=== PATIENT | female | born 2005 | race Caucasian/White ===

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

== ENCOUNTER 2025-01-05 20:05 | Emergency (ER) | payer OTHER, SELFPAY ==
[2025-01-05 20:29] VITALS: PULSE 84; RESP 18; TEMP 36.8; O2SAT 100; BMI 23.9
--- NOTE | 2025-01-05 20:35 | XR_ITS ---
PROCEDURE INFORMATION: Exam: XR Left Foot Exam date and time: 01/05/2025 9:36 PM Age: 19 years old Clinical indication: Pain; Foot; Left; Additional info: Left foot injury TECHNIQUE: Imaging protocol: Radiologic exam of the left foot. Views: 3 or more views. COMPARISON: CR XR KNEE LT 3V 03/21/2024 15:48 FINDINGS: Bones/joints: No acute fracture or dislocation. Soft tissues: Normal. IMPRESSION: No acute fracture or dislocation.
--- NOTE | 2025-01-05 20:35 | XR_ITS ---
PROCEDURE INFORMATION: Exam: XR Left Ankle Exam date and time: 01/05/2025 9:38 PM Age: 19 years old Clinical indication: Pain; Ankle; Left; Additional info: Left foot injury TECHNIQUE: Imaging protocol: Radiologic exam of the left ankle. Views: 3 or more views. COMPARISON: CR XR FOOT LT MIN 3V 05/01/2025 21:36 FINDINGS: Bones/joints: No acute fracture or dislocation. Soft tissues: Normal. IMPRESSION: No acute fracture or dislocation.
[2025-01-05 21:40] VITALS: BP 126/58; PULSE 71; RESP 16; O2SAT 100
--- NOTE | 2025-01-05 21:45 | PC.NURSE ---
pt to x-ray at this time
--- NOTE | 2025-01-05 21:48 | ED_ITS ---
<Statement entered by Yumiko White DO - 01/06/25 00:53> I was consulted by the KRAIG, and we discussed the complexity of the problems being addressed. I approved the treatment and management plan for this patient's care in the emergency department, thus performing a substantive portion of the medical decision making. Yumiko White DO Discharge Plan Disposition Patient Disposition: Home, Self-Care Condition: Good Chief Complaint: PAIN Prescriptions Prescriptions: No Action levothyroxine 175 mcg tablet 175 mcg PO DAILY Patient Comments: TAKE 1 TABLET BY MOUTH ONCE DAILY pantoprazole 40 mg tablet,delayed release (DR/EC) 40 mg PO DAILY Qty: 30 0RF fluoxetine 10 mg Tablet 10 mg PO DAILY ondansetron 4 mg tablet,disintegrating 4 mg PO Q8H PRN (Reason: nausea and vomiting) Qty: 10 0RF ondansetron HCl 4 mg tablet 4 mg PO Q8H PRN (Reason: nausea and vomiting) 4 Days Qty: 10 0RF Referrals Follow up/Referrals: Kuldeep Harris MD [Primary Care Provider] - See instructions Brittney Blackburn DPM [Staff Physician] - See instructions Activity Restrictions/Add. Instructions Additional Instructions/Restrictions: Please wear your hard soled shoe to give support to your foot and you may weight-bear as tolerated. I recommend ice elevation and Tylenol alternating with Motrin for pain and swelling. If you have continued symptoms I have referred you to foot and ankle specialist. Please call tomorrow to make your appointment. Clinical Impressions Clinical Impression: Injury of foot, left Stand Alone Forms Stand Alone Forms: Work/School Release Print Language Print Language: Afghan Discharge ED Provider: Yumiko White General Adult HPI General Chief complaint: PAIN Stated complaint: AO 4-16 fell over a chair,left foot pain Time Seen by Provider: 01/05/25 21:48 Mode of Arrival: Ambulatory Source of Information: Patient Description of Symptoms (Recalled from ER Triage Doc. by RN): Pt presents for evaluation of left foot pain. Pt states she was running to break up a dog fight and rolled her ankle. History of Present Illness HPI narrative: Patient presents for evaluation of left foot pain. Patient states that she was running through the yard trying to catch a dog and she accidentally kicked an outside couch with her left hallux. It hurt but she was able to bear weight they did now appear to have happened approximately 1 to 2:00 in the morning. However as the day is gone along patient reports it is difficult to stand on but she denies any numbness tingling loss of motor or sensory. She did not fall or suffer any other injury. Related Data Home Medications ?Medication ?Instructions ?Recorded ?Confirmed levothyroxine 175 mcg tablet 175 mcg PO DAILY Thyroid 09/09/23 05/05/24 fluoxetine 10 mg tablet 10 mg PO DAILY 03/28/24 05/05/24 Previous Rx's ?Medication ?Instructions ?Recorded pantoprazole 40 mg tablet,delayed 40 mg PO DAILY #30 tabs 02/22/24 release ondansetron 4 mg disintegrating 4 mg PO Q8H PRN nausea and 03/28/24 tablet vomiting #10 tabs ondansetron HCl 4 mg tablet 4 mg PO Q8H PRN nausea and 09/10/24 vomiting 4 days #10 tabs Allergies Allergy/AdvReac Type Severity Reaction Status Date / Time mushroom Allergy Rash Verified 05/05/24 14:14 [facility] Disclaimer: The information contained in this section may have been updated after the patient was seen, as this information can be updated by other users. Medical History Marijuana use Serous otitis media This seems to be more of an issue on the left side than the right Dysfunction of left eustachian tube Tinnitus PTSD (post-traumatic stress disorder) GERD (gastroesophageal reflux disease) Hypothyroid Suicidal intent Intentional acetaminophen overdose Suicidal ideation Pain in female pelvis Surgical History Status post arthroscopy of left shoulder Status post shoulder surgery H/O adenoidectomy H/O thyroidectomy History of tonsillectomy and adenoidectomy History of placement of ear tubes Family History Other No significant family history Social History Smoking Status: Never smoker alcohol intake: never substance use type: marijuana current occupational status: employed and student Travel in the last 8 weeks: None number of children: 0 caffeine: No Have you lived/traveled outside US in past 30 days?: No Contact w/someone who lives/traveled outside US past 30 days?: No Exposure to someone with infectious disease in past 14 days?: No Do you have a fever (greater than 100.4 F or 38 C)?: No Have you tested positive for COVID-19: No Exposed to someone with COVID-19 in past 14 days?: No Do you have a sore throat?: No Do you have a cough?: No Do you have any weakness?: No Do you have any diarrhea?: No Are you experiencing any unusual bleeding?: No Do you have any muscle aches/pain?: No Do you have any abdominal pain?: No Are you experiencing loss of taste or smell?: No Other Medical History Have you received the Flu Vaccine for this season: No Have you received the Pneumonia Vaccine: No ROS Obtained: Yes Systems reviewed as appropriate & no additional complaints except as documented Physical Exam General General appearance: alert and in no apparent distress Respiratory Respiratory exam: Present normal lung sounds bilaterally Cardiovascular Cardiovascular exam: Present regular rate Neurological Exam Neurological exam: Present alert and oriented X3 Medical Decision Making Medical Records Screening: Per USPSTF and CDC recommendations, given the prevalence of disease in our region, it is our hospital?s policy to screen for HIV and viral Hepatitis for all patients aged 18 and over and those with ongoing risk factors. Rick Inquiry Pt receiving controlled substance: No Vital Signs: 01/05/25 20:29 01/05/25 21:40 Temperature 98.3 F Temperature Source Oral Pulse Rate 71 Pulse Rate [Right] 84 Respiratory Rate 18 16 Blood Pressure 126/58 L Blood Pressure Source Automatic Cuff Blood Pressure Source [Right Arm] Automatic Cuff Blood Pressure Position Sitting Blood Pressure Position [Right Arm] Sitting 02 Sat by Pulse Oximetry 100 100 Oxygen Delivery Method Room Air Room Air Orders (Tests/Meds): ORDERS Category Date Time Status Ankle XR - Left minimum 3 Views [XR ankle LT min 3V] Exams 01/05/25 20:35 Taken Stat XR foot LT min 3V Stat Exams 01/05/25 20:35 Taken Medical Decision Narrative: In summary patient is a 19-year-old female who presents to the emergency department for evaluation of left foot injury. Patient's vital signs are stable with a blood pressure 126/58 pulse 84 with a sinus rhythm on bedside monitor breathing 18 times a minute satting at 100% on room air, afebrile on arrival at 98.3. Physical exam is remarkable for tenderness at the left hallux but there is no obvious bony deformity ecchymosis contusions abrasions. Patient has painful but full range of motion. She has no tenderness anywhere else of the foot or ankle.. Differential diagnosis includes contusion versus fracture. Initial workup will be conducted with plain film x-rays. Initial interventions include Tylenol and ibuprofen. Initial workup reviewed by me and my informal interpretation of imaging shows no acute fracture.. Upon repeat evaluation patient reported moderate improvement in her pain after Tylenol Motrin.. Given this patient will be discharged with a hard soled shoe referred to podiatry for further evaluation and management for continued symptoms. Patient advised to continue RICE as compression elevation along with Tylenol alternate with Motrin. Critical Care Critical Care Time Critical Care Time: No
[2025-01-05 22:50] VITALS: BP 108/65; PULSE 71; RESP 18; TEMP 36.8; O2SAT 99
== END 2025-01-05 22:52 | disposition home or self-care (01) ==
PROVIDERS: Emergency Provider Emergency Medicine; PCP Internal Medicine Adolescent Medicine
DX: S99.922A Unspecified injury of left foot, initial encounter (principal); W23.0XXA Caught, crushed, jammed, or pinched between moving objects, initial encounter
CPT/HCPCS: 73610; 73630; 99284

== ENCOUNTER 2025-03-10 13:50 | Emergency (ER) | payer OTHER, SELFPAY ==
--- OUTSIDE RECORDS SUMMARY | 2024-12-24 17:30 | XMS_ITS ---
Author Organization [facility] PE D ARIK Address [address] [facility] [address] [place], [place] [address] Care Team Providers Care Data Entry Machine Operator Name Role Phone Kuldeep Harris Primary Care Provider [phone] Dorothy Kaplan Unavailable [phone] Migration, Provider Unavailable Unavailable REASON FOR VISIT Multum To [facility] Conversion Encounter Medications Medication SIG (Take, Route, Frequency, Duration) Notes Start Date End Date Status Famotidine 40 MG 1 tab(s) orally once a day (at bedtime) for 14 days 10/26/2023 Active Levothyroxine Sodium 150 MCG 1 tab(s) or ally once a day for 30 days 12/06/2024 Active Encounters Encounter Location Date Provider Diagnosis [facility] PED ARIK [address] [facility] [address] [place], [place] [address] 12/24/2024 Provider Migration Plan Of Treatment Medication Medication Name Sig Start Date Stop Date Notes Levothyroxine Sodium 150 MCG 1 tab(s) or ally once a day for 30 days 12/06/2024 Progress Notes * Magaly NATIONOB:2005 (20 yo F)Acc No.[id number]:12/24/2024 Patient: Liz DIAZ Provider: Chey medina Migration :2005 A ge:19 Y S ex:Female Date:12/24/2024 Address:[address], [id number] Pcp:Kuldeep Harris Subjective: * Chief Complaints: * 1 . Multum To [facility] Conversion Encounter. * Medical History: * Medications: T aking Famotidine 40 MG Tablet 1 tab(s) orally once a day (at bedtime) Objective: * Vitals: Assessment: Plan: * Treatment: * * Electronic signature of Prov ider Migration on 03/10/2025 at 02:04 PM EDT Sign off status: Pending * Provider: Chey medina Migration Date: 0 12/24/2024 Generated for Kimi mcknight/Niraj/Julianoitting on: 03/10/2025 02:04 PM EDT
--- OUTSIDE RECORDS SUMMARY | 2025-01-24 06:00 | XMS_ITS ---
Author Organization [facility] D ARIK Address [address] [place] [address] Care Team Providers Care Human Geography Instructor Name Role Phone Kuldeep Harris Primary Care Provider [phone] RosauraDorothy shoemaker Unavailable [phone] Allergies No Known Allergies Results Component Value Reference Range Notes BASIC METABOLIC PANEL (32805 ) Reviewed date:01/25/2025 04:41:42 PM Interpretation: Performing Lab:[id number] [employer][id number] Kevin Willoughby Notes/Report: NON-FASTING; NON-FASTING GLUCOSE 58 65-99 mg/dL Fasting reference interval UREA NITROGEN (BUN) 10 7-25 mg/dL CREATININE 0.96 0.50-0.96 mg/dL EGFR 87 > OR = 60 mL/min/1.73m2 BUN/CREATININE RATIO SEE NOTE: 6-22 (calc) Not Reported: BUN and Creatinine are within reference range. SODIUM 142 135-146 mmol/L POTASSIUM 4.0 3.5-5.3 mmol/L CHLORIDE 105 98-110 mmol/L CARBON DIOXIDE 29 20-32 mmol/L CALCIUM 9.3 8.6-10.2 mg/dL TSH W/REFLEX TO FT4 (93217) Reviewed date:01/26/2025 07:53:01 AM Interpretation: Performing Lab:[facility] [id number] [employer][id number] Kevin Willoughby Notes/Report: NON-FASTING; NON-FASTING NON-FASTING; NON-FASTING TSH W/REFLEX TO FT4 >150.00 Reference Range > or = 20 Years 0.40-4.50 Ranges First trimester 0.26-2.66 Second trimester 0.55-2.73 Third trimester 0.43-2.91 T4, FREE 1.1 0.8-1.4 ng/dL REASON FOR VISIT 7 wk follow up, pulled muscle-lt side of lower back Medications Medication SIG (Take, Route, Frequency, Duration) Notes Start Date End Date Status Famotidine 40 MG 1 tab(s) orally once a day (at bedtime) for 14 days 10/26/2023 Active Methocarbamol 500 MG 1-2 tabs Orally alex ry 12 hours as needed for back pain for 5 days 01/24/2025 Active Levothyroxine Sodium 150 MCG 1 tab(s) or ally once a day for 30 days 12/06/2024 Active Social History Tobacco Use: Social History Observation Description Date Details (start date - stop date) Current Smoker NA - NA Smoking: Question Answer Notes Are you a: current every day smoker Section Notes: Vapes Vital Signs Temperature 97.9 degrees Fahrenheit 01/25/20 25 Blood pressure systolic 112 mm Hg 01/25/20 25 Blood pressure diastolic 68 mm Hg 025 Heart Rate 78 /min 01/24/2025 Height 63.25 in 01/24/2025 Weight 133.2 lbs 01/24/2025 BMI 23.41 kg/m2 01/24/2025 Encounters Encounter Location Date Provider Diagnosis [facility] ARIK [address] [facility] [address] [place] [address] 01/24/2025 Dorothy Rosaura Elevated serum creatinine R79.89 ; Hypothyroidism, unspecified type E03.9 and Acute left-sided low back pain without sciatica M54.50 Assessments Encounter Date Diagnosis (ICD Code) Assessment Notes Treatment Notes Treatment Clinical Notes Section Notes 01/24/2025 Elevated serum creatinine (ICD-10 - R79.89) repeat today, againn encouraged better water intake, avoid NSAIDS. Renal US was normal. 01/24/2025 Hypothyroidism, unspecified type (ICD-10 - E03.9) repeat labs today, again encouraged compliance 01/24/2025 Acute left-sided low back pain without sciatica (ICD-10 - M54.50) suspect SI strain and some muscle spasm. reminded not to take NSAID but may use APAP as needed, ice. Plan Of Treatment Medication Medication Name Sig Start Date Stop Date Notes Methocarbamol 500 MG 1-2 tabs Orally alex ry 12 hours as needed for back pain for 5 days 01/24/2025 Next Appt Details Follow Up: prn, Reason: Progress Notes * Magaly NATIONOB:2005 (20 yo F)Acc No.[id number]:01/24/2025 Progress Notes Patient: Liz DIAZ Provider: VIOLETTA Monzon :2005 A ge:20 Y S ex:Female Date:01/24/2025 Address:[facility] [address], [facility], [id number] Pcp:Kuldeep Harris Subjective: * Chief Complaints: * 1 . 7 wk follow up. 2. Pulled muscle-lt side of lower back. * HPI: g en: presents for 6-wk follow up for hypothyroidism. States she is taking her medicine everyday at present but did miss an entire week recently so she doubled up for a few days to get back on track. denies any side effects. Labs 6 weeks ago indicated much better control and improved renal function. Today she also reports some left lower back pain, localized to the SI region. Tightness and pain with rotation or bending. No radicular pain, numbness or tingling. Started a couple days ago and has not attempted anything for treatment. No change in bowel or bladder function. * ROS: R ESPIRATORY: no S hortness of breath. C ARDIOLOGY: no D izziness. n o C hest pain. n o P alpitations. C ONSTITUTIONAL: no L oss of appetite. n o F atigue. ? E NT: no C hange in voice. * Medical History: S easonal allergies, PE tubes, Hypothyroidism, MDD, PTSD, Anxiety d/o, Self cutting, Hashimotos' goiter, GERD, Normal EGD and colonoscopy 06/13. * Surgical History: T onsillectomy 2012, PE tubes 2014, Thyroidectomy 07/2019, left shoulder . * Hospitalization/Major Diagno stic Procedure: T hyroidectomy 07/2019, pancreatitis-[facility] 10/2023. * Family History: F ather: alive. M other: . P aternal Grand Father: . P aternal Grand Mother: alive, multiple sclerosis, diagnosed with Diabetes. M aternal Grand Father: alive. Maternal Grand Mother: alive. P aternal uncle: . P aternal aunt: alive. M aternal uncle: alive. M aternal aunt: alive. S iblings: alive. 1 brother(s) , 1 sister(s) - healthy. . Mom's side- History of Breast Cancer. * Social History: S moking A re you a: c urrent every day smoker. R ecreational drug use: no. Exercise: yes. Home smoke detector use: yes. Caffeine: yes, 1 soda daily. Living Will: No. Alcohol: no. Sexually active: yes, 1 partner, uses protection. Travel outside US: no. Occupation: Student. Vapes. * Medications: T aking Famotidine 40 MG Tablet 1 tab(s) orally once a day (at bedtime) , Taking Levothyroxine Sodium 150 MCG Tablet 1 tab(s) orally once a day , Medication List reviewed and reconciled with the patient * Allergies: N .K.D.A. Objective: * Vitals: N urse: jl, Pain: 5-back, Temp: 97.9, RR: 16, HR: 78, BP: 112/68, Ht: 63.25, Wt: 133.2, BMI:23.41. * Examination: G eneral Examination: General P leasant and Cooperative, NAD on RA,. Heart: R egular Rate and Rhythm, no murmur, rubs or gallops. Lungs: c lear to auscultation,. Abdomen: s oft, NT/ND, BS present. neck n o thyromegaly, supple,. Psych N ormal Mood/Affect. t blaine left SI and paraspinals in the LS region on the left, normal reflexes, gait, ROM. Assessment: * Assessment: 1. H ypothyroidism, unspecified type - E03.9 (Primary) 2 . E levated serum creatinine - R79.89 3 . A cute left-sided low back pain without sciatica - M54.50 Plan: * Treatment: Value Reference Range G LUCOSE 58 L 65-99 - mg/dL * U ABIGAIL NITROGEN (BUN) 10 7-25 - mg/dL * C REATININE 0.96 0.50-0.96 - mg/dL * B UN/CREATININE RATIO SEE NOTE: 03-12 - (calc) * S ODIUM 142 135-146 - mmol/L * P OTASSIUM 4.0 3.5-5.3 - mmol/L * C HLORIDE 105 98-110 - mmol/L * C ARBON DIOXIDE 29 20-32 - mmol/L * C ALCIUM 9.3 8.6-10.2 - mg/dL * E GFR 87 > OR = 60 - mL/min/1 .73m2 * Patricia Mota 01/25/2025 04: 41:28 PM EDT > pt informedThis lab was reviewed by Patricia Mota on 01/25/2025 at 16:41 PM EDT ?LAB: TSH W/REFLEX TO FT4 (28959)* Value Reference Range T SH W/REFLEX TO FT4 >150.00 H - mIU/L * T 4, FREE 1.1 0.8-1.4 - ng/dL * Patricia Mota 01/25/2025 04: 41:28 PM EDT > pt informedThis lab was reviewed by Dorothy Kaplan on 01/26/2025 at 07:53 AM EDT Clinical Notes: repeat labs today, again encouraged compliance??2.?Elevated serum creatinine?LAB: BASIC METABOLIC PANEL (78900)* Value Reference Range G LUCOSE 58 L 65-99 - mg/dL * U ABIGAIL NITROGEN (BUN) 10 7-25 - mg/dL * C REATININE 0.96 0.50-0.96 - mg/dL * B UN/CREATININE RATIO SEE NOTE: 03-12 - (calc) * S ODIUM 142 135-146 - mmol/L * P OTASSIUM 4.0 3.5-5.3 - mmol/L * C HLORIDE 105 98-110 - mmol/L * C ARBON DIOXIDE 29 20-32 - mmol/L * C ALCIUM 9.3 8.6-10.2 - mg/dL * E GFR 87 > OR = 60 - mL/min/1 .73m2 * NakulPaoloeddie Moreno 01/25/2025 04: 41:28 PM EDT > pt informedThis lab was reviewed by Patricia Mota on 01/25/2025 at 16:41 PM EDT ?LAB: TSH W/REFLEX TO FT4 (83971)* Value Reference Range T SH W/REFLEX TO FT4 >150.00 H - mIU/L * T 4, FREE 1.1 0.8-1.4 - ng/dL * Paolo Motaeddie Moreno 01/25/2025 04: 41:28 PM EDT > pt informedThis lab was reviewed by Dorothy Kaplan on 01/26/2025 at 07:53 AM EDT Clinical Notes: repeat today, againn encouraged better water intake, avoid NSAIDS. Renal US was normal. ??3.?Acute left-sided low back pain without sciatica? Start Methocarbamol Tablet, 500 MG, 1-2 tabs, Orally, every 12 hours as needed for back pain, 5 days, 20, Refills 0.?? Clinical Notes: suspect SI strain and some muscle spasm. reminded not to take NSAID but may use APAP as needed, ice.?? * Follow Up: p rn * * Sign off status: Completed true * Provider: VIOLETTA Monzon Date: 0 01/24/2025 Generated for Kimi mcknight/Niraj/eTransmitting on: 0 03/10/2025 02:05 PM EDT History and Physical Notes * Examination Category Sub-Category Detail Notes Category Not es General Examination Heart: Regular Rate and Rhythm, no murmur, rubs or gallops tender left SI and paraspinals in the LS region on the left, normal reflexes, gait, ROM Lungs: clear to auscultatio n, Abdomen: soft, NT/ND, BS pres ent neck no thyromegaly, supp le, General Pleasant and Coopera tive, NAD on RA, Psych Normal Mood/Affect
--- OUTSIDE RECORDS SUMMARY | 2025-03-06 11:00 | XMS_ITS ---
Author Organization [facility] D ARIK Address [address] [place] [address] Care Team Providers Care Vector Control Assistant Name Role Phone Kuldeep Harris Primary Care Provider Dorothy Kaplan Unavailable [phone] Allergies No Known Allergies Results Component Value Reference Range Notes TSH W/REFLEX TO FT4 (25887) Reviewed date:03/07/2025 11:22:12 AM Interpretation: Performing Lab:[facility], [facility] [id number] [facility] Center[facility]xtoCijmJI[address] Kevin Willoughby Notes/Report: NON-FASTING TSH W/REFLEX TO FT4 1.97 Reference Range > or = 20 Years 0.40-4.50 Ranges First trimester 0.26-2.66 Second trimester 0.55-2.73 Third trimester 0.43-2.91 REASON FOR VISIT 6 wk f/u Medications Medication SIG (Take, Route, Frequency, Duration) Notes Start Date End Date Status Levothyroxine Sodium 150 MCG 1 tab(s) or ally once a day for 30 days Active Famotidine 40 MG 1 tab(s) orally once a day (at bedtime) for 14 days 10/26/2023 Active Social History Tobacco Use: Social History Observation Description Date Details (start date - stop date) Current Smoker NA - NA Smoking: Question Answer Notes Are you a: current every day smoker Section Notes: Vapes Vital Signs Temperature 99 degrees Fahrenheit 03/06/2025 Blood pressure systolic 104 mm Hg 03/06/20 25 Blood pressure diastolic 72 mm Hg 025 Heart Rate 92 /min 03/06/2025 Height 63.25 in 03/06/2025 Weight 133 lbs 03/06/2025 BMI 23.37 kg/m2 03/06/2025 Encounters Encounter Location Date Provider Diagnosis [facility] IM PED [facility] [address] [place] [address] 03/06/2025 Dorothy Kaplan Hypothyroidism, unspecified type E03.9 Assessments Encounter Date Diagnosis (ICD Code) Assessment Notes Treatment Notes Treatment Clinical Notes Section Notes 03/06/2025 Hypothyroidism, unspecified type (ICD-10 - E03.9) repeat labs today, again encouraged compliance Plan Of Treatment Next Appt Details Follow Up: 3 Months,Mamta quinonez son: Progress Notes * CHAPIS ThaddeusClaryOB:2005 (20 yo F)Acc No.[id number]:03/06/2025 Progress Notes Patient: Liz DIAZ Provider: VIOLETTA Monzon :2005 A ge:20 Y S ex:Female Date:03/06/2025 Address:[facility] [address], [facility], [id number] Pcp:Kuldeep Harris Subjective: * Chief Complaints: * 1 . 6 wk f/u. * HPI: H ypothyroidism: 20-year-old female with history of hypothyroidism status post thyroidectomy presents to follow-up regarding management. She has historically been noncompliant with taking replacement but reports that she has been taking it faithfully since our visit 6 weeks ago. Presents today to repeat blood work. She denies any new concerns. * ROS: C ONSTITUTIONAL: Reviewed, No Symptoms Reported: Y es. * Medical History: S easonal allergies, PE tubes, Hypothyroidism, MDD, PTSD, Anxiety d/o, Self cutting, Hashimotos' goiter, GERD, Normal EGD and colonoscopy 06/13. * Surgical History: T onsillectomy 2012, PE tubes 2014, Thyroidectomy 07/2019, left shoulder . * Hospitalization/Major Diagno stic Procedure: T hyroidectomy 07/2019, pancreatitis-H 10/2023. * Family History: F ather: alive. [...] 1 tab(s) orally once a day , Discontinued Methocarbamol 500 MG Tablet 1-2 tabs Orally every 12 hours as needed for back pain , Medication List reviewed and reconciled with the patient * Allergies: N .K.D.A. Objective: * Vitals: N urse: jl, Pain: 0, Temp: 99, RR: 18, HR: 92, BP: 104/72, Ht: 63.25, Wt: 133, BMI:23.37. * Examination: G eneral Examination: General P leasant and Cooperative, NAD on RA,. Heart: R egular Rate and Rhythm, no murmur, rubs or gallops. Lungs: c lear to auscultation,. Abdomen: s oft, NT/ND, BS present. neck s upple,, no lymphadenopathy,. Psych N ormal Mood/Affect. Assessment: * Assessment: 1. H ypothyroidism, unspecified type - E03.9 (Primary) Plan: * Treatment: Value Reference Range T SH W/REFLEX TO FT4 1.97 - mIU/L Clinical Notes: repeat labs today, again encouraged compliance?? * Follow Up: 3 Months,prn * * Sign off status: Completed true * Provider: VIOLETTA Monzon Date: 03/06/2025 Generated for Kimi mcknight/Niraj/Sarkis on: 03/10/2025 02:05 PM EDT History and Physical Notes * Examination Category Sub-Category Detail Notes Category Not es General Examination Heart: Regular Rate and Rhythm, no murmur, rubs or gallops Lungs: clear to auscultatio n, Abdomen: soft, NT/ND, BS pres ent neck supple,, no lymphade nopathy, General Pleasant and Coopera tive, NAD on RA, Psych Normal Mood/Affect
[2025-03-10 14:00] VITALS: BP 126/58; PULSE 74; RESP 20; TEMP 37.1; O2SAT 99; BMI 23.6
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
--- OUTSIDE RECORDS SUMMARY | 2025-03-10 14:04 | XMS_ITS | Encounter Summary ---
Author Organization [facility] Address [address] [id number] Care Team Providers Care Cloth Stock Sorter Name Role Phone Con Maloneyen Champ MORALES Primary Care Provider [phone] Reason for Referral * Consultation (Routine) - Authorized Specialty Diagnoses / Procedures Referred By Denise hernandez Referred To Contact Nephrology Diagnoses Abnormal kidney function Dorothy Kaplan, HEEL PACKER [address] [place] [address] Phone: tel: fax: [facility], [place] [address] [facility], [address] [place] [address] Phone: tel: fax: Referral ID Status Reason Start Date Expiration Date Visits Requested Visits Authorized [id number] Authorized Specialty Services Required 10/28/2024 04/29/2026 1 1 * Consultation (Routine) - Authorized Specialty Diagnoses / Procedures Referred By Denise hernandez Referred To Contact Endocrinology Diagnoses Acquired hypothyroidism Dorothy Kaplan, HEEL PACKER [address] [address] Phone: tel: fax: [facility] Endocrinology [address] [place] [address] Phone: tel: fax: Referral ID Status Reason Start Date Expiration Date Visits Requested Visits Authorized [id number] Authorized Specialty Services Required 10/28/2024 04/29/2026 1 1 Encounter Details Date Type Department Care Team (Latest Contact Info) Description 10/28/2024 [facility] Practice [address] [place] [address] Dorothy Kaplan APRN [address] [address] Acquired hypothyroidism (Primary Dx); Abnormal kidney function Social History Tobacco Use Types Packs/Day Years Used Date Smoking Tobacco: Passive Smo ke Exposure - Never Smoker Alcohol Use Standard Drinks/Week Comments No 0 (1 standard drink = 0.6 oz pur e alcohol) Comments Unknown Sex and Gender Information Value Date Recorded Sex Assigned at Not on file Legal Sex Female 7:04 PM EDT Gender Identity Not on file Sexual Orientation Not on file documented as of this encounter Plan of Treatment Scheduled Referrals Name Type Priority Associated Diagnoses Orde r Schedule Ambulatory referral to Endocrinology Outpatient Referral Routine Acquired hypothyroidism Ordered: 10/28/2024 Ambulatory referral to Nephrology Outpatient Referral Routine Abnormal kidney function Expected: 10/28/2024 (Approximate), Expires: 04/27/2026 documented as of this encounter Visit Diagnoses Diagnosis Acquired hypothyroidism- Primary Unspecified hypothyroidism Abnormal kidney function Nonspecific abnormal results of kidney function study documented in this encounter Additional Health Concerns Assessment Noted Time A fall risk assessment has been complete d for the patient 08/13/2021 8:24 AM EST documented as of this encounter Care Teams Cloth Stock Sorter Relationship Specialty Start Date End Date Katherin Maloney DO [address] [address] PCP - General 02/01/21 documented as of this encounter
--- OUTSIDE RECORDS SUMMARY | 2025-03-10 14:04 | XMS_ITS | Encounter Summary ---
Author Organization [facility] Address [address] [place] [address] Care Team Providers Care College Specialist Name Role Phone Katherin Maloney DO Primary Care Provider [phone]- [phone] Encounter Details Date Type Department Care Team (Late st Contact Info) Description 04/16/2023 [facility] [address] [place] [address] Nica Rae DO [address] [place] [address] Chronic abdominal pain (Primary Dx) Social History Tobacco Use Types Packs/Day Years [...] as of this encounter Visit Diagnoses Diagnosis Chronic abdominal pain- Primary Abdominal pain, unspecified site documented in this encounter Additional Health Concerns Assessment Noted Time A fall risk assessment has been complete d for the patient 08/13/2021 8:24 AM EST documented as of this encounter Care Teams College Specialist Relationship Specialty Start Date End Date Katherin Maloney DO [address] [place] [address] PCP - General 02/01/21 documented as of this encounter
--- OUTSIDE RECORDS SUMMARY | 2025-03-10 14:04 | XMS_ITS | Clinical Summary ---
Author Organization Healthcare Address [address] [place] [address] Care Team Providers Care Sole Layer Name Role Phone Haider Katherin Champ MORALES Primary Care Provider [phone] Allergies No known active allergies Medications FLUoxetine (PROzac) 40 MG capsule 08/01/2021 Active Euthyrox 150 MCG tablet 07/17/2021 Active nitrofurantoin, macrocrystal-mon ohydrate, (Macrobid) 100 MG capsule 08/06/2021 Active pantoprazole (Protonix) 40 MG EC tablet Take 1 tablet (40 mg total) by mouth 1 (one) time each day before breakfast. 30 tablet 3 08/13/2021 Active Active Problems Problem Noted Date Diagnosed Date Chronic abdominal pain 08/13/2021 Bilious vomiting with nausea 08/13/2021 Nicotine dependence due to vaping tobacco produc t 08/13/2021 Family History Medical History Relation Name Comments Schizophrenia Father Conversions - Other Mother Family m ember Multiple sclerosis Other 1 Thyroid disease Other 2 Relation Name Status Comments Father Mother Other 1 Other 2 Social History Tobacco Use Types Packs/Day Years [...] on file Sexual Orientation Not on file Last Filed Vital Signs Vital Sign Reading Time Taken Comments Blood Pressure 122/66 09/05/2021 10:20 AM EST Pulse 86 09/05/2021 10:20 AM EST Temperature 36.9 C (98.4 F) 09/05/2021 10:00 AM EST Respiratory Rate 16 09/05/2021 10:20 AM EST Oxygen Saturation 100% 09/05/2021 10:20 AM EST Inhaled Oxygen Concentration - - Weight 64.5 kg (142 lb 3.2 oz) 09/05/2021 8:23 A M EST Height 160.5 cm (5' 3.19 ) 09/05/2021 8:23 AM ES T Body Mass Index 25.04 09/05/2021 8:23 AM EST Plan of Treatment Health Maintenance Due Date Last Done Comments [facility]-Depression Screening 2005 [facility]-Infant/Child/Adol SDOH Screenings 2005 [facility]- SDOH Screenings 2023 [facility]-Adult SDOH Screenings 2023 PYP-NVANF-98 Vaccine ( season) 2024 [facility]-Influenza Vaccine (Season Ended) 2025 09/10/2022, 07/10/2021, 06/29/2020, Additional history exists [facility]-DTaP,Tdap,and Td Vaccines (7 - Td or Tdap) 02/19/2026 02/20/2016, 02/01/2010, 06/29/2006, Additional history exists [facility]-Zoster Vaccines (1 of 2) 2055 02/20/2016, 11/10/2014, 01/12/2006 [facility]-Pneumococcal Vaccine: Pediatrics (0 to 5 Years) and At-Risk Patients (6 to 49 Years) Aged Out 2005, 2005, 2005 No longer eligible based on patient's age to complete this topic [facility]-Hepatitis B Vaccines Completed 006, 2005, 2005 [facility]-HIB Vaccines Completed 07/06/2006, , 2005, Additional history exists [facility]-IPV Vaccines Completed 02/01/2010, , 01/12/2006, Additional history exists [facility]-Varicella Vaccines Completed 6, 11/10/2014, 01/12/2006 HPV Vaccines Completed 10/19/2017, 03/21, 02/20/2016 [facility]-Hepatitis A Vaccines Completed 10/19/2017, 03/21 [facility]-Rotavirus Vaccines Aged Out No lo nger eligible based on patient's age to complete this topic Insurance [facility] MEDICAID [facility] MEDICAID Arturo Lozano, [place] [address] [facility] MEDICAID Advance Directives Documents on File Type Date Recorded Patient Sausage Stringer Expl anation Power of Cerner Analyst 08/12/2021 POA for An otf Care Teams Sole Layer Relationship Specialty Start Date End Date Katherin Maloney DO [address] [facility] [address] [id number] PCP - General 02/01/21
--- OUTSIDE RECORDS SUMMARY | 2025-03-10 14:05 | XMS_ITS | Clinical Summary ---
Author Organization [facility] Address [address] [place] [address] Phone Care Team Providers Care Chief Dietitian Name Role Phone Kuldeep Harris MD Primary Care Provider [phone] Allergies No known active allergies Medications LEVOthyroxine (SYNTHROID) 175 mcg Oral Tablet Take 175 mcg by mouth daily. Active FLUoxetine (PROZAC) 10 mg Oral Capsule Take 10 mg by mouth daily. Active linaCLOtide (LINZESS) 145 mcg Oral Capsule Take 145 mcg by mouth daily. Active Social History Tobacco Use Types Packs/Day Years Used Date Smoking Tobacco: Never Alcohol Use Standard Drinks/Week Comments No 0 (1 standard drink = 0.6 oz pur e alcohol) Sexually Active Control Partners Comments Never Comments Unknown Sex and Gender Information Value Date Recorded Sex Assigned at Not on file Legal Sex Female 7:34 PM EDT Gender Identity Not on file Sexual Orientation Not on file Obstetrics History Last Filed Vital Signs Vital Sign Reading Time Taken Comments Blood Pressure 134/77 02/21/2024 7:21 PM EDT Pulse 81 02/21/2024 7:21 PM EDT Temperature 36.8 C (98.3 F) 02/21/2024 5:51 PM EDT Respiratory Rate 17 02/21/2024 7:21 PM EDT Oxygen Saturation 100% 02/21/2024 7:21 PM EDT Inhaled Oxygen Concentration - - Weight 64.4 kg (142 lb) 02/21/2024 5:53 PM EDT Height 157.5 cm (5' 2 ) 02/21/2024 5:53 PM EDT Body Mass Index 25.97 02/21/2024 5:53 PM EDT Plan of Treatment Health Maintenance Due Date Last Done Comments Annual Wellness Exam 01/10/2008 Meningococcal B Vaccine (1 of 2 - Standard) 2021 COVID-19 Vaccine (1 - season) 2024 Influenza Vaccine (Season Ended) 2025 09/10/2022, 07/10/2021, 06/29/2020, Additional history exists DTaP/TDaP/Td (7 - Td or Tdap) 02/19/2026 02/20/2016, 02/01/2010, 02/01/2010, Additional history exists Pneumococcal Vaccine 0-49 Aged Out 2005, 2005, 2005 No longer eligible based on patient's age to complete this topic Hepatitis B Vaccine Completed 01/12/2006, 2005, 2005 HPV Completed 10/19/2017, 03/21, 02/20/2016 Insurance [facility] [place] Care Teams Chief Dietitian Relationship Specialty Start Date End Date Kuldeep Harris MD [address] [place] [address] [place] [id number] PCP - General Internal Medicine-Adolescent Medicine 12/15/23
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
[2025-03-10] MEDS: MUPIROCIN 2% OINTMENT 22GM TUBE 15 GM TP (14:06)
[2025-03-10] MEDS: ACETAMINOPHEN 500MG TAB 1000 MG PO (14:06)
[2025-03-10] MEDS: IBUPROFEN 400 MG TABLET PO (14:06)
[2025-03-10 14:08] VITALS: BP 127/62; PULSE 70; RESP 20; TEMP 37.1; O2SAT 100
== END 2025-03-10 14:12 | disposition home or self-care (01) ==
LOC: ER 14:03
PROVIDERS: Emergency Provider Student in an Organized Health Care Education/Training Program; PCP Internal Medicine Adolescent Medicine
DX: T24.031A Burn of unspecified degree of right lower leg, initial encounter (principal); F17.290 Nicotine dependence, other tobacco product, uncomplicated; K21.9 Gastro-esophageal reflux disease without esophagitis; F41.9 Anxiety disorder, unspecified
CPT/HCPCS: 99284

== ENCOUNTER 2025-04-28 11:28 | Outpatient (CLI) | payer OTHER, SELFPAY ==
--- OUTSIDE RECORDS SUMMARY | 2006-11-09 01:00 | XMS_ITS | Encounter Summary ---
Author Organization [facility] Address [address] [place] [address] Care Team Providers Care Gas Plant Worker Name Role Phone Unavailable Primary Care Provider Unavailabl e Encounter Details Date Type Department Care Team (Late st Contact Info) Description 11/09/2006 Hospital Encounter [facility] Division of Cardiology [address] [place] [phone] Social History Tobacco Use Types Packs/Day [...]
--- OUTSIDE RECORDS SUMMARY | 2025-03-06 11:00 | XMS_ITS ---
Author Organization [facility] D ARIK Address [address] [place] [address] Care Team Providers Care Recapper Name Role Phone Kuldeep Harris Primary Care Provider Dorothy Kaplan Unavailable [phone] Allergies No Known Allergies Results Component Value Reference Range Notes TSH W/REFLEX TO FT4 ([id number]) Reviewed date:03/07/2025 11:22:12 AM Interpretation: Performing Lab:CLAIRE, [facility] [id number] [facility] CenterCalixtoNhkwFJ[address] Kevin Willoughby Notes/Report: NON-FASTING TSH W/REFLEX TO FT4 1.97 Reference Range > or = 20 Years 0.40-4.50 Ranges First trimester 0.26-2.66 Second trimester 0.55-2.73 Third trimester 0.43-2.91 REASON FOR VISIT 6 wk f/u Medications Medication SIG (Take, Route, Frequency, Duration) Notes Start Date End Date Status Levothyroxine Sodium 150 MCG 1 tab(s) or ally once a day; Duration: 30 days Active Famotidine 40 MG 1 tab(s) orally once a day (at bedtime); Duration: 14 days 10/26/2023 Active Social History Tobacco [...] 03/06/2025 Encounters Encounter Location Date Provider Diagnosis [facility] PED [facility] [address] [place] [address] 03/06/2025 Dorothy Kaplan Hypothyroidism, unspecified type E03.9 Assessments Encounter Date Diagnosis (ICD Code) Assessment Notes Treatment Notes Treatment Clinical Notes Section Notes 03/06/2025 Hypothyroidism, unspecified type (ICD-10 - E03.9) repeat labs today, again encouraged compliance Plan Of Treatment Next Appt Details Follow Up: 3 Months,Mamta quinonez son: Progress Notes * Thaddeus NATIONClaryOB:2005 (20 yo F)Acc No.[id number]:03/06/2025 Progress Notes Patient: Liz DIAZ Provider: VIOLETTA Monzon :2005 A ge:20 Y S ex:Female Date:03/06/2025 Address:[facility] [address], [facility], [id number] Pcp:Kuldeep Harris Subjective: * Chief Complaints: * [...] Hospitalization/Major Diagno stic Procedure: T hyroidectomy 07/2019, pancreatitis- 10/2023. * Family History: F ather: alive. [...] true * Provider: VIOLETTA Monzon Date: 0 03/06/2025 Generated for Kimi mcknight/Niraj/Sarkis on: 0 04/28/2025 11:31 AM EDT History and Physical Notes * Examination Category Sub-Category Detail Notes Category Not es General Examination Heart: Regular Rate and Rhythm, no murmur, rubs or gallops Lungs: clear to auscultatio n, Abdomen: soft, NT/ND, BS pres ent neck supple,, no lymphade nopathy, General Pleasant and Coopera tive, NAD on RA, Psych Normal Mood/Affect
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
--- OUTSIDE RECORDS SUMMARY | 2025-04-28 11:32 | XMS_ITS | Encounter Summary ---
Author Organization [facility] Address [address] [id number] Care Team Providers Care Visual Training Aide Name Role Phone Con Maloneyen Champ MORALES Primary Care Provider [phone]- [phone] Reason for Referral * Consultation (Routine) - Authorized Specialty Diagnoses / Procedures Referred By Denise hernandez Referred To Contact Nephrology Diagnoses Abnormal kidney function Dorothy Kaplan, PONY ROUGHER [address] [place] [address] Phone: tel: fax: [facility] Nephrology, Bone & Mineral Metabolism [address] [facility], [address] [place] [address] Phone: tel: fax: Referral ID Status Reason Start Date Expiration Date Visits Requested Visits Authorized [id number] Authorized Specialty Services Required 10/28/2024 04/29/2026 1 1 * Consultation (Routine) - Authorized Specialty Diagnoses / Procedures Referred By Denise hernandez Referred To Contact Endocrinology Diagnoses Acquired hypothyroidism Dorothy Kaplan, PONY ROUGHER [address] [address] Phone: tel: fax: [facility] Endocrinology [address] [place] [address] Phone: tel: fax: Referral ID Status Reason Start Date Expiration Date Visits Requested Visits Authorized [id number] Authorized Specialty Services Required 10/28/2024 04/29/2026 1 1 Encounter Details Date Type Department Care Team (Latest Contact Info) Description 10/28/2024 [facility] [address] [place] [address] Dorothy Kaplan APRN [address] [address] Acquired hypothyroidism (Primary Dx); Abnormal kidney function [...] documented as of this encounter Care Teams Visual Training Aide Relationship Specialty Start Date End Date Katherin Maloney DO [address] [address] PCP - General 02/01/21 documented as of this encounter
--- OUTSIDE RECORDS SUMMARY | 2025-04-28 11:32 | XMS_ITS | Clinical Summary ---
Author Organization [facility] Address [address] [place] [address] Care Team Providers Care Health Diagnostics Teacher Name Role Phone Unavailable Primary Care Provider Unavailabl e Source Comments [facility] is fully rolled out with thefollowing exceptions:General Clinical Research [facility] Social History Tobacco Use Types Packs/Day Years Used Date Smoking Tobacco: Never Assessed Comments Unknown Sex and Gender Information Value Date Recorded Sex Assigned at Not on file Legal Sex Female 5:20 AM EST Gender Identity Not on file Sexual Orientation Not on file Plan of Treatment Health Maintenance Due Date Last Done Comments MMR IMMUNIZATION (1 of 1 - S tandard series) 2006 DTAP/Tdap/Td IMMUNIZATION (1 - Tdap) 01/10/2012 VARICELLA IMMUNIZATION (1 of 2 - 13+ 2-dose series) 2018 HPV IMMUNIZATION (1 - 3-dose series) 01/10/2020 MENINGOCOCCAL B VACCINE (1 o f 2 - Standard) 2021 HEPATITIS B IMMUNIZATION (1 of 3 - 19+ 3-dose series) 01/10/2024 COVID-19 Vaccine (1 - 2023-2 5 season) 2024 AMB SEASONAL FLU VACCINE (#1) 05/22/2025 HIB IMMUNIZATION Aged Out No longer e ligible based on patient's age to complete this topic IPV IMMUNIZATION Aged Out No longer e ligible based on patient's age to complete this topic MCV4 IMMUNIZATION Aged Out No longer eligible based on patient's age to complete this topic PNEUMOCOCCAL IMMUNIZATION Aged Out No longer eligible based on patient's age to complete this topic Respiratory Syncytial Virus (RSV) <20mo Aged Out No longer eligible b ased on patient's age to complete this topic
--- OUTSIDE RECORDS SUMMARY | 2025-04-28 11:32 | XMS_ITS | Clinical Summary ---
Author Organization [facility] Address [address] [place] [address] Care Team Providers Care Applications Support Specialist Name Role Phone Haider Katherin Champ MORALES Primary Care Provider +1- [phone] Allergies No known active allergies Medications FLUoxetine [...] SDOH Screenings 2023 [facility]-Adult SDOH Screenings 2023 [id number] Vaccine ( season) 2024 [facility]-Influenza Vaccine (#1) 05/22/202509/10, 07/10/2021, 06/29/2020, Additional history exists [facility]-DTaP,Tdap,and Td [...] patient's age to complete this topic Insurance [facility] MEDICAID [facility] MEDICAID [place], [place] [address] [facility] MEDICAID Advance Directives Documents on File Type Date Recorded Patient Chain Testing Machine Operator Expl anation Power of Packerhead Machine Operator 08/12/2021 POA for An otf Care Teams Applications Support Specialist Relationship Specialty Start Date End Date Katherin Maloney DO [address] [facility] [address] [id number] PCP - General 02/01/21
--- OUTSIDE RECORDS SUMMARY | 2025-04-28 11:32 | XMS_ITS | Encounter Summary ---
Author Organization [facility] Address [address] [place] [address] Care Team Providers Care Mechanic Insulator Name Role Phone Katherin Maloney DO Primary Care Provider +1- [phone] Encounter Details Date Type Department Care Team (Late st Contact Info) Description 04/16/2023 [facility] [address] [place] [address] Nica Rae DO [address] [place] [address] Chronic abdominal pain (Primary Dx) Social [...] documented as of this encounter Care Teams Mechanic Insulator Relationship Specialty Start Date End Date Katherin Maloney DO [address] [place] [address] PCP - General 02/01/21 documented as of this encounter
--- OUTSIDE RECORDS SUMMARY | 2025-04-28 11:32 | XMS_ITS | Clinical Summary ---
Author Organization [facility] Address [address] [place] [address] Phone Care Team Providers Care Correctional Substance Abuse Counselor Name Role Phone Kuldeep Harris MD Primary Care Provider [phone] Allergies No known active allergies Medications LEVOthyroxine [...] - Standard) 2021 COVID-19 Vaccine (1 - 2023- season) 2024 Influenza Vaccine (#1) 2025 , 07/10/2021, 06/29/2020, Additional history exists DTaP/TDaP/Td (7 - Td or Tdap) 02/19/2026 02/20/2016, 02/01/2010, 02/01/2010, Additional history exists Pneumococcal Vaccine 0-49 Aged Out 2005, 2005, 2005 No longer eligible based on patient's age to complete this topic Hepatitis B Vaccine Completed 01/12/2006, 2005, 2005 HPV Completed 10/19/2017, 03/21, 02/20/[address] [facility] [address] Care Teams Correctional Substance Abuse Counselor Relationship Specialty Start Date End Date Kuldeep Harris MD [address] [place] [id number] PCP - General Internal Medicine-Adolescent Medicine 12/15/23
--- OUTSIDE RECORDS SUMMARY | 2025-04-28 11:32 | XMS_ITS | Patient Health Record ---
Author Organization [facility] Address [address] [place], [place] [address] Care Team Providers Care Mechanical Design Engineer Products Name Role Phone Kuldeep Harris Primary Care Provider [phone] Dorothy Kaplan Unavailable [phone] Dorothy Covington Unavailable [phone] Migration, Provider Unavailable Unavailable Allergies No Known Allergies Results Component Value Reference Range Notes HCG, TOTAL, QN (8396) Reviewed date:03/21/2025 02:16:56 PM Interpretation: Performing Lab:CLAIRE [facility] Uecl1369 [email or web address] [facility] CenterOijqJX[address] Kevin Willoughby Notes/Report: NON-FASTING HCG, TOTAL, QN <5 Reference Range Non or premenopausal <5 Postmenopausal <10 Values from different assay methods may vary. The use of this assay to monitor or to diagnose patients with cancer or any condition unrelated to has not been cleared or approved by the FDA or the ballroom dance instructor of the assay. TSH W/REFLEX TO FT4 (55400) Reviewed date:03/07/2025 11:22:12 AM Interpretation: Performing Lab:CLAIRE Elecsnete1355 Digiticklisbeth [facility] CenterUnnwVH[address] Kevin Willoughby Notes/Report: NON-FASTING TSH W/REFLEX TO FT4 1.97 Reference Range > or = 20 Years 0.40-4.50 Ranges First trimester 0.26-2.66 Second trimester 0.55-2.73 Third trimester 0.43-2.91 TSH W/REFLEX TO FT4 (41554) Reviewed date:05/05/2024 10:58:26 AM Interpretation: Performing Lab:Laurie RANGEL [employer] Dvbo6831 [address] BlXRONet, [place] CarlinTfhnPA[address] Kevin Willoughby Notes/Report: NON-FASTING NON-FASTING TSH W/REFLEX TO FT4 >150.00 Reference Range 1-19 Years 0.50-4.30 Ranges First trimester 0.26-2.66 Second trimester 0.55-2.73 Third trimester 0.43-2.91 T4, FREE 0.6 0.8-1.4 ng/dL Ultrasound : Breast, Left Reviewed date:05/13/2024 12:32:39 PM Interpretation: Performing Lab: Notes/Report: TSH W/REFLEX TO FT4 (94549) Reviewed date:12/06/2024 03:09:40 PM Interpretation: Performing Lab:Laurie RANGEL [employer] Wkmj7197 [address] Mariam, [place] CarlinQmfxAV[address] Kevin Willoughby Notes/Report: NON-FASTING; NON-FASTING TSH W/REFLEX TO FT4 0.76 Reference Range 1-19 Years 0.50-4.30 Ranges First trimester 0.26-2.66 Second trimester 0.55-2.73 Third trimester 0.43-2.91 TSH W/REFLEX TO FT4 (87638) Reviewed date:01/26/2025 07:53:01 AM Interpretation: Performing Lab:Laurie RANGEL [employer] Jfyg8207 [address] Mariam, [place] CarlinEozoPI[address] Kevin Willoughby Notes/Report: NON-FASTING; NON-FASTING NON-FASTING; NON-FASTING TSH W/REFLEX TO FT4 >150.00 Reference Range > or = 20 Years 0.40-4.50 Ranges First trimester 0.26-2.66 Second trimester 0.55-2.73 Third trimester 0.43-2.91 T4, FREE 1.1 0.8-1.4 ng/dL CBC (INCLUDES DIFF/PLT) (639 9) Reviewed date:10/24/2024 12:39:18 PM Interpretation: Performing Lab:Laurie RANGEL [employer] [address], Domino MagazineGzvzVJ[address] Kevin Willoughby Notes/Report: NON-FASTING; NON-FASTING; NON-FASTING WHITE [...] MPV 10.9 7.5-12.5 fL ABSOLUTE NEUTROPHILS 4070 5408-5838 cells/uL ABSOLUTE LYMPHOCYTES 2634 850-3900 cells/uL ABSOLUTE MONOCYTES 481 200-950 cells/uL ABSOLUTE EOSINOPHILS 148 15-500 cells/uL ABSOLUTE BASOPHILS 67 0-200 cells/uL NEUTROPHILS 55 LYMPHOCYTES 35.6 MONOCYTES 6.5 EOSINOPHILS 2.0 BASOPHILS 0.9 BASIC METABOLIC PANEL (98681 ) Reviewed date:01/25/2025 04:41:42 PM Interpretation: Performing Lab:CLAIRE, [facility] Oxbk4597 [facility] Kevin Willoughby Notes/Report: NON-FASTING; NON-FASTING GLUCOSE 58 [...] 29 20-32 mmol/L CALCIUM 9.3 8.6-10.2 mg/dL BASIC METABOLIC PANEL (33289 ) Reviewed date:12/06/2024 03:09:40 PM Interpretation: Performing Lab:CB, simfy Wmyo7696 [email or web address] [facility] CenterDecgXL[address] Kevin Willoughby Notes/Report: NON-FASTING; NON-FASTING GLUCOSE 98 65-99 mg/dL Fasting reference interval UREA NITROGEN (BUN) 10 7-20 mg/dL CREATININE 0.98 0.50-0.96 mg/dL EGFR 85 > OR = 60 mL/min/1.73m2 BUN/CREATININE RATIO 10 6-22 (calc) SODIUM 140 135-146 mmol/L POTASSIUM 4.4 3.8-5.1 mmol/L CHLORIDE 106 98-110 mmol/L CARBON DIOXIDE 26 20-32 mmol/L CALCIUM 9.4 8.9-10.4 mg/dL COMPREHENSIVE METABOLIC PANE L (31924) Reviewed date:10/24/2024 12:39:18 PM Interpretation: Performing Lab:CLAIRE [facility]gesG[facility] Servicese1355 [email or web address] [facility] CenterRnaxLB[address] Kevin Willoughby Notes/Report: NON-FASTING; NON-FASTING; NON-FASTING GLUCOSE [...] 33 12-32 U/L ALT 13 5-32 U/L Ultrasound : Renal, bilatera l Reviewed date:11/07/2024 02:45:13 PM Interpretation: Performing Lab: Notes/Report: TSH W/REFLEX TO FT4 (50976) Reviewed date:10/24/2024 12:39:18 PM Interpretation: Performing Lab:CLAIRE, [facility] Zrww9750 [address] [facility], [facility] CenterVihlAF[address] Kevin Willoughby Notes/Report: NON-FASTING; NON-FASTING; NON-FASTING NON-FASTING; NON-FASTING; NON-FASTING TSH W/REFLEX TO FT4 >150.00 Reference Range 1-19 Years 0.50-4.30 Ranges First trimester 0.26-2.66 Second trimester 0.55-2.73 Third trimester 0.43-2.91 T4, FREE 1.5 0.8-1.4 ng/dL PROLACTIN (746) Reviewed date:10/25/2024 02:26:12 PM Interpretation: Performing Lab:CLAIRE [employer] Bmfr3912 [address] [facility] CenterEcdyZJ[address] Kevin Willoughby Notes/Report: NON-FASTING; NON-FASTING; NON-FASTING PROLACTIN 7.1 Reference Range Females Non- 3.0-30.0 10.0-209.0 Postmenopausal 2.0-20.0 TEST AUTHORIZATION Reviewed date:10/24/2024 08:52:59 PM Interpretation: Performing Lab:CLAIRE [facility] Tmso7083 [address] [facility] CenterWbiuUL[address] Kevin Willoughby Notes/Report: NON-FASTING; NON-FASTING; NON-FASTING TEST NAME: PROLACTIN TEST CODE: [id number] CLIENT CONTACT: JOSE MIGUEL VERA REPORT ALWAYS MESSAGE SIGNATURE The laboratory testing on this patient was verbally requested or confirmed by the ordering physician or his or her authorized media sales representative after contact with an employee of [employer]. Federal regulations require that we maintain on file written authorization for all laboratory testing. Accordingly we are asking that the ordering physician or his or her authorized media sales representative sign a copy of this report and promptly return it to the client services coordinator. Signature: COMMENT Please fax this signed form to [phone]. Please do not attempt to return this document by other methods. Documents will not be viewed by a media sales representative. Please do not use this fax number for other service requests. Medications Medication SIG (Take, Route, Frequency, Duration) Notes Start Date End Date Status Levothyroxine Sodium 150 MCG 1 tab(s) or ally once a day; Duration: 30 days Active Cephalexin 500 MG 1 capsule Orally 3 t imes a day; Duration: 7 days 03/20/2025 Active Immunizations Vaccine Route Administration Date Status Comme nts Fluvirin--Influenza vaccine 3+ year IM Intramuscular 06/21/2013 Administered Varivax (Varicella) VFC SC Subcutaneous 11/10/2014 Adminis tered Social History Tobacco Use: Social History Observation Description Date Details (start date - stop date) Current Smoker NA - NA Smoking: Question Answer Notes Are you a: current every day smoker Section Notes: Lives with PGM who has custo dy. [...] PGM who has custo dy. Vapes Vapes Lives with PGM who has custo dy. Vapes Vapes Lives with PGM who has custo dy. Lives with PGM who has custo dy. Lives with PGM who has custo dy. Lives with PGM who has custo dy. Lives with PGM who has custo dy. Lives with PGM who has custo dy. Lives with PGM who has custo dy. Lives with PGM who has custo dy. Vapes Lives with PGM who has custo dy. Vapes Problems Problem Type SNOMED Code ICD Code Onset Dates Problem Status W/U Status Risk Notes Problem Generalized abdominal pain (601107480) Generalized abdominal pain (R10.84) Active confirmed Problem Nausea (023252029) Nausea (R11.0) Active confir med Problem Gastroesophageal reflux disease (240630967) GERD (gastroesophageal reflux disease) (K21.9) Active confirmed Problem Anxiety (80540781) Anxiety (F41.9) Active confi rmed Problem Seasonal allergic rhinitis (233387690) Seasonal allergic rhinitis (J30.2) Active confirmed Problem Sleep disturbance (20431528) Sleep disturbance (G47.9) Active confirmed Problem Chronic pain (71895678) Other chronic pain (G89.29) Active confirmed Problem Goiter (9055716) Goiter (E04.9) Active confirme d Problem Acquired hypothyroidism (372326679) Acquired hypothyroidism (E03.9) Active confirmed Problem Mood disorder (30417573) Mood disorder (F39) Active confirmed Problem Irregular menstrual bleeding (26276996) Irregular menstrual bleeding (N92.6) Active confirmed Problem Periumbilical abdominal pain (970297466) Periumbilical abdominal pain (R10.33) Active confirmed Problem Hypothyroidism (57726790) Hypothyroidism, unspecified type (E03.9) Active confirmed Problem Overweight (870726078) Pediatric overweight (E66.3) Active confirmed Problem 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) Abnormal involuntary movement (R25.9) Active confirmed Problem Dysphagia (44161726) Dysphagia, unspecified type (R13.10) Active confirmed Problem Deformity of chest wall (237740892) Chest wall asymmetry (Q67.8) Active confirmed Problem Vomiting (854852394) Recurrent vomiting (R11.10) Active confirmed Problem Constipation (82479594) Unspecified constipation (K59.00) Active confirmed Problem Autoimmune hypothyroidism (296407007) 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 Problem History of gastrointestinal disease (023324300) History of gastroesophageal reflux (GERD) (Z87.19) Active confirmed Problem Missed period (77593523) Missed period (N92.6) Active confirmed Problem Diffuse goiter (093896625) Goiter diffuse (E04.9) Active confirmed Problem History of attempted suicide (849115654) History of attempted suicide (Z91.5) Active confirmed Vital Signs Heart Rate 84 /min 03/20/2025 Temperature 97.5 degrees Fahrenheit 03/20/2025 Blood pressure diastolic 78 mm Hg 03/20/2025 Height 63.25 in 03/20/2025 Blood pressure systolic 108 mm Hg 03/20/2025 Weight 137.2 lbs 03/20/2025 BMI 24.11 kg/m2 03/20/2025 Encounters Encounter Location Date Provider Diagnosis [facility] [address] [place] [address] 12/24/2024 Provider Migration [facility] [address] [facility] [address] [place] [address] 05/03/2024 Dorothy Moraence Acquired hypothyroidism E03.9 and Mass of upper outer quadrant of left breast N63.21 [facility] [address] [facility] [address] [place] [address] 10/20/2024 Dorothy Rosaura Hypothyroidism, unspecified type E03.9 ; Elevated serum creatinine R79.89 and Non-compliant patient Z91.199 [facility] [address] [facility] [address] [place] [address] 12/01/2024 [facility] Hypothyroidism, unspecified type E03.9 and Elevated serum creatinine R79.89 [facility] [address] [place] [address] 01/24/2025 Dorothy Rosaura Elevated serum creatinine R79.89 ; Hypothyroidism, unspecified type E03.9 and Acute left-sided low back pain without sciatica M54.50 [facility] [address] [facility] [address] [place] [address] 03/06/2025 Dorothy Rosaura Hypothyroidism, unspecified type E03.9 [facility] [address] [facility] [address] [place] [address] 03/20/2025 Dorothy Kaplan Skin burn T30.0 ; Cellulitis of right leg L03.115 and Nausea and vomiting, unspecified vomiting type R11.2 [facility] [address] [place], [place] [address] 05/05/2024 Dorothy Kaplan [facility] [address] [place], [place] [address] 10/28/2024 Dorothy Kaplan Abnormal kidney function N28.9 [facility] [address] [place], [place] [address] 12/06/2024 Dorothy Kaplan [facility] [address] [facility] [address] [place], [place] [address] 03/15/2025 Dorothy Kaplan Assessments Encounter Date Diagnosis (ICD [...] E03.9) repeat labs today, again encouraged compliance 03/20/2025 Cellulitis of right leg (ICD-10 - L03.115) 03/20/2025 Skin burn (ICD-10 - T30.0) Recommend cleanse with antibacterial soap, gently, pat dry and apply a thin layer of Vaseline or Aquaphor. Follow-up again in 1 week, sooner with any concerns 03/20/2025 Nausea and vomiting, unspecified vomiting type (ICD-10 - R11.2) 01/24/2025 Acute left-sided low back pain without sciatica (ICD-10 - M54.50) suspect SI strain and some muscle spasm. reminded not to take NSAID but may use APAP as needed, ice. 10/20/2024 Non-compliant patient (ICD-10 - Z91.199) Plan Of Treatment Pending Test Test Name Order Date Barium Swallow 08/31/2018 EEG 05/05/2019 Ultrasound : Thyroid 07/12/2018 Physical Therapy 01/20/2019 Physical Therapy 04/01/2021 Occupational Therapy : Eval & Treatment 04/01/2021 [...] Coverage Start Date Coverage End Date [employer] [facility] [address] [address] [place] [address] [id number] Liz Mota Self - patient is the insured Medical (General) History Medical History History ICD Code Seasonal allergies PE tubes hypothyroidism MDD PTSD Anxiety d/o self cutting Hashimotos' goiter GERD Normal EGD and colonoscopy 06/13 Surgical History Surgery Date(Month/Year) Tonsillectomy 2012 PE tubes 2014 Thyroidectomy 07/2019 left shoulder Hospitalization History Reason Date(Month/Year) pancreatitis-[facility] 10/2023 Thyroidectomy 07/2019
== END 2025-04-28 23:59 | disposition home or self-care (01) ==
LOC: LAB 11:29
PROVIDERS: PCP Internal Medicine Adolescent Medicine; Visit Provider Obstetrics & Gynecology
DX: N92.6 Irregular menstruation, unspecified (principal); Z32.01 Encounter for pregnancy test, result positive
CPT/HCPCS: 36415; 84144; 84702

== ENCOUNTER 2025-05-05 19:51 | Emergency (ER) | payer OTHER, SELFPAY ==
--- OUTSIDE RECORDS SUMMARY | 2006-11-09 01:00 | XMS_ITS | Encounter Summary ---
Author Organization [facility] Address [address] [place] [address] Care Team Providers Care Summer Camp Counselor Name Role Phone Unavailable Primary Care Provider Unavailabl e Encounter Details Date Type Department Care Team (Late st Contact Info) Description 11/09/2006 Hospital Encounter [facility] Division of Cardiology [address] [place] [phone] Social History Tobacco Use Types Packs/Day [...]
--- OUTSIDE RECORDS SUMMARY | 2025-03-06 11:00 | XMS_ITS ---
Author Organization [facility] D ARIK Address [address] [place] [address] Care Team Providers Care Construction Job Titles Name Role Phone Kuldeep Harris Primary Care Provider [phone] Dorothy Kaplan Unavailable [phone] Allergies No Known Allergies Results Component Value Reference Range Notes TSH W/REFLEX TO FT4 ([id number]) Reviewed date:03/07/2025 11:22:12 AM Interpretation: Performing Lab:CLAIRE, [facility] [id number] [facility] CenterCalixtoZjuxRA[address] Kevin Willoughby Notes/Report: NON-FASTING TSH W/REFLEX TO [...] 03/06/2025 Encounters Encounter Location Date Provider Diagnosis Located within [facility] PED ARI[facility] [address] [place] [address] 03/06/2025 Dorothy Kaplan Hypothyroidism, unspecified type E03.9 Assessments Encounter Date Diagnosis (ICD Code) Assessment Notes Treatment Notes Treatment Clinical Notes Section Notes 03/06/2025 Hypothyroidism, unspecified type (ICD-10 - E03.9) repeat labs today, again encouraged compliance Plan Of Treatment Next Appt Details Follow Up: 3 Months,Mamta quinonez son: Progress Notes * Thaddeus NATIONClaryOB:2005 (20 yo F)Acc No.[id number]:03/06/2025 Progress Notes Patient: Liz DIAZ Provider: VIOLETTA Monzon :2005 A ge:20 Y S ex:Female Date:03/06/2025 Address:[facility] [address], [facility], [id number] Pcp:Kuldeep Harris Subjective: * Chief Complaints: * [...] 03/06/2025 Generated for Kimi mcknight/Niraj/Sarkis on: 0 05/05/2025 07:59 PM EDT History and Physical Notes * Examination Category Sub-Category Detail Notes Category Not es General Examination Heart: Regular Rate and Rhythm, no murmur, rubs or gallops Lungs: clear to auscultatio n, Abdomen: soft, NT/ND, BS pres ent neck supple,, no lymphade nopathy, General Pleasant and Coopera tive, NAD on RA, Psych Normal Mood/Affect
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
[2025-05-05 19:59] VITALS: BP 110/89; PULSE 98; RESP 16; TEMP 37.2; O2SAT 100; BMI 24.1
--- OUTSIDE RECORDS SUMMARY | 2025-05-05 19:59 | XMS_ITS | Clinical Summary ---
Author Organization [facility] Address [address] [place] [address] Care Team Providers Care Counselor Education Professor Name Role Phone Haider Katherin Champ MORALES Primary Care Provider [phone] Allergies No known active allergies Medications FLUoxetine [...] Date Last Done Comments [facility]-Depression Screening 2005 [facility]-/Child/Adol SDOH Screenings 2005 [facility]- SDOH Screenings 2023 [facility]-Adult SDOH Screenings 2023 [id number] Vaccine ( season) 2024 [facility]-Influenza Vaccine (#1) [...] patient's age to complete this topic [facility] MEDICAID Arturo [place], [place] [address] [facility] Advance Directives Documents on File Type Date Recorded Patient Supervisor Purification Expl anation Power of Type Disk Quality Control Supervisor 08/12/2021 POA for An otf Care Teams Counselor Education Professor Relationship Specialty Start Date End Date Katherin Maloney DO [address] [facility] [address] [id number] PCP - General 02/01/21
--- OUTSIDE RECORDS SUMMARY | 2025-05-05 19:59 | XMS_ITS | Encounter Summary ---
Author Organization [facility] Address [address] [place] [address] Care Team Providers Care Design Analyst Name Role Phone Katherin Maloney DO Primary Care Provider [phone]- [phone] Encounter Details Date Type Department Care Team (Late st Contact Info) Description 04/16/2023 [facility] [address] [place] [address] Nica Rae DO [address] [place] [address] Chronic abdominal pain (Primary Dx) Social [...] documented as of this encounter Care Teams Design Analyst Relationship Specialty Start Date End Date Katherin Maloney DO [address] [place] [address] PCP - General 02/01/21 documented as of this encounter
--- OUTSIDE RECORDS SUMMARY | 2025-05-05 19:59 | XMS_ITS | Clinical Summary ---
Author Organization [facility] Address [address] [place] [address] Care Team Providers Care Flexo Folder Gluer Operator Name Role Phone Unavailable Primary Care Provider Unavailabl e Source Comments [facility] is fully rolled out with thefollowing exceptions:General [...]
--- NOTE | 2025-05-05 20:00 | ED_ITS ---
<Statement entered by Kelsi Lu MD - 05/05/25 22:22> I was consulted by the KRAIG, and we discussed the complexity of the problems being addressed. I approved the treatment and management plan for this patient's care in the emergency department, thus performing a substantive portion of the medical decision making. Kelsi Lu MD, YOLANDA, FACE Discharge Plan Disposition Patient Disposition: Home, Self-Care Prescriptions Prescriptions: No Action levothyroxine 175 mcg capsule 175 mcg PO DAILY fluoxetine 10 mg Tablet 10 mg PO DAILY Referrals Follow up/Referrals: Charmaine Hector DO [Staff Physician, DENTAL HYGIENE TEACHER] - See instructions Kuldeep Harris MD [Primary Care Provider, Internal Medicine] - See instructions Activity Restrictions/Add. Instructions Additional Instructions/Restrictions: As discussed you have a confirmed intrauterine about 5 weeks within your uterus. There was a cyst noted around the right ovary that is most likely just a cyst but it is possible that it is also an ectopic which would be a heterotopic in the setting of a intrauterine as well. This is an incredibly unlikely and rare diagnosis however because of this we want you to follow-up closely with Dr. Hector. Please call her on Thursday and make an appointment on Thursday. As discussed she also put a note in your chart and is going to discuss with her front staff to overbook and make sure that you can get in on Thursday. Return to the emergency department with any significant worsening of your abdominal pain or other concerns. Clinical Impressions Clinical Impression: Confirmed intrauterine on ultrasound, Ovarian cyst Instructions Patient Instructions: DI for Acute Abdominal Pain Print Language Print Language: Persian Discharge ED Provider: Kelsi Lu General Adult HPI <Sylvia Ocampo APRN - Last Filed: 05/05/25 22:01> General Chief complaint: Abdominal Pain Stated complaint: 4-8 weeks,stomach pain,left side pain Time Seen by Provider: 05/05/25 19:59 History of Present Illness HPI narrative: patient is a 20-year-old female with no significant past medical history who presents to the ED stating that she is approximately 4 to 8 weeks , has not seen OB yet, is having left lower quadrant and suprapubic abdominal pain over the past 2 days. Related Data Home Medications ?Medication ?Instructions ?Recorded ?Confirmed fluoxetine 10 mg tablet 10 mg PO DAILY 03/28/2401/19 levothyroxine 175 mcg capsule 175 mcg PO DAILY 5 02/01/25 Allergies Allergy/AdvReac Type Severity Reaction Status Date / Time mushroom Allergy Rash Verified 02/01/25 13:09 [facility] <Sylvia Ocampo APRN - Last Filed: 05/05/25 22:01> [facility] Disclaimer: The information contained in this section may have been updated after the patient was seen, as this information can be updated by other users. Medical History Marijuana use Serous otitis media This seems to be more of an issue on the left side than the right Dysfunction of left eustachian tube Tinnitus PTSD (post-traumatic stress disorder) GERD (gastroesophageal reflux disease) Hypothyroid Suicidal intent Intentional acetaminophen overdose Suicidal ideation Pain in female pelvis Surgical History Status post arthroscopy of left shoulder Status post shoulder surgery H/O adenoidectomy H/O thyroidectomy History of tonsillectomy and adenoidectomy History of placement of ear tubes Family History Other No significant family history Social History Smoking Status: Former smoker tobacco type: e-cigarettes alcohol intake: never substance use type: marijuana current occupational status: employed and student Travel in the last 8 weeks?: None number of children: 0 caffeine: No Have you lived/traveled outside US in past 30 days?: No Contact w/someone who lives/traveled outside US past 30 days?: No Exposure to someone with infectious disease in past 14 days?: No Do you have a fever (greater than 100.4 F or 38 C)?: No Have you tested positive for COVID-19?: No Exposed to someone with COVID-19 in past 14 days?: No Do you have a sore throat?: No Do you have a cough?: No Do you have any weakness?: No Do you have any diarrhea?: No Are you experiencing any unusual bleeding?: No Do you have any muscle aches/pain?: No Do you have any abdominal pain?: No Are you experiencing loss of taste or smell?: No Other Medical History Have you received the Flu Vaccine for this season: No Have you received the Pneumonia Vaccine: No <Sylvia Ocampo APRN - Last Filed: 05/05/25 22:01> ROS Obtained: Yes Systems reviewed as appropriate & no additional complaints except as documented Physical Exam <Sylvia Ocampo APRN - Last Filed: 05/05/25 22:01> General General appearance: alert Head Head exam: atraumatic Respiratory Respiratory exam: Present normal lung sounds bilaterally Cardiovascular Cardiovascular exam: Present regular rate Abdominal Exam Abdominal exam: Present soft and tenderness (Suprapubic and left lower quadrant) Neurological Exam Neurological exam: Present alert and oriented X3 Skin Skin exam: Present warm Medical Decision Making <Sylvia Ocampo APRN - Last Filed: 05/05/25 22:01> Medical Records Screening: Per USPSTF and CDC recommendations, given the prevalence of disease in our region, it is our hospital?s policy to screen for HIV and viral Hepatitis for all patients aged 18 and over and those with ongoing risk factors. Rick Inquiry Pt receiving controlled substance: No Vital Signs: 05/05/25 19:59 05/05/25 22:07 Temperature 98.9 F 98.9 F Temperature Source Oral Oral Pulse Rate 83 Pulse Rate [Right Radial] 98 H Respiratory Rate 16 16 Blood Pressure 112/72 Blood Pressure [Right Arm] 110/89 Blood Pressure Mean [Right Arm] 96 Blood Pressure Position [Right Arm] Supine 02 Sat by Pulse Oximetry 100 Oxygen Delivery Method Room Air Room Air Lab Data Lab Results 05/05/25 20:03: Urine Color Yellow, Urine Appearance Clear, Urine pH 6.0, Ur Specific [place] 1.010, Urine Protein Negative, Urine Glucose (UA) Negative, Urine Ketones Negative, Urine Blood Negative, Urine Nitrate Negative, Urine Bilirubin Negative, Urine Urobilinogen 0.2, Ur Leukocyte Esterase Negative, Urine RBC None, Urine WBC Occasional, Ur Squamous Epith Cells 3-5, Urine Bacteria 1+ 05/05/25 20:08: WBC 11.1, RBC 4.63, Hgb 13.7, Hct 40.8, MCV 88.1, MCH 29.6, MCHC 33.6, RDW 13.6, Plt Count 259, MPV 10.1, Neut % (Auto) 58.0, Lymph % (Auto) 33.2, [place] % (Auto) 6.8, Eos % (Auto) 1.0, Baso % (Auto) 0.6, Neut # (Auto) 6.4, Lymph # (Auto) 3.7, [place] # (Auto) 0.8, Eos # (Auto) 0.1, Baso # (Auto) 0.1, Sodium 138, Potassium 3.7, Chloride 103, Carbon Dioxide 25, Anion Gap 13.7, BUN 6 L, Creatinine 0.90, Estimated Creat Clear 104, Estimated GFR 80, Est GFR ( Amer) 97, Glucose 92, Calcium 9.6, Total Bilirubin 0.6, AST 31, ALT 12, Alkaline Phosphatase 51, Total Protein 8.0, Albumin 5.1 H, Globulin 2.9, Albumin/Globulin Ratio 1.8, HCG, Quant 9932 H 05/05/25 20:08 05/05/25 20:08 Orders (Tests/Meds): ORDERS Category Date Time Status POCUS Point of Care (ER Only) Stat Exams 05/05/25 20:03 Completed Beta HCG, Quant [HCG,Quantitative] Stat Lab 05/05/25 20:08 Completed CBC w/Auto Diff [Complete Blood Count Auto Diff] Stat Lab 05/05/25 20:08 Completed CMP [Comprehensive Metabolic Panel] Stat Lab 05/05/25 20:08 Completed Urinalysis and Microscopic Stat Lab 05/05/25 20:03 Completed US OB transvaginal Stat Ultrasound 05/05/25 20:35 Taken Medical Decision Narrative: In summary, patient is a 20-year-old female with no significant past medical history who presents to the ED stating that she is approximately 4 to 8 weeks , has not seen OB yet, is having left lower quadrant and suprapubic abdominal pain over the past 2 days. She denies any vaginal bleeding and dysuria. This is her first . She denies any additional complaints. Denies fever, chills, body aches, chest pain, shortness of breath. Upon initial evaluation patient is alert, oriented and cooperative. She is hemodynamically stable. Physical exam is remarkable for suprapubic and left lower quadrant abdominal tenderness. Differential diagnosis include , miscarriage, ectopic , UTI, STI, among others. CBC unremarkable for any leukocytosis, stable H&H. Urinalysis unremarkable for any infectious process. hCG quant 9932. On 04/28/2025 hCG was 647. POCUS performed at bedside by attending. Ordered a formal ultrasound as we were unable to see a yolk sac on the bedside ultrasound. Attending had a discussion with OB on-call, she states she will see the patient in the office Thursday. Confirmed IUP but concerning ovarian cyst. Attending had a discussion with patient, she verbalized understanding of instructions. She will follow-up with OB. She verbalized understanding of return precautions. <Kelsi Lu MD - Last Filed: 05/05/25 22:24> Vital Signs: 05/05/25 19:59 05/05/25 22:07 Temperature 98.9 F 98.9 F Temperature Source Oral Oral Pulse Rate 83 Pulse Rate [Right Radial] 98 H Respiratory Rate 16 16 Blood Pressure 112/72 Blood Pressure [Right Arm] 110/89 Blood Pressure Mean [Right Arm] 96 Blood Pressure Position [Right Arm] Supine 02 Sat by Pulse Oximetry 100 Oxygen Delivery Method Room Air Room Air Lab Data Lab results reviewed: Yes I reviewed the patient's lab results. Lab Results 05/05/25 20:03: Urine Color Yellow, Urine Appearance Clear, Urine pH 6.0, Ur Specific Lane [place] 1.010, Urine Protein Negative, Urine Glucose (UA) Negative, Urine Ketones Negative, Urine Blood Negative, Urine Nitrate Negative, Urine Bilirubin Negative, Urine Urobilinogen 0.2, Ur Leukocyte Esterase Negative, Urine RBC None, Urine WBC Occasional, Ur Squamous Epith Cells 3-5, Urine Bacteria 1+ 05/05/25 20:08: WBC 11.1, RBC 4.63, Hgb 13.7, Hct 40.8, MCV 88.1, MCH 29.6, MCHC 33.6, RDW 13.6, Plt Count 259, MPV 10.1, Neut % (Auto) 58.0, Lymph % (Auto) 33.2, [place] % (Auto) 6.8, Eos % (Auto) 1.0, Baso % (Auto) 0.6, Neut # (Auto) 6.4, Lymph # (Auto) 3.7, [place] # (Auto) 0.8, Eos # (Auto) 0.1, Baso # (Auto) 0.1, Sodium 138, Potassium 3.7, Chloride 103, Carbon Dioxide 25, Anion Gap 13.7, BUN 6 L, Creatinine 0.90, Estimated Creat Clear 104, Estimated GFR 80, Est GFR ( Amer) 97, Glucose 92, Calcium 9.6, Total Bilirubin 0.6, AST 31, ALT 12, Alkaline Phosphatase 51, Total Protein 8.0, Albumin 5.1 H, Globulin 2.9, Albumin/Globulin Ratio 1.8, HCG, Quant 9932 H Orders (Tests/Meds): ORDERS Category Date Time Status POCUS Point of Care (ER Only) Stat Exams 05/05/25 20:03 Completed Beta HCG, Quant [HCG,Quantitative] Stat Lab 05/05/25 20:08 Completed CBC w/Auto Diff [Complete Blood Count Auto Diff] Stat Lab 05/05/25 20:08 Completed CMP [Comprehensive Metabolic Panel] Stat Lab 05/05/25 20:08 Completed Urinalysis and Microscopic Stat Lab 05/05/25 20:03 Completed US OB transvaginal Stat Ultrasound 05/05/25 20:35 Taken Medical Decision Narrative: In summary, patient is a 20-year-old female with no significant past medical history who presents to the ED stating that she is approximately 4 to 8 weeks , has not seen OB yet, is having left lower quadrant and suprapubic abdominal pain over the past 2 days. She denies any vaginal bleeding and dysuria. This is her first . She denies any additional complaints. Denies fever, chills, body aches, chest pain, shortness of breath. Upon initial evaluation patient is alert, oriented and cooperative. She is hemodynamically stable. Physical exam is remarkable for suprapubic and left lower quadrant abdominal tenderness. Differential diagnosis include , miscarriage, ectopic , UTI, STI, among others. CBC unremarkable for any leukocytosis, stable H&H. Urinalysis unremarkable for any infectious process. hCG quant 9932. On 04/28/2025 hCG was 647. POCUS performed at bedside by attending. Ordered a formal ultrasound as we were unable to see a yolk sac on the bedside ultrasound. Attending had a discussion with OB on-call, she states she will see the patient in the office Thursday. Confirmed IUP but concerning ovarian cyst. Attending had a discussion with patient, she verbalized understanding of instructions. She will follow-up with OB. She verbalized understanding of return precautions. This is Dr. Lu I performed a bedside ultrasound which showed a gestational sac no obvious pole or yolk sac. Therefore transvaginal ultrasound was ordered there was a gestational sac noted with an obvious pole consistent with confirmed intrauterine . Quantitative beta-hCG was 9932. However there was a large cystic structure with a ring of fire on the right adnexal area that would have been concerning for a ectopic most likely a corpus luteal cyst however cannot rule out heterotopic . This patient is not on any ovarian stimulation medications or treatments so this is an incredibly unlikely diagnosis. I spoke with Dr. Hector and we agree this is most likely a corpus luteal cyst and she will follow-up closely in clinic on Thursday. Patient will call Dr. Hector also spoke with her staff via the patient's chart to make sure that she can be overbooked. Patient will return with significant worsening of her symptoms. Abdominal exams were benign on serial assessments for me regarding other pathology today. Procedures <Kelsi Lu MD - Last Filed: 05/05/25 22:24> Miscellaneous Procedure Procedure Performed: Limited OB ultrasound Indication: Positive home test abdominal pain Identified structures: Uterus right and left adnexa pouch of Freddy Findings: Uterus: No definitive IUP there is a gestational sac 5 to 6 weeks without obvious pole or yolk sac Right adnexa: No free fluid Left adnexa: No free fluid Cul de sac: No free fluid Impression: Gestational sac noted within the uterus but no obvious pole or yolk sac cannot rule in intrauterine or rule out ectopic will need transvaginal ultrasound for further evaluation Images were saved to permanent archive The study was technically adequate CPT Transabdominal: 96154-82 This study was performed by me, and I personally interpreted all images/videos. Based on my clinical judgement, these images were adequate and did not necessitate further imaging. Critical Care <Sylvia Ocampo APRN - Last Filed: 05/05/25 22:01> Critical Care Time Critical Care Time: No
--- OUTSIDE RECORDS SUMMARY | 2025-05-05 20:00 | XMS_ITS | Clinical Summary ---
Author Organization [facility] Address [address] [place] [address] Phone Care Team Providers Care Auto [employer] Travel Counselor Name Role Phone Kuldeep Harris MD Primary Care Provider [phone] Allergies No known active allergies Medications LEVOthyroxine [...] 2005 HPV Completed 10/19/2017, 03/21, 02/20/2016 Insurance [facility] [address] Care Teams Auto Club Travel Counselor Relationship Specialty Start Date End Date Kuldeep Harris MD [address] [place] [id number] PCP - General Internal Medicine-Adolescent Medicine 12/15/23
--- OUTSIDE RECORDS SUMMARY | 2025-05-05 20:00 | XMS_ITS | Patient Health Record ---
Author Organization [facility] Address [address] [place] [address] Care Team Providers Care Table Top Tile Setter Name Role Phone Kuldeep Harris Primary Care Provider [phone] Dorothy Kaplan Unavailable [phone] Dorothy Covington Unavailable [phone] Migration, Provider Unavailable Unavailable Allergies No Known Allergies Results Component Value Reference Range Notes TEST AUTHORIZATION Reviewed date:10/24/2024 08:52:59 PM Interpretation: Performing Lab:[facility]AI[facility], Laurie [place] [address] [place] [facility] CenterJamdBN[address] Kevin Willoughby Notes/Report: NON-FASTING; NON-FASTING; NON-FASTING TEST NAME: PROLACTIN TEST CODE: [id number] CLIENT CONTACT: JOSE MIGUEL VERA REPORT ALWAYS MESSAGE SIGNATURE The laboratory testing on this patient was verbally requested or confirmed by the ordering physician or his or her authorized field representative after contact with an employee of [employer] [facility] Federal regulations require that we maintain on file written authorization for all laboratory testing. Accordingly we are asking that the ordering physician or his or her authorized field representative sign a copy of this report and promptly return it to the client evaluator. Signature: COMMENT Please fax this signed form to [phone]. Please do not attempt to return this document by other methods. Documents will not be viewed by a field representative. Please do not use this fax number for other service requests. PROLACTIN (746) Reviewed date:10/25/2024 02:26:12 PM Interpretation: Performing Lab:[facility] [id number], OrgenesisRjpgEZ[address] Kevin Willoughby Notes/Report: NON-FASTING; NON-FASTING; NON-FASTING PROLACTIN 7.1 Reference Range Females Non- 3.0-30.0 10.0-209.0 Postmenopausal 2.0-20.0 Ultrasound : Renal, bilatera l Reviewed date:11/07/2024 02:45:13 PM Interpretation: Performing Lab: Notes/Report: COMPREHENSIVE METABOLIC PANE L (84612) Reviewed date:10/24/2024 12:39:18 PM Interpretation: Performing Lab:[facility] [facility] [address], Community CashVqtnOH[address] Kevin Willoughby Notes/Report: NON-FASTING; NON-FASTING; NON-FASTING GLUCOSE [...] ALT 13 5-32 U/L BASIC METABOLIC PANEL (14817 ) Reviewed date:12/06/2024 03:09:40 PM Interpretation: Performing Lab:CLAIRE [facility] [facility] [id number], [facility] CenterXgplWA[address] Kevin Willoughby Notes/Report: NON-FASTING; NON-FASTING GLUCOSE 98 65-99 mg/dL Fasting reference interval UREA NITROGEN (BUN) 10 7-20 mg/dL CREATININE 0.98 0.50-0.96 mg/dL EGFR 85 > OR = 60 mL/min/1.73m2 BUN/CREATININE RATIO 10 6-22 (calc) SODIUM 140 135-146 mmol/L POTASSIUM 4.4 3.8-5.1 mmol/L CHLORIDE 106 98-110 mmol/L CARBON DIOXIDE 26 20-32 mmol/L CALCIUM 9.4 8.9-10.4 mg/dL CBC (INCLUDES DIFF/PLT) (639 9) Reviewed date:10/24/2024 12:39:18 PM Interpretation: Performing Lab:[facility]RE [facility] [facility] [address] QxdfLQ[address] Kevin Willoughby Notes/Report: NON-FASTING; NON-FASTING; NON-FASTING WHITE [...] MPV 10.9 7.5-12.5 fL ABSOLUTE NEUTROPHILS 4070 9974-6805 cells/uL ABSOLUTE LYMPHOCYTES 2634 850-3900 cells/uL ABSOLUTE MONOCYTES 481 200-950 cells/uL ABSOLUTE EOSINOPHILS 148 15-500 cells/uL ABSOLUTE BASOPHILS 67 0-200 cells/uL NEUTROPHILS 55 LYMPHOCYTES 35.6 MONOCYTES 6.5 EOSINOPHILS 2.0 BASOPHILS 0.9 TSH W/REFLEX TO FT4 (41671) Reviewed date:10/24/2024 12:39:18 PM Interpretation: Performing Lab:[id number], [place] GczxEB[address] Kevin Willoughby Notes/Report: NON-FASTING; NON-FASTING; NON-FASTING NON-FASTING; NON-FASTING; NON-FASTING TSH W/REFLEX TO FT4 >150.00 Reference Range 1-19 Years 0.50-4.30 Ranges First trimester 0.26-2.66 Second trimester 0.55-2.73 Third trimester 0.43-2.91 T4, FREE 1.5 0.8-1.4 ng/dL TSH W/REFLEX TO FT4 (44828) Reviewed date:12/06/2024 03:09:40 PM Interpretation: Performing Lab:CLAIRE [facility] [id number], [place] LzeiUH[address] Kevin Willoughby Notes/Report: NON-FASTING; NON-FASTING TSH W/REFLEX TO FT4 0.76 Reference Range 1-19 Years 0.50-4.30 Ranges First trimester 0.26-2.66 Second trimester 0.55-2.73 Third trimester 0.43-2.91 TSH W/REFLEX TO FT4 (98563) Reviewed date:03/07/2025 11:22:12 AM Interpretation: Performing Lab:[facility] [address], [facility] CenterSqlrAX[address] Kevin Willoughby Notes/Report: NON-FASTING TSH W/REFLEX TO FT4 1.97 Reference Range > or = 20 Years 0.40-4.50 Ranges First trimester 0.26-2.66 Second trimester 0.55-2.73 Third trimester 0.43-2.91 HCG, TOTAL, QN (8396) Reviewed date:03/21/2025 02:16:56 PM Interpretation: Performing Lab:CLAIRE [facility] [facility] [address], [place] ZbbnXU[address] Kevin Willoughby Notes/Report: NON-FASTING HCG, TOTAL, QN <5 Reference Range Non or premenopausal <5 Postmenopausal <10 Values from different assay methods may vary. The use of this assay to monitor or to diagnose patients with cancer or any condition unrelated to has not been cleared or approved by the FDA or the harvest worker fruit of the assay. BASIC METABOLIC PANEL (22638 ) Reviewed date:01/25/2025 04:41:42 PM Interpretation: Performing Lab:CLAIRE, [facility] [address], OrgenesisTuxuEQ[address] Kevin Willoughby Notes/Report: NON-FASTING; NON-FASTING GLUCOSE 58 [...] 9.3 8.6-10.2 mg/dL TSH W/REFLEX TO FT4 (22179) Reviewed date:01/26/2025 07:53:01 AM Interpretation: Performing Lab:CLAIRE [facility] [address], OrgenesisYdiaKV[address] Kevin Willoughby Notes/Report: NON-FASTING; NON-FASTING NON-FASTING; NON-FASTING TSH W/REFLEX TO FT4 >150.00 Reference Range > or = 20 Years 0.40-4.50 Ranges First trimester 0.26-2.66 Second trimester 0.55-2.73 Third trimester 0.43-2.91 T4, FREE 1.1 0.8-1.4 ng/dL Medications Medication SIG (Take, Route, Frequency, Duration) Notes Start Date End Date Status Levothyroxine Sodium 150 MCG 1 tab(s) or ally once a day; Duration: 30 days Active Cephalexin 500 MG 1 capsule Orally 3 t imes a day; Duration: 7 days 03/20/2025 Active Immunizations Vaccine Route Administration Date Status Comme nts Varivax (Varicella) [facility] Subcutaneous 11/10/2014 Adminis tered Fluvirin--Influenza vaccine 3+ year IM Intramuscular 06/21/2013 Administered Social History Tobacco Use: Social History Observation Description Date Details (start date - stop date) Current Smoker NA - NA Smoking: Question Answer Notes Are you a: current every day smoker Section Notes: Vapes Vapes Lives with PGM who has [...] Status Risk Notes Problem Generalized abdominal pain (495482688) Generalized abdominal pain (R10.84) Active confirmed Problem Nausea (323866554) Nausea (R11.0) Active confir med Problem Gastroesophageal reflux disease (012477410) GERD (gastroesophageal reflux disease) (K21.9) Active confirmed Problem Anxiety (33450656) Anxiety (F41.9) Active confi rmed Problem Seasonal allergic rhinitis (667967483) Seasonal allergic rhinitis (J30.2) Active confirmed Problem Sleep disturbance (35409903) Sleep disturbance (G47.9) Active confirmed Problem Chronic pain (75109205) Other chronic pain (G89.29) Active confirmed Problem Goiter (2771118) Goiter (E04.9) Active confirme d Problem Acquired hypothyroidism (837407978) Acquired hypothyroidism (E03.9) Active confirmed Problem Mood disorder (09430461) Mood disorder (F39) Active confirmed Problem Irregular menstrual bleeding (98773952) Irregular menstrual bleeding (N92.6) Active confirmed Problem Periumbilical abdominal pain (346488615) Periumbilical abdominal pain (R10.33) Active confirmed Problem Hypothyroidism (55215915) Hypothyroidism, unspecified type (E03.9) Active confirmed Problem Overweight (878713750) Pediatric overweight (E66.3) Active confirmed Problem 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) Abnormal involuntary movement (R25.9) Active confirmed Problem Dysphagia (10762921) Dysphagia, unspecified type (R13.10) Active confirmed Problem Deformity of chest wall (061444823) Chest wall asymmetry (Q67.8) Active confirmed Problem Vomiting (598040439) Recurrent vomiting (R11.10) Active confirmed Problem Constipation (14648909) Unspecified constipation (K59.00) Active confirmed Problem Autoimmune hypothyroidism (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) 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 Problem History of gastrointestinal disease (328601566) History of gastroesophageal reflux (GERD) (Z87.19) Active confirmed Problem Missed period (77708551) Missed period (N92.6) Active confirmed Problem Diffuse goiter (273637541) Goiter diffuse (E04.9) Active confirmed Problem History of attempted suicide (787030840) History of attempted suicide (Z91.5) Active confirmed Vital Signs Heart Rate 84 /min 03/20/2025 Temperature 97.5 degrees Fahrenheit 03/20/2025 Blood pressure diastolic 78 mm Hg 03/20/2025 Height 63.25 in 03/20/2025 Blood pressure systolic 108 mm Hg 03/20/2025 Weight 137.2 lbs 03/20/2025 BMI 24.11 kg/m2 03/20/2025 Encounters Encounter Location Date Provider Diagnosis [facility] [address] [place] [address] 12/24/2024 Provider Migration [facility] [address] [place] [address] 10/20/2024 Dorothy Kaplan Hypothyroidism, unspecified type E03.9 ; Elevated serum creatinine R79.89 and Non-compliant patient Z91.199 [facility] [address] [facility] [address] [place] [address] 12/01/2024 Dorothy Kaplan Hypothyroidism, unspecified type E03.9 and Elevated serum creatinine R79.89 [facility] [address] [facility] [address] [place] [address] 01/24/2025 Dorothy Kaplan Elevated serum creatinine R79.89 ; Hypothyroidism, unspecified type E03.9 and Acute left-sided low back pain without sciatica M54.50 [facility] [address] [facility] [address] [place] [address] 03/06/2025 Dorothy Kaplan Hypothyroidism, unspecified type E03.9 [facility] [address] [facility] [address] [place] [address] 03/20/2025 Dorothy Kaplan Skin burn T30.0 ; Cellulitis of right leg L03.115 and Nausea and vomiting, unspecified vomiting type R11.2 [facility] [address] [facility] [address] [place] [address] 05/05/2024 Dorothynicolás MoraRosaura [facility] [address] [facility] [address] [place] [address] 10/28/2024 Dorothy Kaplan Abnormal kidney function N28.9 [facility] [address] [place] [address] 12/06/2024 Dorothy Rosaura [facility] [address] [facility] [address] [place] [address] 03/15/2025 Dorothy Moraence Assessments Encounter Date Diagnosis (ICD Code) Assessment Notes Treatment Notes Treatment Clinical Notes Section Notes 10/20/2024 Elevated serum creatinine (ICD-10 - R79.89) [...] if these labs aren't starting to normalize 03/20/2025 Skin burn (ICD-10 - T30.0) Recommend cleanse with antibacterial soap, gently, pat dry and apply a thin layer of Vaseline or Aquaphor. Follow-up again in 1 week, sooner with any concerns 03/06/2025 Hypothyroidism, unspecified type (ICD-10 - E03.9) repeat labs today, again encouraged compliance 01/24/2025 Elevated serum creatinine (ICD-10 - R79.89) [...] 04/01/2021 Occupational Therapy : Eval & Treatment 02/14/2020 Occupational Therapy : Eval & Treatment 09/16/2019 H-STREP SCREEN (RAPID) 10/14/2011 C-URINE CULTURE 08/25/2012 M-HCG Qualitative,Urine 08/05/2021 M-Serum , B-HCG (Qual) 04/25/20 19 M-COVID PCR SINGLE RAPID 10/22/2020 HCG, TOTAL, QN (8396) 04/14/2023 Insurance Providers Payer Name Payer Address Payer Phone Subscriber Number Group Number Insured Name Patient Relationship to Insured Coverage Start Date Coverage End Date [employer] [facility] [address] [address] [place] [address] [id number] Liz Mota Self - patient is the insured Medical (General) History Medical History History ICD Code Seasonal allergies PE tubes hypothyroidism MDD PTSD Anxiety d/o self cutting Hashimotos' goiter GERD Normal EGD and colonoscopy 06/13 Surgical History Surgery Date(Month/Year) Tonsillectomy 2013 PE tubes 2015 Thyroidectomy 07/2019 left shoulder Hospitalization History Reason Date(Month/Year) pancreatitis-[facility] 10/2023 Thyroidectomy 07/2019
--- OUTSIDE RECORDS SUMMARY | 2025-05-05 20:00 | XMS_ITS | Encounter Summary ---
Author Organization [facility] Address [address] [id number] Care Team Providers Care Rubber Insulator Name Role Phone Con Maloneyen Champ MORALES Primary Care Provider [phone] Reason for Referral * Consultation (Routine) - Authorized Specialty Diagnoses / Procedures Referred By Denise hernandez Referred To Contact Nephrology Diagnoses Abnormal kidney function Dorothy Kaplan, LINE CLEANER [address] [place] [address] Phone: tel: fax: [facility] Nephrology, Bone & Mineral Metabolism [address] [facility], [address] [place] [address] Phone: tel: fax: Referral ID Status Reason Start Date Expiration Date Visits Requested Visits Authorized [id number] Authorized Specialty Services Required 10/28/2024 04/29/2026 1 1 * Consultation (Routine) - Authorized Specialty Diagnoses / Procedures Referred By Denise hernandez Referred To Contact Endocrinology Diagnoses Acquired hypothyroidism Dorothy Kaplan, LINE CLEANER [address] [address] Phone: tel: fax: [facility] Endocrinology [address] [place] [phone] Phone: tel: fax: Referral ID Status Reason Start Date Expiration Date Visits Requested Visits Authorized [id number] Authorized Specialty Services Required 10/28/2024 04/29/2026 1 1 Encounter Details Date Type Department Care Team (Latest Contact Info) Description 10/28/2024 [facility] Practice [address] [place] [address] Dorothy Kaplan APRN [address] [address] Acquired hypothyroidism (Primary Dx); Abnormal kidney function [...] documented as of this encounter Care Teams Rubber Insulator Relationship Specialty Start Date End Date Katherin Maloney DO [address] [address] PCP - General 02/01/21 documented as of this encounter
[2025-05-05 20:08] LABS: Microscopic, Urine URINE MICROSCOPIC (MICROSCOPIC)
[2025-05-05 20:10] LABS: Bilirubin,Urine Negative (Negative); Color,Urine YELLOW (Yellow); Glucose,Urine (UA) Negative (Negative); Ketones,Urine Negative (Negative); Leukocyte Esterase,Urine Negative (Negative); PH,Urine 6.0 (5.0-8.5); Protein,Urine Negative (Negative); Specific Gravity, Urine 1.010 (1.005-1.030); Urobilinogen,Urine 0.2 EU/dl (0.2)
[2025-05-05 20:15] LABS: Hematocrit 40.8 % (37.0-47.0); Hemoglobin 13.7 g/dL (12.2-16.2); Immature Granulocytes % 0.4 %; Mean Corpuscular HGB Conc 33.6 g/dL (31.8-35.4); Mean Corpuscular Hemoglobin 29.6 pg (27.0-31.2); Mean Corpuscular Volume 88.1 fl (81-99); Nucleated Red Blood Cells % 0 %; Platelet Count 259 K/mm3 (142-424); Red Blood Count 4.63 M/mm3 (4.20-5.40); Red Cell Distribution Width-SD 43.8 fL; White Blood Count 11.1 K/mm3 (4.5-13.0)
[2025-05-05 20:16] LABS: Bacteria,Urine 1+ /lpf; WBC,Urine Occasional #/hpf (0-3)
[2025-05-05 20:31] LABS: Albumin Level 5.1 g/dl (3.5-5.0); Chloride 103 mmol/L (98-107); Potassium 3.7 mmoL/L (3.5-5.1); Sodium 138 mmol/L (136-145)
[2025-05-05 20:33] LABS: Blood Urea Nitrogen 6 mg/dl (7-17); Creatinine Clearance Estimated 104 mL/min (50-200); Creatinine,Serum 0.90 mg/dl (0.52-1.04); Estimated Glomerular Filt Rate 80 ml/min (>60); GFR (African American) 97 ML/MIN (>60)
[2025-05-05 20:34] LABS: Alanine Aminotransferase 12 U/L (12-78); Albumin/Globulin Ratio 1.8 (1.1-1.8); Alkaline Phosphatase 51 U/L (38-126); Anion Gap 13.7 mEq/L (5-15); Aspartate Amino Transferase 31 U/L (14-36); Bilirubin,Total 0.6 mg/dl (0.2-1.3); Calcium 9.6 mg/dl (8.4-10.2); Carbon Dioxide 25 mmol/L (22.0-30.0); Globulin 2.9 g/dL (1.3-3.2); Glucose 92 mg/dl (74-100); Total Protein,Serum 8.0 g/dl (6.3-8.2)
--- NOTE | 2025-05-05 20:35 | US_ITS ---
PROCEDURE INFORMATION: Exam: US , Transvaginal Exam date and time: 05/05/2025 8:57 PM Age: 20 years old Clinical indication: complicated by abdominal or pelvic pain; Right lower quadrant; First trimester (<14 weeks 0 days); Gestational age or lmp: 5w3d by gs-- PT unsure of lmp; ; Additional info: Poss ectopic/ abd pain / elevated quant LABS AND CLINICAL REPORTS: Choriogonadotropin in serum (Serum HCG): 9900 mIU/mL TECHNIQUE: Imaging protocol: Real-time transvaginal obstetrical ultrasound of the maternal pelvis with image documentation. Transvaginal imaging was used for better evaluation of the fetus, adnexa, and/or cervix. COMPARISON: US TRANSVAGINAL 12/23/2024 11:07 PM FINDINGS: Gestation: Intrauterine gestational and yolk sac. Yolk sac measures 2.9 mm. pole not visualized. BIOMETRY: Gestational age (AUA): 5 w 3 d Estimated due date (AUA): 01/02/2026 Mean sac diameter: 0.97 cm. MATERNAL: Right ovary/adnexa: Right ovarian cystic focus with peripheral vascularity measuring 2.2 x 2.0 cm. Right ovary measures 4.22 cm x 2.87 cm x 2.44 cm. Right ovarian volume is 15.47 mL. Left ovary/adnexa: Left ovary measures 2.94 cm x 1.78 cm x 1.52 cm. Left ovarian volume is 4.16 mL. Intraperitoneal space: Small right adnexal region free fluid collection. IMPRESSION: 1. Intrauterine gestational and yolk sacs identified without identifiable pole for estimated gestational age of 5 weeks 3 days. Beta HCG correlation recommended. 2. Likely right ovarian corpus luteal cyst although without identifiable intrauterine pole, ectopic not entirely excluded.
[2025-05-05 22:07] VITALS: BP 112/72; PULSE 83; RESP 16; TEMP 37.2; O2SAT 99
== END 2025-05-05 22:08 | disposition home or self-care (01) ==
PROVIDERS: Nurse Practitioner; Emergency Provider Student in an Organized Health Care Education/Training Program; PCP Internal Medicine Adolescent Medicine
DX: O26.891 Other specified pregnancy related conditions, first trimester (principal); R10.32 Left lower quadrant pain; N83.202 Unspecified ovarian cyst, left side; Z3A.01 Less than 8 weeks gestation of pregnancy
CPT/HCPCS: 76817; 80053; 81001; 84702; 85025; 99284

== ENCOUNTER 2025-05-08 13:17 | Outpatient (CLI) | payer OTHER, SELFPAY ==
--- OUTSIDE RECORDS SUMMARY | 2006-11-09 01:00 | XMS_ITS | Encounter Summary ---
Author Organization [facility] Address [address] [place] [phone] Care Team Providers Care Repossession Agent Name Role Phone Unavailable Primary Care Provider Unavailabl e Encounter Details Date Type Department Care Team (Late st Contact Info) Description 11/09/2006 Hospital Encounter [facility] Division of Cardiology [address] [place] [phone] Social History Tobacco Use Types Packs/Day [...]
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
--- OUTSIDE RECORDS SUMMARY | 2025-05-08 13:21 | XMS_ITS | Encounter Summary ---
Author Organization [facility] Address [address] [id number] Care Team Providers Care Salesperson Florist Supplies Name Role Phone Con Maloneyen Champ MORALES Primary Care Provider [phone]- [phone] Reason for Referral * Consultation (Routine) - Authorized Specialty Diagnoses / Procedures Referred By Denise hernandez Referred To Contact Nephrology Diagnoses Abnormal kidney function Dorothy Kaplan, SUBMARINE CABLE EQUIPMENT TECHNICIAN [address] [place] [address] Phone: tel: fax: [facility] Nephrology, Bone & Mineral Metabolism [address], [address] [place] [address] Phone: tel: fax: Referral ID Status Reason Start Date Expiration Date Visits Requested Visits Authorized [id number] Authorized Specialty Services Required 10/28/2024 04/29/2026 1 1 * Consultation (Routine) - Authorized Specialty Diagnoses / Procedures Referred By Denise hernandez Referred To Contact Endocrinology Diagnoses Acquired hypothyroidism Dorothy Kaplan, SUBMARINE CABLE EQUIPMENT TECHNICIAN [address] [address] Phone: tel: fax: [facility] Endocrinology [address] [place] [phone] Phone: tel: fax: Referral ID Status Reason Start Date Expiration Date Visits Requested Visits Authorized [id number] Authorized Specialty Services Required 10/28/2024 04/29/2026 1 1 Encounter Details Date Type Department Care Team (Latest Contact Info) Description 10/28/2024 [facility] Practice [address] [place] [address] Dorothy Kaplan APRN [address] [address] Acquired hypothyroidism (Primary Dx); Abnormal kidney function [...] documented as of this encounter Care Teams Salesperson Florist Supplies Relationship Specialty Start Date End Date Katherin Maloney DO [address] [address] PCP - General 02/01/21 documented as of this encounter
--- OUTSIDE RECORDS SUMMARY | 2025-05-08 13:21 | XMS_ITS | Clinical Summary ---
Author Organization [facility] Address [address] [place] [address] Phone Care Team Providers Care Finishing Machine Tender Name Role Phone Kuldeep Harris MD Primary Care Provider [phone] Allergies No known active allergies Medications LEVOthyroxine [...] 2005 HPV Completed 10/19/2017, 03/21, 02/20/2016 Insurance [facility] [id number] Care Teams Finishing Machine Tender Relationship Specialty Start Date End Date Kuldeep Harris MD [address] [place] [id number] PCP - General Internal Medicine-Adolescent Medicine 12/15/23
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
--- OUTSIDE RECORDS SUMMARY | 2025-05-08 13:21 | XMS_ITS | Clinical Summary ---
Author Organization Healthcare Address [address] [place] [address] Care Team Providers Care Finisher Cold Rolling Name Role Phone Haider Katherin Champ MORALES Primary Care Provider +1- [phone] Allergies No known active allergies Medications FLUoxetine [...] SDOH Screenings 2023 [facility]-Adult SDOH Screenings 2023 [id number] Vaccine ( season) 2024 [facility]-Influenza Vaccine (#1) [...] patient's age to complete this topic Insurance [facility] MEDICAID [facility] MEDICAID Arturo L[place], [place] [address] [facility] Advance Directives Documents on File Type Date Recorded Patient Medical Office Scheduler Expl anation Power of Quality Control Representative 08/12/2021 POA for An otf Care Teams Finisher Cold Rolling Relationship Specialty Start Date End Date Katherin aMloney DO [address] [facility] [address] [id number] PCP - General 02/01/21
--- OUTSIDE RECORDS SUMMARY | 2025-05-08 13:21 | XMS_ITS | Encounter Summary ---
Author Organization Healthcare Address [address] [place] [address] Care Team Providers Care Mental Health Professional Name Role Phone Katherin Maloney DO Primary Care Provider +1- [phone] Encounter Details Date Type Department Care Team (Late st Contact Info) Description 04/16/2023 Community [facility] [address] [place] [address] Nica Rae DO [address] [place] [address] Chronic abdominal pain (Primary Dx) Social [...] documented as of this encounter Care Teams Mental Health Professional Relationship Specialty Start Date End Date Katherin Maloney DO [address] [place] [address] PCP - General 02/01/21 documented as of this encounter
--- OUTSIDE RECORDS SUMMARY | 2025-05-08 13:21 | XMS_ITS | Clinical Summary ---
Author Organization [facility] Address [address] [place] [address] Care Team Providers Care Plugger Man Name Role Phone Unavailable Primary Care Provider Unavailabl e Source Comments [facility] is fully rolled out with thefollowing exceptions:General Clinical Research [facility] Social History Tobacco Use Types Packs/Day Years [...]
--- NOTE | 2025-05-08 14:00 | US_ITS ---
PROCEDURE: US OB <= 14 WEEKS FETUS CLINICAL INDICATION: heterotopic COMPARISON: US US OB TRANSVAGINAL from 05/05/2025 FINDINGS: Transvaginal sonographic images of the pelvis were obtained. Her last menstrual period is unknown. The uterus is retroverted. An intrauterine gestational sac is present with a pole with a crown-rump length of 0.22cm This correlates to a gestational age of 5weeks 6days. heart tones are not yet seen. Yolk sac is noted. The yolk sac measures 4.0mm. The right ovary is seen and appears normal. The right ovary contains a likely corpus luteum. It has a hypervascular ring but is within the ovary. The left ovary is seen and appears normal. There is a small amount of free fluid in the cul-de-sac and surrounding the uterus. IMPRESSION: 1. The uterus is retroverted. There is a gestational sac within the uterine cavity along with a yolk sac. 2. A pole is seen but heart rate activity is not yet apparent. 3. Within the right ovary there appears to be a corpus luteum with a hypervascular rim. Left ovary appears normal. 4. There fluid in the cul-de-sac along with fluid surrounding the uterus. 5. Suggest follow-up in a 3-4 days to confirm viability. Dictated by: Rahul Whitehead MD 05/09/2025 06:08 Rahul Whitehead MD in OV 05/09/2025 06:08
== END 2025-05-08 23:59 | disposition home or self-care (01) ==
LOC: RAD 13:18
PROVIDERS: PCP Internal Medicine Adolescent Medicine; Visit Provider Obstetrics & Gynecology
DX: O34.531 Maternal care for retroversion of gravid uterus, first trimester (principal); O28.3 Abnormal ultrasonic finding on antenatal screening of mother; O34.81 Maternal care for other abnormalities of pelvic organs, first trimester; O36.80X0 Pregnancy with inconclusive fetal viability, not applicable or unspecified; O26.899 Other specified pregnancy related conditions, unspecified trimester; N83.11 Corpus luteum cyst of right ovary; R10.9 Unspecified abdominal pain; Z3A.01 Less than 8 weeks gestation of pregnancy
CPT/HCPCS: 36415; 76801; 84702

== ENCOUNTER 2025-05-13 14:39 | Emergency (ER) | payer OTHER, SELFPAY ==
--- OUTSIDE RECORDS SUMMARY | 2006-11-09 01:00 | XMS_ITS | Encounter Summary ---
Author Organization [facility] Address [address] [place] [address] Care Team Providers Care Rn Digestive Name Role Phone Unavailable Primary Care Provider Unavailabl e Encounter Details Date Type Department Care Team (Late st Contact Info) Description 11/09/2006 Hospital Encounter [facility] Division of Cardiology [address] [place] [phone] Social History Tobacco Use Types Packs/Day [...]
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
[2025-05-13 15:09] VITALS: BP 115/53; BP 121/76; PULSE 70; PULSE 83; RESP 15; TEMP 37; O2SAT 100; BMI 24.4
--- OUTSIDE RECORDS SUMMARY | 2025-05-13 15:11 | XMS_ITS | Clinical Summary ---
Author Organization Healthcare Address [address] [place] [address] Care Team Providers Care Laundry Worker Name Role Phone Haider Katherin Champ MORALES Primary Care Provider +1- [phone] Allergies No known active allergies Medications FLUoxetine [...] SDOH Screenings 2023 [facility]-Adult SDOH Screenings 2023 [id number] Vaccine ( season) 2024 [facility]-Influenza Vaccine (#1) [...] patient's age to complete this topic Insurance [facility] MEDICAID Arturo Lozano, [place] [address] [facility] Advance Directives Documents on File Type Date Recorded Patient Undercover Operator Expl anation Power of Judge 08/12/2021 POA for An otf Care Teams Laundry Worker Relationship Specialty Start Date End Date Katherin Maloney DO [address] [facility] [address] [id number] PCP - General 02/01/21
--- OUTSIDE RECORDS SUMMARY | 2025-05-13 15:11 | XMS_ITS | Encounter Summary ---
Author Organization Healthcare Address [address] [place] [address] Care Team Providers Care Patient Care Provider Name Role Phone Katherin Maloney DO Primary Care Provider +1- [phone] Encounter Details Date Type Department Care Team (Late st Contact Info) Description 04/16/2023 Community [facility] Community Practice [address] [place] [address] Nica Rae DO [address] [place] [address] Chronic abdominal pain (Primary Dx) Social [...] documented as of this encounter Care Teams Patient Care Provider Relationship Specialty Start Date End Date Katherin Maloney DO [address] [place] [address] PCP - General 02/01/21 documented as of this encounter
--- OUTSIDE RECORDS SUMMARY | 2025-05-13 15:11 | XMS_ITS | Encounter Summary ---
Author Organization [facility] Address [address] [place] [id number] Care Team Providers Care Cold Roll Packer Sheet Iron Name Role Phone Katherin Maloney DO Primary Care Provider +1- [phone] Reason for Referral * Consultation (Routine) - Authorized Specialty Diagnoses / Procedures Referred By Denise hernandez Referred To Contact Nephrology Diagnoses Abnormal kidney function Dorothy Kaplan, TEMPLE MEAT CUTTER [address] [place] [address] Phone: tel: fax: [facility] Nephrology, Bone & Mineral Metabolism [address] [facility], [address] [place] [address] Phone: tel: fax: Referral ID Status Reason Start Date Expiration Date Visits Requested Visits Authorized [id number] Authorized Specialty Services Required 10/28/2024 04/29/2026 1 1 * Consultation (Routine) - Authorized Specialty Diagnoses / Procedures Referred By Denise hernandez Referred To Contact Endocrinology Diagnoses Acquired hypothyroidism Dorothy Kaplan, TEMPLE MEAT CUTTER [address] [address] Phone: tel: fax: [facility] Endocrinology [address] [place] [address] Phone: tel: fax: Referral ID Status Reason Start Date Expiration Date Visits Requested Visits Authorized [id number] Authorized Specialty Services Required 10/28/2024 04/29/2026 1 1 Encounter Details Date Type Department Care Team (Latest Contact Info) Description 10/28/2024 [facility] Practice [address] [place] [address] Dorothy Kaplan APRN [address] [address] Acquired hypothyroidism (Primary Dx); Abnormal kidney function [...] documented as of this encounter Care Teams Cold Roll Packer Sheet Iron Relationship Specialty Start Date End Date Katherin Maloney DO [address] [address] PCP - General 02/01/21 documented as of this encounter
--- OUTSIDE RECORDS SUMMARY | 2025-05-13 15:11 | XMS_ITS | Clinical Summary ---
Author Organization [facility] Address [address] [place] [address] Care Team Providers Care Metal Drill Press Operator Name Role Phone Unavailable Primary Care Provider Unavailabl e Source Comments [facility] is fully rolled out with thefollowing exceptions:General Clinical Research [facility] Social History Tobacco Use Types Packs/Day [...] season) 2024 AMB SEASONAL FLU VACCINE (#1) 07/22/2025 HIB IMMUNIZATION Aged Out No longer e [...]
--- OUTSIDE RECORDS SUMMARY | 2025-05-13 15:12 | XMS_ITS | Clinical Summary ---
Author Organization [facility] Address [address] [place] [address] Phone Care Team Providers Care Division Order Technician Name Role Phone Kuldeep Harris MD Primary Care Provider [phone] Allergies No known active allergies Medications LEVOthyroxine [...] 2005 HPV Completed 10/19/2017, 03/21, 02/20/2016 Insurance [facility] [address] Care Teams Division Order Technician Relationship Specialty Start Date End Date Kuldeep Harris MD [address] [place] [id number] PCP - General Internal Medicine-Adolescent Medicine 12/15/23
--- OUTSIDE RECORDS SUMMARY | 2025-05-13 15:12 | XMS_ITS | Patient Health Record ---
Author Organization [facility] Address [address] [place], [place] [address] Care Team Providers Care Gifted Program Teacher Name Role Phone Kuldeep Harris Primary Care Provider Dorothy Kaplan Unavailable [phone] Dorothy Covington Unavailable [phone] Migration, Provider Unavailable Unavailable Allergies No Known Allergies Results Component Value Reference Range Notes HCG, TOTAL, QN (8396) Reviewed date:03/21/2025 02:16:56 PM Interpretation: Performing Lab:CLAIRE [employer]-EZBOB [id number] [employer] MariamRidgeview Sibley Medical CenterBhhrIW[address] Kevin Willoughby Notes/Report: NON-FASTING HCG, TOTAL, QN <5 Reference Range Non or premenopausal <5 Postmenopausal <10 Values from different assay methods may vary. The use of this assay to monitor or to diagnose patients with cancer or any condition unrelated to has not been cleared or approved by the FDA or the cow tester of the assay. TSH W/REFLEX TO FT4 (92784) Reviewed date:03/07/2025 11:22:12 AM Interpretation: Performing Lab:CLAIRE ecoVente1355 [address] Parentlisbeth [facility] HospitalQxiaCZ[address] Kevin Willoughby Notes/Report: NON-FASTING TSH W/REFLEX TO FT4 1.97 Reference Range > or = 20 Years 0.40-4.50 Ranges First trimester 0.26-2.66 Second trimester 0.55-2.73 Third trimester 0.43-2.91 CBC (INCLUDES DIFF/PLT) (639 9) Reviewed date:10/24/2024 12:39:18 PM Interpretation: Performing Lab:CLAIRE [employer]-EZBOB [id number] N[employer] TechnologyRidgeview Sibley Medical CenterIjavPR[address] Kevin Willoughby Notes/Report: NON-FASTING; NON-FASTING; NON-FASTING WHITE [...] MPV 10.9 7.5-12.5 fL ABSOLUTE NEUTROPHILS 4070 [phone] cells/uL ABSOLUTE LYMPHOCYTES 2634 850-3900 cells/uL ABSOLUTE MONOCYTES 481 200-950 cells/uL ABSOLUTE EOSINOPHILS 148 15-500 cells/uL ABSOLUTE BASOPHILS 67 0-200 cells/uL NEUTROPHILS 55 LYMPHOCYTES 35.6 MONOCYTES 6.5 EOSINOPHILS 2.0 BASOPHILS 0.9 BASIC METABOLIC PANEL (78900 ) Reviewed date:12/06/2024 03:09:40 PM Interpretation: Performing Lab:CLAIRE [employer]-[place] Slsy7411 [employer], [facility] ClinicYmntXR[address] Kevin Willoughby Notes/Report: NON-FASTING; NON-FASTING GLUCOSE 98 65-99 mg/dL Fasting reference interval UREA NITROGEN (BUN) 10 7-20 mg/dL CREATININE 0.98 0.50-0.96 mg/dL EGFR 85 > OR = 60 mL/min/1.73m2 BUN/CREATININE RATIO 10 6-22 (calc) SODIUM 140 135-146 mmol/L POTASSIUM 4.4 3.8-5.1 mmol/L CHLORIDE 106 98-110 mmol/L CARBON DIOXIDE 26 20-32 mmol/L CALCIUM 9.4 8.9-10.4 mg/dL COMPREHENSIVE METABOLIC PANE L (23517) Reviewed date:10/24/2024 12:39:18 PM Interpretation: Performing Lab:CLAIRE dentaZOOM [id number] [facility] Kevin Willoughby Notes/Report: NON-FASTING; NON-FASTING; NON-FASTING GLUCOSE [...] ALT 13 5-32 U/L BASIC METABOLIC PANEL (75522 ) Reviewed date:01/25/2025 04:41:42 PM Interpretation: Performing Lab:CLAIRE [facility] ArtWoodwinds Health Campuse1355 [employer] [facility], [facility] ClinicOycrOZ[address] Kevin Willoughby Notes/Report: NON-FASTING; NON-FASTING GLUCOSE 58 [...] 29 20-32 mmol/L CALCIUM 9.3 8.6-10.2 mg/dL PROLACTIN (746) Reviewed date:10/25/2024 02:26:12 PM Interpretation: Performing Lab:CLAIRE [employer]-Quad/Graphicse1355 [employer] [place], [facility] ClinicHvjfLI[address] Kevin Willoughby Notes/Report: NON-FASTING; NON-FASTING; NON-FASTING PROLACTIN 7.1 Reference Range Females Non- 3.0-30.0 10.0-209.0 Postmenopausal 2.0-20.0 TSH W/REFLEX TO FT4 (90695) Reviewed date:12/06/2024 03:09:40 PM Interpretation: Performing Lab:CLAIRE [employer]-Quad/Graphicse1355 [employer] [place], [place] RbzwDK[address] Kevin Willoughby Notes/Report: NON-FASTING; NON-FASTING TSH W/REFLEX TO FT4 0.76 Reference Range 1-19 Years 0.50-4.30 Ranges First trimester 0.26-2.66 Second trimester 0.55-2.73 Third trimester 0.43-2.91 TSH W/REFLEX TO FT4 (90291) Reviewed date:10/24/2024 12:39:18 PM Interpretation: Performing Lab:CLAIRE [employer]-Quad/Graphicse1355 [employer] SoftwareteGramov[employer], [facility] ClinicCfmiXT[address] Keivn Willoughby Notes/Report: NON-FASTING; NON-FASTING; NON-FASTING NON-FASTING; NON-FASTING; NON-FASTING TSH W/REFLEX TO FT4 >150.00 Reference Range 1-19 Years 0.50-4.30 Ranges First trimester 0.26-2.66 Second trimester 0.55-2.73 Third trimester 0.43-2.91 T4, FREE 1.5 0.8-1.4 ng/dL TSH W/REFLEX TO FT4 (98259) Reviewed date:01/26/2025 07:53:01 AM Interpretation: Performing Lab:CLAIRE ecoVente1355 [employer] [place], [place] NdpyQJ[address] Kevin Willoughby Notes/Report: NON-FASTING; NON-FASTING NON-FASTING; NON-FASTING TSH W/REFLEX TO FT4 >150.00 Reference Range > or = 20 Years 0.40-4.50 Ranges First trimester 0.26-2.66 Second trimester 0.55-2.73 Third trimester 0.43-2.91 T4, FREE 1.1 0.8-1.4 ng/dL TEST AUTHORIZATION Reviewed date:10/24/2024 08:52:59 PM Interpretation: Performing Lab:CLAIRE, Laurie Puente-[place] [address], [place] HaleyVparTL[address] Kevin Daniel Willoughby Notes/Report: NON-FASTING; NON-FASTING; NON-FASTING TEST NAME: PROLACTIN TEST CODE: [id number] CLIENT CONTACT: JOSE MIGUEL ANATOLYSTEFANIEJossie REPORT ALWAYS MESSAGE SIGNATURE The laboratory testing on this patient was verbally requested or confirmed by the ordering physician or his or her authorized pharmaceutical service representative after contact with an employee of [employer]. Federal regulations require that we maintain on file written authorization for all laboratory testing. Accordingly we are asking that the ordering physician or his or her authorized pharmaceutical service representative sign a copy of this report and promptly return it to the client service associate. Signature: COMMENT Please fax this signed form to [phone]. Please do not attempt to return this document by other methods. Documents will not be viewed by a pharmaceutical service representative. Please do not use this fax number for other service requests. Ultrasound : Renal, bilatera l Reviewed date:11/07/2024 02:45:13 PM Interpretation: Performing Lab: Notes/Report: Medications Medication SIG (Take, Route, Frequency, Duration) Notes Start Date End Date Status Levothyroxine Sodium 150 MCG 1 tab(s) or ally once a day; Duration: 30 days Active Cephalexin 500 MG 1 capsule Orally 3 t imes a day; Duration: 7 days 03/20/2025 Active Immunizations Vaccine Route Administration Date Status Comme nts Varivax (Varicella) VF SC Subcutaneous 11/10/2014 Adminis tered Fluvirin--Influenza vaccine [...] Status Risk Notes Problem Generalized abdominal pain (084972548) Generalized abdominal pain (R10.84) Active confirmed Problem Nausea (818331497) Nausea (R11.0) Active confir med Problem Gastroesophageal reflux disease (951770925) GERD (gastroesophageal reflux disease) (K21.9) Active confirmed Problem Anxiety (82322212) Anxiety (F41.9) Active confi rmed Problem Seasonal allergic rhinitis (191564301) Seasonal allergic rhinitis (J30.2) Active confirmed Problem Sleep disturbance (56280858) Sleep disturbance (G47.9) Active confirmed Problem Chronic pain (78900845) Other chronic pain (G89.29) Active confirmed Problem Goiter (9825786) Goiter (E04.9) Active confirme d Problem Acquired hypothyroidism (776599997) Acquired hypothyroidism (E03.9) Active confirmed Problem Mood disorder (94203607) Mood disorder (F39) Active confirmed Problem Irregular menstrual bleeding (06965941) Irregular menstrual bleeding (N92.6) Active confirmed Problem Periumbilical abdominal pain (914998860) Periumbilical abdominal pain (R10.33) Active confirmed Problem Hypothyroidism (12068675) Hypothyroidism, unspecified type (E03.9) Active confirmed Problem Overweight (239014603) Pediatric overweight (E66.3) Active confirmed Problem 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) Abnormal involuntary movement (R25.9) Active confirmed Problem Dysphagia (51554254) Dysphagia, unspecified type (R13.10) Active confirmed Problem Deformity of chest wall (706297677) Chest wall asymmetry (Q67.8) Active confirmed Problem Vomiting (329317920) Recurrent vomiting (R11.10) Active confirmed Problem Constipation (53519341) Unspecified constipation (K59.00) Active confirmed Problem Autoimmune hypothyroidism (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) 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 Problem History of gastrointestinal disease (151693890) History of gastroesophageal reflux (GERD) (Z87.19) Active confirmed Problem Missed period (40788413) Missed period (N92.6) Active confirmed Problem Diffuse goiter (223693454) Goiter diffuse (E04.9) Active confirmed Problem History of attempted suicide (412394555) History of attempted suicide (Z91.5) Active confirmed Vital Signs Heart Rate 84 /min 03/20/2025 Temperature 97.5 degrees Fahrenheit 03/20/2025 Blood pressure diastolic 78 mm Hg 03/20/2025 Height 63.25 in 03/20/2025 Blood pressure systolic 108 mm Hg 03/20/2025 Weight 137.2 lbs 03/20/2025 BMI 24.11 kg/m2 03/20/2025 Encounters Encounter Location Date Provider Diagnosis [facility] [address] [place], [place] [address] 12/24/2024 Provider Migration [facility] [address] [facility] [address] [place], [place] [address] 10/20/2024 Dorothy Moraence Hypothyroidism, unspecified type E03.9 ; Elevated serum creatinine R79.89 and Non-compliant patient Z91.199 [facility] [address] [facility] [address] [place], [place] [address] 12/01/2024 [facility] Hypothyroidism, unspecified type E03.9 and Elevated serum creatinine R79.89 [facility] [address] [facility] [address] [place], [place] [address] 01/24/2025 Dorothy Rosaura Elevated serum creatinine R79.89 ; Hypothyroidism, unspecified type E03.9 and Acute left-sided low back pain without sciatica M54.50 [facility] [address] [facility] [address] [place], [place] [address] 03/06/2025 [facility] Hypothyroidism, unspecified type E03.9 [facility] [address] [facility] [address] [place] [address] 03/20/2025 [facility] Skin burn T30.0 ; Cellulitis of right leg L03.115 and Nausea and vomiting, unspecified vomiting type R11.2 [facility] [address] [facility] [address] [place] [address] 10/28/2024 [facility] Abnormal kidney function N28.9 [facility] [address] [facility] [address] [place] [address] 12/06/2024 [facility] [address] [facility] [address] [place] [address] 03/15/2025 Dorothy Rosaura Assessments Encounter Date Diagnosis (ICD Code) Assessment Notes Treatment Notes Treatment Clinical Notes Section Notes 03/20/2025 Skin burn (ICD-10 - T30.0) Recommend cleanse with antibacterial soap, gently, pat dry and apply a thin layer of Vaseline or Aquaphor. Follow-up again in 1 week, sooner with any concerns 10/28/2024 Abnormal kidney function (ICD-10 - N28.9) 03/20/2025 Cellulitis of right leg (ICD-10 - L03.115) 12/01/2024 Elevated serum creatinine (ICD-10 - R79.89) [...] E03.9) repeat labs today, again encouraged compliance 10/20/2024 Elevated serum creatinine (ICD-10 - R79.89) [...] likely to be compliant with that either. 10/20/2024 Non-compliant patient (ICD-10 - Z91.199) 01/24/2025 Acute left-sided low back pain without sciatica (ICD-10 - M54.50) suspect SI strain and some muscle spasm. reminded not to take NSAID but may use APAP as needed, ice. 03/20/2025 Nausea and vomiting, unspecified vomiting type (ICD-10 - R11.2) Plan Of Treatment Pending Test Test Name [...] Coverage Start Date Coverage End Date [employer] [facility] [address] [address] [place] [address] [id number] Liz Mota Self - patient is the insured Medical (General) History Medical History History ICD Code Seasonal allergies PE tubes hypothyroidism MDD PTSD Anxiety d/o self cutting Hashimotos' goiter GERD Normal EGD and colonoscopy 06/13 Surgical History Surgery Date(Month/Year) Tonsillectomy 2013 PE tubes 2015 Thyroidectomy 07/2019 left shoulder Hospitalization History Reason Date(Month/Year) pancreatitis-H 10/2023 Thyroidectomy 07/2019
--- NOTE | 2025-05-13 15:28 | ED_ITS ---
<Statement entered by Holden Magana MD - 05/13/25 17:37> I was consulted by the KRAIG, and we discussed the complexity of the problems being addressed. I approve the treatment and management plan for this patient's care in the emergency department, thus performing a substantive portion of the medical decision making. Holden Magana MD Discharge Plan Disposition Patient Disposition: Home, Self-Care Condition: Good Prescriptions Prescriptions: No Action levothyroxine 175 mcg capsule 175 mcg PO DAILY promethazine 12.5 mg tablet 12.5 mg PO Q6H Qty: 30 3RF Referrals Follow up/Referrals: Kuldeep Harris MD [Primary Care Provider, Internal Medicine] - See instructions Activity Restrictions/Add. Instructions Additional Instructions/Restrictions: Please follow-up with your GARAGE DOOR TECHNICIAN in the upcoming days, please utilize Phenergan another antiemetic medication such as vitamin B6 which you can purchase [id number] as needed for your nausea and vomiting. Please return to the emergency department with any worsening signs or symptoms. We will call you with the results of your urine test if results are actionable. Clinical Impressions Clinical Impression: Hyperemesis gravidarum Instructions Patient Instructions: DI for Hyperemesis Gravidarum Print Language Print Language: Chinese Discharge ED Provider: Gabriela Delatorre Adult HPI General Chief complaint: Nausea/Vomiting/Diarrhea Stated complaint: 6.5 weeks preg,cramping,n/v Time Seen by Provider: 05/13/25 15:18 Mode of Arrival: Ambulatory Source of Information: Patient Description of Symptoms (Recalled from ER Triage Doc. by RN): PT IS CURRENTLY 6 WEEKS . EXPERIENCING VOMITING SINCE 3AM. HAS BEEN TO ER RECENTLY AND SEEN BY HER OB. SYMPTOMS CONTINUE History of Present Illness HPI narrative: 20-year-old G2, female at approximately 6 weeks gestation presents the emergency department for nausea and vomiting that has been going on since 3:30 AM this morning, patient [place] any fever chills chest pain shortness of breath, denies any abdominal pain, denies any constipation diarrhea, no urinary type symptomatology, patient denies any vaginal bleeding or vaginal discharge, patient had uncomplicated thus far documented IUP, recent follow-up with OB, recent upcoming appointment with OB as well, been treated for hyperemesis gravidarum with Phenergan, with little to no relief of her symptoms, patient states it knocks me out , and then she states I wake up and have nausea and vomiting again , patient has no other real relevant past medical history with the exception of hypothyroidism after surgical removed to thyroid, patient denies any alcohol tobacco or drug use specifically no marijuana use. Initial triage vitals are unremarkable. Please note that above description of symptoms, in this electronic medical record under categorization of recalled from ER triage doctor by RN are reflective of an initial nursing assessment, however, is not reflective of my full history and physical exam that was personally taken and clarified. Consequentially, this preceding description of symptoms, which may include the patient's categorized chief complaint in the EMR, do not reflect my personal clinical impression, and the ultimate description of history of present illness and patient stated complaints should be deferred to this section of the note. Unless stated otherwise or congruent with this section of the note, additional signs, symptoms, or incongruence should be interpreted as inaccurate with my clinical impression. Onset (ago): hour(s) Related Data Home Medications ?Medication ?Instructions ?Recorded ?Confirmed levothyroxine 175 mcg capsule 175 mcg PO DAILY 5 05/10/25 Previous Rx's ?Medication ?Instructions ?Recorded promethazine 12.5 mg tablet 12.5 mg PO Q6H #30 tabs Allergies Allergy/AdvReac Type Severity Reaction Status Date / Time mushroom Allergy Rash Verified 05/10/25 09:24 [facility] Disclaimer: The information contained in this section may have been updated after the patient was seen, as this information can be updated by other users. Medical History Marijuana use Serous otitis media This seems to be more of an issue on the left side than the right Dysfunction of left eustachian tube Tinnitus PTSD (post-traumatic stress disorder) GERD (gastroesophageal reflux disease) Hypothyroid Suicidal intent Intentional acetaminophen overdose Suicidal ideation Pain in female pelvis Surgical History Status post arthroscopy of left shoulder Status post shoulder surgery H/O adenoidectomy H/O thyroidectomy History of tonsillectomy and adenoidectomy History of placement of ear tubes Family History Other No significant family history Social History Smoking Status: Former smoker tobacco type: e-cigarettes alcohol intake: never substance use type: marijuana current occupational status: employed and student Travel in the last 8 weeks?: None number of children: 0 caffeine: No Have you lived/traveled outside US in past 30 days?: No Contact w/someone who lives/traveled outside US past 30 days?: No Exposure to someone with infectious disease in past 14 days?: No Do you have a fever (greater than 100.4 F or 38 C)?: No Have you tested positive for COVID-19?: No Exposed to someone with COVID-19 in past 14 days?: No Do you have a sore throat?: No Do you have a cough?: No Do you have any weakness?: No Do you have any diarrhea?: No Are you experiencing any unusual bleeding?: No Do you have any muscle aches/pain?: No Do you have any abdominal pain?: No Are you experiencing loss of taste or smell?: No Other Medical History Have you received the Flu Vaccine for this season: No Have you received the Pneumonia Vaccine: No ROS Obtained: Yes All systems reviewed & no additional complaints except as documented Physical Exam General General appearance: alert and in no apparent distress Head Head exam: atraumatic and normocephalic Eye Eye exam: Present PERRL and EOMI ENT ENT exam: Present mucous membranes moist Neck Neck exam: Present normal inspection Chest Chest inspection: Present normal inspection and symmetric chest wall rise Respiratory Respiratory exam: Present normal lung sounds bilaterally; Absent respiratory distress Cardiovascular Cardiovascular exam: Present regular rate and normal rhythm Abdominal Exam Abdominal exam: Present soft; Absent tenderness Extremities Exam Extremities exam: Present normal inspection Neurological Exam Neurological exam: Present alert and oriented X3 Psychiatric Psychiatric exam: Present normal affect Skin Skin exam: Present warm and dry Medical Decision Making Medical Records Medical records reviewed: Yes I reviewed the patient's medical records. Screening: Per USPSTF and CDC recommendations, given the prevalence of disease in our region, it is our hospital?s policy to screen for HIV and viral Hepatitis for all patients aged 18 and over and those with ongoing risk factors. Rick Inquiry Pt receiving controlled substance: No Rick was queried for this patient: No Vital Signs: 05/13/25 15:09 05/13/25 15:09 05/13/25 15:36 Temperature 98.6 F Temperature Source Oral Pulse Rate 70 59 L Pulse Rate [Right] 83 Respiratory Rate 15 Blood Pressure 115/53 L 112/65 Blood Pressure [Right Arm] 121/76 Blood Pressure Mean [Right Arm] 91 02 Sat by Pulse Oximetry 100 100 99 Oxygen Delivery Method Room Air 05/13/25 16:00 05/13/25 16:29 05/13/25 16:45 Temperature Temperature Source Pulse Rate 60 62 61 Pulse Rate [Right] Respiratory Rate Blood Pressure 110/71 100/51 L Blood Pressure [Right Arm] Blood Pressure Mean [Right Arm] 02 Sat by Pulse Oximetry 98 100 100 Oxygen Delivery Method Room Air Room Air Lab Data Lab results reviewed: Yes I reviewed the patient's lab results. Lab Results 05/13/25 15:35: WBC 12.3, RBC 4.68, Hgb 14.0, Hct 40.5, MCV 86.5, MCH 29.9, MCHC 34.6, RDW 13.2, Plt Count 269, MPV 10.0, Neut % (Auto) 67.8, Lymph % (Auto) 23.6, [place] % (Auto) 7.5, Eos % (Auto) 0.2, Baso % (Auto) 0.7, Neut # (Auto) 8.3 H, Lymph # (Auto) 2.9, [place] # (Auto) 0.9, Eos # (Auto) 0.0, Baso # (Auto) 0.1, Sodium 139, Potassium 4.0, Chloride 104, Carbon Dioxide 24, Anion Gap 15.0, BUN 5 L, Creatinine 0.80, Estimated Creat Clear 111, Estimated GFR 91, Est GFR ( Amer) 111, Glucose 89, Calcium 9.9, Magnesium 1.7, Total Bilirubin 0.7, AST 35, ALT 13, Alkaline Phosphatase 61, Total Protein 8.4 H, Albumin 5.3 H, Globulin 3.1, Albumin/Globulin Ratio 1.7, HCG, Quant [id number] H 05/13/25 15:35 05/13/25 15:35 Orders (Tests/Meds): ED MEDICATIONS Discontinued Medications Generic Name Dose Route Start Last Admin Trade Name Freq PRN Reason Stop Dose Admin Diphenhydramine HCl 25 mg 05/13/25 16:09 05/13/25 16:12 Diphenhydramine 50mg/Ml Vial IV 05/13/25 16:10 25 mg ONCE ONE Administration Doxylamine Succinate/Pyridoxine 1 tab 05/13/25 15:35 05/13/25 16:12 Doxylamine 10mg/Pyridoxine 10mg Tablet PO 05/13/25 15:36 1 tab ONCE ONE Administration Lactated Ringer's 1,000 mls @ 999 mls/hr 05/13/25 15:34 05/13/25 16:03 Lactated Ringer's 1000 Ml Bag IV 05/13/25 16:34 999 mls/hr .Q1H1M ONE Administration Metoclopramide HCl 5 mg 05/13/25 16:07 05/13/25 16:12 Metoclopramide Hcl 10mg/2ml Vial IVP 05/13/25 16:08 5 mg ONCE ONE Administration ORDERS Category Date Time Status Complete Blood Count Auto Diff Stat Lab 05/13/25 15:35 Completed Comprehensive Metabolic Panel Stat Lab 05/13/25 15:35 Completed HCG,Quantitative Stat Lab 05/13/25 15:35 Completed Magnesium Stat Lab 05/13/25 15:35 Completed Urinalysis and Microscopic Stat Lab 05/13/25 17:07 Received Medical Decision Narrative: 20-year-old A1, 6 weeks gestation female presents to the emergency department with nausea and vomiting, differential diagnosis include but not limited to, gastroenteritis, acute UTI, hyperemesis gravidarum, electrolyte disturbance, hypovolemia among others. I discussed this patient's case with the attending physician Dr. Delatorre she saw and examined the patient as well. Will obtain basic laboratory studies, magnesium level, UA, hCG quantitative, will give doxylamine p.o. 10 mg for nausea and vomiting, will give 1 L LR IV, will give 5 mg IV Reglan as well as 25 mg IV Benadryl CBC unremarkable CMP unremarkable hCG is 87,756 which is trending upward from May 08. Patient was able to give us urinalysis here in the emergency department, would like to be discharged home to self-care her symptomatology is improved, I think this appropriate she had decision-making is utilized, will call patient with results of her urinalysis if actionable and and if need to treated for asymptomatic bacteria. Patient was given strict ED return precautions. Patient will follow-up with PCP and GARAGE DOOR TECHNICIAN in the upcoming days/weeks. She will continue take all of her medication as prescribed. In attempt adequate p.o. intake, utilize antiemetics such as Phenergan as needed. Critical Care Critical Care Time Critical Care Time: No
[2025-05-13 15:36] VITALS: BP 112/65; PULSE 59; O2SAT 99
[2025-05-13 15:52] LABS: Hematocrit 40.5 % (37.0-47.0); Hemoglobin 14.0 g/dL (12.2-16.2); Immature Granulocytes % 0.2 %; Mean Corpuscular HGB Conc 34.6 g/dL (31.8-35.4); Mean Corpuscular Hemoglobin 29.9 pg (27.0-31.2); Mean Corpuscular Volume 86.5 fl (81-99); Nucleated Red Blood Cells % 0 %; Platelet Count 269 K/mm3 (142-424); Red Blood Count 4.68 M/mm3 (4.20-5.40); Red Cell Distribution Width-SD 41.8 fL; White Blood Count 12.3 K/mm3 (4.5-13.0)
[2025-05-13 15:56] LABS: Albumin Level 5.3 g/dl (3.5-5.0); Chloride 104 mmol/L (98-107); Potassium 4.0 mmoL/L (3.5-5.1); Sodium 139 mmol/L (136-145)
[2025-05-13 15:59] LABS: Alanine Aminotransferase 13 U/L (12-78); Albumin/Globulin Ratio 1.7 (1.1-1.8); Alkaline Phosphatase 61 U/L (38-126); Anion Gap 15.0 mEq/L (5-15); Aspartate Amino Transferase 35 U/L (14-36); Bilirubin,Total 0.7 mg/dl (0.2-1.3); Blood Urea Nitrogen 5 mg/dl (7-17); Calcium 9.9 mg/dl (8.4-10.2); Carbon Dioxide 24 mmol/L (22.0-30.0); Creatinine Clearance Estimated 111 mL/min (50-200); Creatinine,Serum 0.80 mg/dl (0.52-1.04); Estimated Glomerular Filt Rate 91 ml/min (>60); GFR (African American) 111 ML/MIN (>60); Globulin 3.1 g/dL (1.3-3.2); Glucose 89 mg/dl (74-100); Magnesium 1.7 mg/dl (1.6-2.3); Total Protein,Serum 8.4 g/dl (6.3-8.2)
[2025-05-13 16:00] VITALS: BP 110/71; PULSE 60; O2SAT 98
[2025-05-13] MEDS: LACTATED RINGERS 1000ML 1,000 ML 999 ML IV (16:03)
[2025-05-13] MEDS: DOXYLAMINE 10MG/PYRIDOXINE 10MG TABLET 1 TAB PO (16:12)
[2025-05-13] MEDS: METOCLOPRAMIDE HCL 10MG/2ML VIAL 5 MG IVP (16:12)
[2025-05-13 16:29] VITALS: BP 100/51; PULSE 62; O2SAT 100
[2025-05-13 16:45] VITALS: PULSE 61; O2SAT 100
[2025-05-13 17:12] LABS: Microscopic, Urine URINE MICROSCOPIC (MICROSCOPIC)
[2025-05-13 17:18] LABS: Bilirubin,Urine Negative (Negative); Color,Urine YELLOW (Yellow); Glucose,Urine (UA) Negative (Negative); Ketones,Urine 1+ (Negative); Leukocyte Esterase,Urine Negative (Negative); PH,Urine 6.5 (5.0-8.5); Protein,Urine Negative (Negative); Specific Gravity, Urine <= 1.005 (1.005-1.030); Urobilinogen,Urine 0.2 EU/dl (0.2)
[2025-05-13 17:35] VITALS: BP 100/51; PULSE 66; RESP 14; TEMP 36.6; O2SAT 99
[2025-05-13 17:52] LABS: Bacteria,Urine 2+ /lpf
--- NOTE | 2025-05-13 18:04 | ED_ITS ---
<Statement entered by Gabriela Delatorre DO - 05/13/25 20:26> I was consulted by the KRAIG, and we discussed the complexity of problems being addressed. I approve the treatment and management plan for this patient's care in the emergency department, thus performing a substantial portion of the medical decision making. Gabriela Delatorre DO Discharge Plan Disposition Patient Disposition: Home, Self-Care Condition: Good Prescriptions Prescriptions: New cephalexin 250 mg capsule 250 mg PO Q6H 5 Days Qty: 20 0RF No Action levothyroxine 175 mcg capsule 175 mcg PO DAILY promethazine 12.5 mg tablet 12.5 mg PO Q6H Qty: 30 3RF Referrals Follow up/Referrals: Kuldeep Harris MD [Primary Care Provider, Internal Medicine] - See instructions Activity Restrictions/Add. Instructions Additional Instructions/Restrictions: Please follow-up with your CARGO SUPERVISOR in the upcoming days, please utilize Phenergan another antiemetic medication such as vitamin B6 which you can purchase [id number] as needed for your nausea and vomiting. Please return to the emergency department with any worsening signs or symptoms. We will call you with the results of your urine test if results are actionable. Clinical Impressions Clinical Impression: Hyperemesis gravidarum Instructions Patient Instructions: DI for Hyperemesis Gravidarum Print Language Print Language: Polish Discharge ED Provider: Gabriela Delatorre General Adult HPI General Chief complaint: Nausea/Vomiting/Diarrhea Stated complaint: 6.5 weeks preg,cramping,n/v Time Seen by Provider: 05/13/25 15:18 Mode of Arrival: Ambulatory Source of Information: Patient Description of Symptoms (Recalled from ER Triage Doc. by RN): PT IS CURRENTLY 6 WEEKS . EXPERIENCING VOMITING SINCE 3AM. HAS BEEN TO ER RECENTLY AND SEEN BY HER OB. SYMPTOMS CONTINUE History of Present Illness Onset (ago): hour(s) Related Data Home Medications ?Medication ?Instructions ?Recorded ?Confirmed levothyroxine 175 mcg capsule 175 mcg PO DAILY 5 05/10/25 Previous Rx's ?Medication ?Instructions ?Recorded promethazine 12.5 mg tablet 12.5 mg PO Q6H #30 tabs cephalexin 250 mg capsule 250 mg PO Q6H 5 days #20 cap s 05/13/25 Allergies Allergy/AdvReac Type Severity Reaction Status Date / Time mushroom Allergy Rash Verified 05/10/25 09:24 [facility] Disclaimer: The information contained in this section may have been updated after the patient was seen, as this information can be updated by other users. Medical History Marijuana use Serous otitis media This seems to be more of an issue on the left side than the right Dysfunction of left eustachian tube Tinnitus PTSD (post-traumatic stress disorder) GERD (gastroesophageal reflux disease) Hypothyroid Suicidal intent Intentional acetaminophen overdose Suicidal ideation Pain in female pelvis Surgical History Status post arthroscopy of left shoulder Status post shoulder surgery H/O adenoidectomy H/O thyroidectomy History of tonsillectomy and adenoidectomy History of placement of ear tubes Family History Other No significant family history Social History Smoking Status: Former smoker tobacco type: e-cigarettes alcohol intake: never substance use type: marijuana current occupational status: employed and student Travel in the last 8 weeks?: None number of children: 0 caffeine: No Have you lived/traveled outside [place] in past 30 days?: No Contact w/someone who lives/traveled outside US past 30 days?: No Exposure to someone with infectious disease in past 14 days?: No Do you have a fever (greater than 100.4 F or 38 C)?: No Have you tested positive for COVID-19?: No Exposed to someone with COVID-19 in past 14 days?: No Do you have a sore throat?: No Do you have a cough?: No Do you have any weakness?: No Do you have any diarrhea?: No Are you experiencing any unusual bleeding?: No Do you have any muscle aches/pain?: No Do you have any abdominal pain?: No Are you experiencing loss of taste or smell?: No Other Medical History Have you received the Flu Vaccine for this season: No Have you received the Pneumonia Vaccine: No ROS Obtained: Yes All systems reviewed & no additional complaints except as documented Physical Exam General General appearance: alert and in no apparent distress Respiratory Respiratory exam: Present normal lung sounds bilaterally Cardiovascular Cardiovascular exam: Present regular rate and clicks Neurological Exam Neurological exam: Present alert Medical Decision Making Medical Records Screening: Per USPSTF and CDC recommendations, given the prevalence of disease in our region, it is our hospital?s policy to screen for HIV and viral Hepatitis for all patients aged 18 and over and those with ongoing risk factors. Rick Inquiry Pt receiving controlled substance: No Vital Signs: 05/13/25 15:09 05/13/25 15:09 05/13/25 15:36 Temperature 98.6 F Temperature Source Oral Pulse Rate 70 59 L Pulse Rate [Right] 83 Respiratory Rate 15 Blood Pressure 115/53 L 112/65 Blood Pressure [Right Arm] 121/76 Blood Pressure Mean [Right Arm] 91 02 Sat by Pulse Oximetry 100 100 99 Oxygen Delivery Method Room Air 05/13/25 16:00 05/13/25 16:29 05/13/25 16:45 Temperature Temperature Source Pulse Rate 60 62 61 Pulse Rate [Right] Respiratory Rate Blood Pressure 110/71 100/51 L Blood Pressure [Right Arm] Blood Pressure Mean [Right Arm] 02 Sat by Pulse Oximetry 98 100 100 Oxygen Delivery Method Room Air Room Air 05/13/25 17:35 Temperature 98 F Temperature Source Pulse Rate 66 Pulse Rate [Right] Respiratory Rate 14 Blood Pressure 100/51 L Blood Pressure [Right Arm] Blood Pressure Mean [Right Arm] 02 Sat by Pulse Oximetry Oxygen Delivery Method Lab Data Lab Results 05/13/25 15:35: WBC 12.3, RBC 4.68, Hgb 14.0, Hct 40.5, MCV 86.5, MCH 29.9, MCHC 34.6, RDW 13.2, Plt Count 269, MPV 10.0, Neut % (Auto) 67.8, Lymph % (Auto) 23.6, Potter % (Auto) 7.5, Eos % (Auto) 0.2, Baso % (Auto) 0.7, Neut # (Auto) 8.3 H, Lymph # (Auto) 2.9, Potter # (Auto) 0.9, Eos # (Auto) 0.0, Baso # (Auto) 0.1, Sodium 139, Potassium 4.0, Chloride 104, Carbon Dioxide 24, Anion Gap 15.0, BUN 5 L, Creatinine 0.80, Estimated Creat Clear 111, Estimated GFR 91, Est GFR ( Amer) 111, Glucose 89, Calcium 9.9, Magnesium 1.7, Total Bilirubin 0.7, AST 35, ALT 13, Alkaline Phosphatase 61, Total Protein 8.4 H, Albumin 5.3 H, Globulin 3.1, Albumin/Globulin Ratio 1.7, HCG, Quant [id number] H 05/13/25 17:07: Urine Color Yellow, Urine Appearance Clear, Urine pH 6.5, Ur Specific [place] <= 1.005, Urine Protein Negative, Urine Glucose (UA) Negative, Urine Ketones 1+, Urine Blood Negative, Urine Nitrate Negative, Urine Bilirubin Negative, Urine Urobilinogen 0.2, Ur Leukocyte Esterase Negative, Urine RBC None, Urine WBC 10-20, Ur Squamous Epith Cells 10-20, Urine Bacteria 2+ 05/13/25 15:35 05/13/25 15:35 Orders (Tests/Meds): ED MEDICATIONS Discontinued Medications Generic Name Dose Route Start Last Admin Trade Name Freq PRN Reason Stop Dose Admin Diphenhydramine HCl 25 mg 05/13/25 16:09 05/13/25 16:12 Diphenhydramine 50mg/Ml Vial IV 05/13/25 16:10 25 mg ONCE ONE Administration Doxylamine Succinate/Pyridoxine 1 tab 05/13/25 15:35 05/13/25 16:12 Doxylamine 10mg/Pyridoxine 10mg Tablet PO 05/13/25 15:36 1 tab ONCE ONE Administration Lactated Ringer's 1,000 mls @ 999 mls/hr 05/13/25 15:34 05/13/25 17:44 Lactated Ringer's 1000 Ml Bag IV 05/13/25 16:34 Infused .Q1H1M ONE Infusion Metoclopramide HCl 5 mg 05/13/25 16:07 05/13/25 16:12 Metoclopramide Hcl 10mg/2ml Vial IVP 05/13/25 16:08 5 mg ONCE ONE Administration ORDERS Category Date Time Status Complete Blood Count Auto Diff Stat Lab 05/13/25 15:35 Completed Comprehensive Metabolic Panel Stat Lab 05/13/25 15:35 Completed HCG,Quantitative Stat Lab 05/13/25 15:35 Completed Magnesium Stat Lab 05/13/25 15:35 Completed Urinalysis and Microscopic Stat Lab 05/13/25 17:07 Completed Urine Culture Stat Micro 05/13/25 17:07 Received Medical Decision Narrative: UA is notable for 2+ bacteria, 10-20 WBCs, 10-20 squamous epithelial cells, will treat for asymptomatic bacteriuria we will call the patient in Keflex 250 mg p.o. every 6 for 5 days, discussed this with the patient over the phone at approximately 6:07 PM, she voiced understanding and agreement with current treatment plan for asymptomatic bacteria. Critical Care Critical Care Time Critical Care Time: No
== END 2025-05-13 17:44 | disposition home or self-care (01) ==
PROVIDERS: Physician Assistant; Emergency Provider Student in an Organized Health Care Education/Training Program; PCP Internal Medicine Adolescent Medicine
DX: O21.0 Mild hyperemesis gravidarum (principal); Z3A.01 Less than 8 weeks gestation of pregnancy
CPT/HCPCS: 80053; 81001; 83735; 84702; 85025; 87086; 96361; 96374; 96375; 99285; J1200; J2765; J7120

== ENCOUNTER 2025-05-16 13:54 | Outpatient (CLI) | payer OTHER, SELFPAY ==
--- OUTSIDE RECORDS SUMMARY | 2006-11-09 01:00 | XMS_ITS | Encounter Summary ---
Author Organization [facility] Address [address] [place] [address] Care Team Providers Care Mink Slicer Name Role Phone Unavailable Primary Care Provider Unavailabl e Encounter Details Date Type Department Care Team (Late st Contact Info) Description 11/09/2006 Hospital Encounter [facility] Division of Cardiology [address] [place] [phone] Social History Tobacco Use Types Packs/Day [...]
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
--- OUTSIDE RECORDS SUMMARY | 2025-05-16 13:58 | XMS_ITS | Clinical Summary ---
Author Organization [facility] Address [address] [place] [address] Phone Care Team Providers Care Coating Supervisor Name Role Phone Kuldeep Harris MD Primary Care Provider [phone] Allergies No known active allergies Medications LEVOthyroxine [...] 2005 HPV Completed 10/19/2017, 03/21, 02/20/2016 Insurance [facility] [id number] Care Teams Coating Supervisor Relationship Specialty Start Date End Date Kuldeep Harris MD [address] [place] [id number] PCP - General Internal Medicine-Adolescent Medicine 12/15/23
--- OUTSIDE RECORDS SUMMARY | 2025-05-16 13:58 | XMS_ITS | Clinical Summary ---
Author Organization [facility] Address [address] [place] [address] Care Team Providers Care Recruitment Advertising Manager Name Role Phone Unavailable Primary Care Provider Unavailabl e Source Comments [facility] is fully rolled out with thefollowing exceptions:General Clinical Research [facility] Social History Tobacco Use Types Packs/Day [...]
--- OUTSIDE RECORDS SUMMARY | 2025-05-16 13:58 | XMS_ITS | Encounter Summary ---
Author Organization [facility] Address [address] [id number] Care Team Providers Care Butcher Head Name Role Phone Katherin Maloney DO Primary Care Provider [phone]- [phone] Reason for Referral * Consultation (Routine) - Authorized Specialty Diagnoses / Procedures Referred By Denise hernandez Referred To Contact Nephrology Diagnoses Abnormal kidney function Dorothy Kaplan, CORRECTIVE THERAPY AIDE [address] [place] [address] Phone: tel: fax: [facility]ph[facility], Bone [facility] [address], [address] [place] [address] Phone: tel: fax: Referral ID Status Reason Start Date Expiration Date Visits Requested Visits Authorized [id number] Authorized Specialty Services Required 10/28/2024 04/29/2026 1 1 * Consultation (Routine) - Authorized Specialty Diagnoses / Procedures Referred By Denise hernandez Referred To Contact Endocrinology Diagnoses Acquired hypothyroidism Dorothy Kaplan, CORRECTIVE THERAPY AIDE [address] [address] Phone: tel: fax: [facility] Endocrinology [address] [place] [phone] Phone: tel: fax: Referral ID Status Reason Start Date Expiration Date Visits Requested Visits Authorized [id number] Authorized Specialty Services Required 10/28/2024 04/29/2026 1 1 Encounter Details Date Type Department Care Team (Latest Contact Info) Description 10/28/2024 [facility] Practice [address] [place] [address] Dorothy Kaplan APRN [address] [address] Acquired hypothyroidism (Primary Dx); Abnormal kidney function [...] documented as of this encounter Care Teams Butcher Head Relationship Specialty Start Date End Date Katherin Maloney DO [address] [address] PCP - General 02/01/21 documented as of this encounter
--- OUTSIDE RECORDS SUMMARY | 2025-05-16 13:58 | XMS_ITS | Encounter Summary ---
Author Organization [facility] Address [address] [place] [address] Care Team Providers Care Bundle Breaker Name Role Phone Katherin Maloney DO Primary Care Provider [phone]- [phone] Encounter Details Date Type Department Care Team (Late st Contact Info) Description 04/16/2023 [facility] [address] [place] [address] Nica Rae DO [address] [place] [address] [place] [address] Chronic abdominal pain (Primary Dx) Social [...] documented as of this encounter Care Teams Bundle Breaker Relationship Specialty Start Date End Date Katherin Maloney DO [address] [place] [address] PCP - General 02/01/21 documented as of this encounter
--- OUTSIDE RECORDS SUMMARY | 2025-05-16 13:58 | XMS_ITS | Clinical Summary ---
Author Organization [facility] Address [address] [place] [address] Care Team Providers Care Retail Shift Leader Name Role Phone Haider Katherin Champ MORALES Primary Care Provider [phone]- [phone] Allergies No known active allergies Medications FLUoxetine [...] SDOH Screenings 2023 [facility]-Adult SDOH Screenings 2023 [id number] Vaccine ( season) 2024 [facility]-Influenza Vaccine (#1) [...] patient's age to complete this topic Insurance [facility] MEDICAID [facility] MEDICAID Arturo Lozano, [place] [address] [facility] Advance Directives Documents on File Type Date Recorded Patient Program Technician Expl anation Power of Shear Setter 08/12/2021 POA for An otf Care Teams Retail Shift Leader Relationship Specialty Start Date End Date Katherin Maloney DO [address] [place] [facility] [place] [address] [id number] PCP - General 02/01/21
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
--- NOTE | 2025-05-16 14:00 | US_ITS ---
PROCEDURE: US OB TRANSVAGINAL CLINICAL INDICATION: 1wk ob follow up tvus COMPARISON: US US OB TRANSVAGINAL from 05/05/2025 US US OB <= 14 WEEKS FETUS from 05/08/2025 FINDINGS: Transvaginal sonographic images of the pelvis were obtained. Her last menstrual period is unknown. An intrauterine gestational sac is present with a pole with a crown-rump length of 0.79cm This correlates to a gestational age of 6weeks 6days. SHANKAR 01/03/2026 heart tones are present with an FHR of 120bpm. Yolk sac is noted. The yolk sac measures 5.5mm. The right ovary is seen and appears normal. There continues to be a consistent hypervascular thick rimmed area with a central small cyst. Likely a persistent corpus luteum. The left ovary is seen and appears normal. There is no fluid in the cul-de-sac. IMPRESSION: 1. Viable embryo within the uterine cavity. heart rate activity is seen. 2. The embryo measures 6 weeks 6 days and SHANKAR will be 01/03/2026. 3. There is a persistent hypervascular area in the right ovary that is likely a corpus luteum. The regional sales director commented that the right ovary was still slightly tender. Similar in size to previous exam 05/08/2025. Would suggest follow-up in 1 week for completeness. 4. Left ovary appears normal. 5. No fluid in the cul-de-sac. Dictated by: Rahul Whitehead MD 05/16/2025 18:21 Rahul Whitehead MD in OV 05/16/2025 18:21
== END 2025-05-16 23:59 | disposition home or self-care (01) ==
LOC: RAD 13:55
PROVIDERS: PCP Internal Medicine Adolescent Medicine; Visit Provider Obstetrics & Gynecology
DX: O28.3 Abnormal ultrasonic finding on antenatal screening of mother (principal); N83.201 Unspecified ovarian cyst, right side; Z3A.01 Less than 8 weeks gestation of pregnancy
CPT/HCPCS: 76817

== ENCOUNTER 2025-05-23 11:49 | Outpatient (CLI) | payer OTHER, SELFPAY ==
--- OUTSIDE RECORDS SUMMARY | 2006-11-09 01:00 | XMS_ITS | Encounter Summary ---
Author Organization [facility] Address [address] [place] [address] Care Team Providers Care Singing Teacher Name Role Phone Unavailable Primary Care Provider Unavailabl e Encounter Details Date Type Department Care Team (Late st Contact Info) Description 11/09/2006 Hospital Encounter [facility] Division of Cardiology [address] [place] [phone] Social History Tobacco Use Types Packs/Day [...]
--- OUTSIDE RECORDS SUMMARY | 2025-05-23 11:58 | XMS_ITS | Clinical Summary ---
Author Organization [facility] Address [address] [place] [address] Care Team Providers Care Sales Expert Home Theater Name Role Phone Haider Katherin Champ M[place]AL[place] Primary Care Provider [phone] Allergies No known active allergies Medications FLUoxetine [...] SDOH Screenings 2023 [facility]-Adult SDOH Screenings 2023 [id number] Vaccine ( season) 2024 [facility]-Influenza Vaccine (#1) [...] patient's age to complete this topic Insurance [facility] MEDICAID [facility] MEDICAID Arturo [place], [place] [address] [facility] Advance Directives Documents on File Type Date Recorded Patient Communications Programmer Expl anation Power of Court Operations Clerk 08/12/2021 POA for An otf Care Teams Sales Expert Home Theater Relationship Specialty Start Date End Date Katherin Maloney DO [address] [facility] [place] [address] [id number] PCP - General 02/01/21
--- OUTSIDE RECORDS SUMMARY | 2025-05-23 11:58 | XMS_ITS | Clinical Summary ---
Author Organization [facility] Address [address] [place] [address] Care Team Providers Care Proj Mgr Name Role Phone Unavailable Primary Care Provider Unavailabl e Source Comments [facility] is fully rolled out with thefollowing exceptions:General Clinical Research [facility] Social History Tobacco Use Types Packs/Day [...] COVID-19 Vaccine (1 - 2023-2 5 season) 2025 AMB SEASONAL FLU VACCINE (#1) 07/22/2025 HIB [...]
--- OUTSIDE RECORDS SUMMARY | 2025-05-23 11:58 | XMS_ITS | Clinical Summary ---
Author Organization [facility] Address [address] [place] [address] Phone Care Team Providers Care Form Tamper Name Role Phone Kuldeep Harris MD Primary Care Provider [phone] Allergies No known active allergies Medications LEVOthyroxine [...] 2005 HPV Completed 10/19/2017, 03/21, 02/20/2016 Insurance [facility] [id number] Care Teams Form Tamper Relationship Specialty Start Date End Date Kuldeep Harris MD [address] [place] [id number] PCP - General Internal Medicine-Adolescent Medicine 12/15/23
--- OUTSIDE RECORDS SUMMARY | 2025-05-23 11:58 | XMS_ITS | Encounter Summary ---
Author Organization [facility] Address [address] [id number] Care Team Providers Care Unishear Operator Name Role Phone Con Maloneyen Champ MORALES Primary Care Provider [phone]- [phone] Reason for Referral * Consultation (Routine) - Authorized Specialty Diagnoses / Procedures Referred By Denise hernandez Referred To Contact Nephrology Diagnoses Abnormal kidney function Dorothy Kaplan, CUSTOMER ACCOUNT EXECUTIVE [address] [place] [address] Phone: tel: fax: [facility] Nephrology, Bone & Mineral Metabolism [address] [facility], [address] [place] [address] Phone: tel: fax: Referral ID Status Reason Start Date Expiration Date Visits Requested Visits Authorized [id number] Authorized Specialty Services Required 10/28/2024 04/29/2026 1 1 * Consultation (Routine) - Authorized Specialty Diagnoses / Procedures Referred By Denise hernandez Referred To Contact Endocrinology Diagnoses Acquired hypothyroidism Dorotyh Kaplan, CUSTOMER ACCOUNT EXECUTIVE [address] [address] Phone: tel: fax: [facility] Endocrinology [address] [place] [address] Phone: tel: fax: Referral ID Status Reason Start Date Expiration Date Visits Requested Visits Authorized [id number] Authorized Specialty Services Required 10/28/2024 04/29/2026 1 1 Encounter Details Date Type Department Care Team (Latest Contact Info) Description 10/28/2024 [facility] Practice [address] [place] [address] Dorothy Kaplan APRN [address] [address] Acquired hypothyroidism (Primary Dx); Abnormal kidney function [...] documented as of this encounter Care Teams Unishear Operator Relationship Specialty Start Date End Date Katherin Maloney DO [address] [address] PCP - General 02/01/21 documented as of this encounter
--- OUTSIDE RECORDS SUMMARY | 2025-05-23 11:58 | XMS_ITS | Encounter Summary ---
Author Organization [facility] Address [address] [place] [address] Care Team Providers Care Home Help Aide Name Role Phone Katherin Maloney DO Primary Care Provider [phone] Encounter Details Date Type Department Care Team (Late st Contact Info) Description 04/16/2023 [facility] [address] [place] [address] Nica Rae DO [address] [place] [address] Chronic abdominal pain (Primary Dx) Social [...] documented as of this encounter Care Teams Home Help Aide Relationship Specialty Start Date End Date Katherin Maloney DO [address] [place] [address] PCP - General 02/01/21 documented as of this encounter
[2025-05-23 12:58] LABS: Free T4 (Free Thyroxine) 2.06 ng/dl (0.78-2.19)
[2025-05-23 13:12] LABS: Thyroid Stimulating Hormone 7.90 uIU/mL (0.465-4.68)
[2025-05-24 08:13] LABS: Triiodothyronine (T3) Free 3.2 pg/mL (2.0-4.4)
[2025-05-26 05:09] LABS: Neisseria gonorrhoeae, NAA Negative (Negative)
== END 2025-05-23 23:59 | disposition home or self-care (01) ==
PROVIDERS: PCP Internal Medicine Adolescent Medicine; Visit Provider Obstetrics & Gynecology
DX: O21.0 Mild hyperemesis gravidarum (principal); E89.0 Postprocedural hypothyroidism
CPT/HCPCS: 36415; 84439; 84443; 84480; 84481; 87086; 87491; 87591

== ENCOUNTER 2025-05-24 17:10 | Emergency (ER) | payer OTHER, SELFPAY ==
--- OUTSIDE RECORDS SUMMARY | 2006-11-09 01:00 | XMS_ITS | Encounter Summary ---
Author Organization [facility] Address [address] [place] [address] Care Team Providers Care Detective Homicide Squad Name Role Phone Unavailable Primary Care Provider Unavailabl e Encounter Details Date Type Department Care Team (Late st Contact Info) Description 11/09/2006 Hospital Encounter [facility] Division of Cardiology [address] [place] [phone] Social History Tobacco Use Types Packs/Day [...]
--- OUTSIDE RECORDS SUMMARY | 2024-12-24 17:30 | XMS_ITS ---
Author Organization [facility] Address [address] [facility] [address] [place], [place] [address] Care Team Providers Care Director [employer] Name Role Phone Kuldeep Harris Primary Care Provider Dorothy Kaplan Unavailable [phone] Migration, Provider Unavailable Unavailable REASON FOR VISIT [facility] Conversion Encounter Medications Medication SIG (Take, Route, Frequency, Duration) Notes Start Date End Date Status Famotidine 40 MG 1 tab(s) orally once a day (at bedtime); Duration: 14 days 10/26/2023 Active Levothyroxine Sodium 150 MCG 1 tab(s) or ally once a day; Duration: 30 days 12/06/2024 Active Encounters Encounter Location Date Provider Diagnosis [facility] [address] [facility] [address] [place], [place] [address] 12/24/2024 Provider Migration Plan Of Treatment Medication Medication Name Sig Start Date Stop Date Notes Levothyroxine Sodium 150 MCG 1 tab(s) or ally once a day; Duration: 30 days 12/06/2024 Progress Notes * [place] NATIONOB:2005 (20 yo F)Acc No.[id number]:12/24/2024 Patient: Liz DIAZ Provider: Chey medina Migration :2005 A ge:19 Y S ex:Female Date:12/24/2024 Address:[address] [place], [id number] Pcp:Kuldeep Harris Subjective: * Chief Complaints: * 1 . [facility] Conversion Encounter. * Medical History: * Medications: T aking Famotidine 40 MG Tablet 1 tab(s) orally once a day (at bedtime) Objective: * Vitals: Assessment: Plan: * Treatment: * * Electronic signature of Jona solis Migration on 05/24/2025 at 05:40 PM EDT Sign off status: Pending * Provider: Chey medina Migration Date: 12/24/2024 Generated for Kimi mcknight/Niraj/Arpitsmitting on: 0 05/24/2025 05:40 PM EDT
[2025-05-24 17:14] VITALS: BP 116/71; PULSE 64; RESP 16; TEMP 36.7; O2SAT 100; BMI 23.3
--- NOTE | 2025-05-24 17:29 | ED_ITS ---
<Statement entered by Holden Magana MD - 05/25/25 04:10> I was consulted by the KRAIG, and we discussed the complexity of the problems being addressed. I approve the treatment and management plan for this patient's care in the emergency department, thus performing a substantive portion of the medical decision making. Holden Magana MD Discharge Plan Disposition Patient Disposition: Home, Self-Care Condition: Good Prescriptions Prescriptions: No Action levothyroxine 175 mcg capsule 175 mcg PO DAILY promethazine 12.5 mg tablet 12.5 mg PO Q6H Qty: 30 3RF cephalexin 250 mg capsule 250 mg PO Q6H 5 Days Qty: 20 0RF Referrals Follow up/Referrals: Kuldeep Harris MD [Primary Care Provider, Internal Medicine] - See instructions Charmaine Hector DO [Staff Physician, PHOTOGRAPHIC EQUIPMENT TECHNICIAN] - See instructions Activity Restrictions/Add. Instructions Additional Instructions/Restrictions: You were evaluated on an emergency basis. It is very important that you follow- up with your primary care provider and any specialist who we discussed within the next 2 days in order to better assess your health more comprehensively. For example, incidental findings on imaging or laboratory results that were performed today may be discovered, which do not require immediate medical care, but may impact your health in the future. If your symptoms worsen or persist, please return to the emergency department immediately for reassessment. Take all medications as prescribed. In queue for allowing me to participate in your health care, and I hope you feel better soon. Clinical Impressions Clinical Impression: Hyperemesis gravidarum, Urinary tract infection Instructions Patient Instructions: DI for Hyperemesis Gravidarum Print Language Print Language: [place]ese Discharge ED Provider: Holden Magana General Adult HPI General Chief complaint: Nausea/Vomiting/Diarrhea Stated complaint: eight weeks preg,abdominal pain , vomiting Time Seen by Provider: 05/24/25 17:29 Mode of Arrival: Ambulatory Source of Information: Patient Description of Symptoms (Recalled from ER Triage Doc. by RN): patient presents to the ED today for 7/10 abdominal pain. patient is 8 weeks .patient has been severely nauseaous x2 days and vomiting, she states she cannot keep anything down. History of Present Illness HPI narrative: 20-year-old female that is approximately 8 weeks with a confirmed intrauterine presents to the emergency department with complaints of ongoing nausea and vomiting with diffuse abdominal pain. States she has followed up with her OB provider Dr. Hector who is given her Phenergan for symptom relief. He states despite taking the Phenergan she continues to have vomiting. Denies vaginal bleeding or fevers. States she has been diagnosed with hyperemesis gravidarum. Related Data Home Medications ?Medication ?Instructions ?Recorded ?Confirmed levothyroxine 175 mcg capsule 175 mcg PO DAILY 5 05/23/25 Previous Rx's ?Medication ?Instructions ?Recorded promethazine 12.5 mg tablet 12.5 mg PO Q6H #30 tabs cephalexin 250 mg capsule 250 mg PO Q6H 5 days #20 cap s 05/13/25 Allergies Allergy/AdvReac Type Severity Reaction Status Date / Time mushroom Allergy Rash Verified 05/23/25 11:05 [facility] Disclaimer: The information contained in this section may have been updated after the patient was seen, as this information can be updated by other users. Medical History (Updated 05/24/25 @ 20:03 by Erika Curiel) Encounter for related examination in first trimester Marijuana use Serous otitis media Dysfunction of left eustachian tube Tinnitus PTSD (post-traumatic stress disorder) GERD (gastroesophageal reflux disease) Hypothyroid Suicidal intent Intentional acetaminophen overdose Suicidal ideation Pain in female pelvis Surgical History Status post arthroscopy of left shoulder Status post shoulder surgery H/O adenoidectomy H/O thyroidectomy History of tonsillectomy and adenoidectomy History of placement of ear tubes Family History Other No significant family history Social History Smoking Status: Never smoker alcohol intake: never substance use type: marijuana current occupational status: employed and student Travel in the last 8 weeks?: None number of children: 0 caffeine: No Have you lived/traveled outside US in past 30 days?: No Contact w/someone who lives/traveled outside US past 30 days?: No Exposure to someone with infectious disease in past 14 days?: No Do you have a fever (greater than 100.4 F or 38 C)?: No Have you tested positive for COVID-19?: No Exposed to someone with COVID-19 in past 14 days?: No Do you have a sore throat?: No Do you have a cough?: No Do you have any weakness?: No Do you have any diarrhea?: No Are you experiencing any unusual bleeding?: No Do you have any muscle aches/pain?: No Do you have any abdominal pain?: No Are you experiencing loss of taste or smell?: No Other Medical History Have you received the Flu Vaccine for this season: No Have you received the Pneumonia Vaccine: No ROS Obtained: Yes other Gastrointestinal Gastrointestingal: Reports abdominal pain and vomiting Physical Exam Narrative Physical exam: General: Awake, aware, in no acute distress HEENT: Normocephalic, no evidence of trauma CV: RRR, no murmurs, rubs, or gallops Pulm: CTA bilaterally with no rhonchi, rales, wheezes ABD: Patient with diffuse abdominal tenderness with normal active bowel sounds Psych, appropriate mood and affect General General appearance: alert Respiratory Respiratory exam: Present normal lung sounds bilaterally Cardiovascular Cardiovascular exam: Present regular rate Neurological Exam Neurological exam: Present alert Medical Decision Making Medical Records Screening: Per USPSTF and CDC recommendations, given the prevalence of disease in our region, it is our hospital?s policy to screen for HIV and viral Hepatitis for all patients aged 18 and over and those with ongoing risk factors. Rick Inquiry Pt receiving controlled substance: No Vital Signs: 05/24/25 17:14 Temperature 98.1 F Temperature Source Temporal Artery Scan Pulse Rate [Left Radial] 64 Respiratory Rate 16 Blood Pressure [Right Arm] 116/71 Blood Pressure Mean [Right Arm] 86 Blood Pressure Source [Right Arm] Automatic Cuff Blood Pressure Position [Right Arm] Sitting 02 Sat by Pulse Oximetry 100 Oxygen Delivery Method Room Air Lab Data Lab Results 05/24/25 17:55: Urine Color Yellow, Urine Appearance Clear, Urine pH 6.5, Ur Specific [place] <= 1.005, Urine Protein Negative, Urine Glucose (UA) Negative, Urine Ketones 2+, Urine Blood Negative, Urine Nitrate Negative, Urine Bilirubin Negative, Urine Urobilinogen 0.2, Ur Leukocyte Esterase Negative, Urine RBC None, Urine WBC 5-10, Ur Squamous Epith Cells 5-10, Urine Bacteria 3+ 05/24/25 18:06: WBC 14.1 H, RBC 4.69, Hgb 14.0, Hct 40.0, MCV 85.3, MCH 29.9, MCHC 35.0, RDW 12.7, Plt Count 255, MPV 10.3, Neut % (Auto) 70.7, Lymph % (Auto) 19.9, [place] % (Auto) 8.5, Eos % (Auto) 0.2, Baso % (Auto) 0.4, Neut # (Auto) 10.0 H, Lymph # (Auto) 2.8, [place] # (Auto) 1.2 H, Eos # (Auto) 0.0, Baso # (Auto) 0.1, Sodium 137, Potassium 3.5, Chloride 104, Carbon Dioxide 23, Anion Gap 13.5, BUN 7, Creatinine 0.70, Estimated Creat Clear 121, Estimated GFR 107, Est GFR ( Amer) 129, Glucose 88, Calcium 9.6, Total Bilirubin 0.7, AST 32, ALT 16, Alkaline Phosphatase 52, Total Protein 7.7, Albumin 5.0, Globulin 2.7, A lbumin/Globulin Ratio 1.9 H, Lipase 70, HCG, Quant > 49667 H 05/24/25 18:06 05/24/25 18:06 Orders (Tests/Meds): ED MEDICATIONS Discontinued Medications Generic Name Dose Route Start Last Admin Trade Name Daniel PRN Reason Stop Dose Admin Diphenhydramine HCl 25 mg 05/24/25 19:10 05/24/25 19:14 Diphenhydramine 50mg/Ml Vial IV 05/24/25 19:11 Not Given ONCE ONE Diphenhydramine HCl 25 mg 05/24/25 19:11 05/24/25 19:19 Diphenhydramine 50mg/Ml Vial IV 05/24/25 19:12 25 mg ONCE ONE Administration Sodium Chloride 1,000 mls @ 999 mls/hr 05/24/25 17:30 05/24/25 18:23 Sod Chlor 0.9% 1000ml Bag IV 05/24/25 18:30 999 mls/hr .Q1H1M ONE Administration Metoclopramide HCl 10 mg 05/24/25 19:10 05/24/25 19:19 Metoclopramide Hcl 10mg/2ml Vial IVP 05/24/25 19:11 10 mg ONCE ONE Administration Metoclopramide HCl 10 mg 05/24/25 21:00 Metoclopramide Hcl 10mg/2ml Vial IVP 06/23/25 20:59 ACHS JORGE LUIS Ondansetron HCl 4 mg 05/24/25 17:30 05/24/25 17:57 Ondansetron 4mg Odt SL 05/24/25 17:31 4 mg ONCE ONE Administration Ondansetron HCl 4 mg 05/24/25 18:00 05/24/25 18:05 Ondansetron 4mg/2ml Vial IV 05/24/25 18:01 4 mg ONCE ONE Administration ORDERS Category Date Time Status CBC w/Auto Diff [Complete Blood Count Auto Diff] Stat Lab 05/24/25 18:06 Completed CMP [Comprehensive Metabolic Panel] Stat Lab 05/24/25 18:06 Completed HCG,Quantitative Stat Lab 05/24/25 18:06 Completed Lipase Stat Lab 05/24/25 18:06 Completed Urinalysis and Microscopic Stat Lab 05/24/25 17:55 Completed Urine Culture Stat Micro 05/24/25 17:55 Received Medical Decision Narrative: Initial impression of presenting illness: 20-year-old female is approximately 8 weeks with a confirmed intrauterine presents to the emergency department with complaints of abdominal pain, nausea, vomiting. She states that she has followed up with her OB provider for her hyperemesis gravidarum and given Phenergan however she reports that she still having vomiting despite taking the medication. She denies fevers or vaginal bleeding. Differential diagnosis includes but is not limited to: Electrolyte abnormality, dehydration, hyperemesis gravidarum, urinary tract infection, gastroenteritis, gastritis Patient arrives hemodynamically stable, afebrile, without respiratory distress with vital signs interpreted by myself. Initial physical exam reveals diffuse abdominal tenderness on palpation with normal active bowel sounds. No CVA tenderness noted. Rest of exam is unremarkable Initial diagnostic plan: Abdominal pain workup including normal saline bolus for hydration, Zofran for nausea Results from initial plan were reviewed and interpreted by myself, pertinent positives include: hCG greater than 15,000, white blood cell count 14.1, rest of laboratory studies were nonactionable. Analysis was positive for 3+ bacteria with 5-10 white blood cells per high-power field as well as 5-10 epithelial cells per high-power field. There was no blood noted. Interventions in the ED: Patient given normal saline bolus for hydration as well as Zofran for nausea. Patient continued to complain of vomiting after receiving Zofran and was then given Reglan and Benadryl. Patient was made aware of the results and the findings, upon reevaluation patient has remained stable throughout stay, symptoms have improved. Upon reevaluation patient's resting comfortably in her room and states she is feeling much better. She states that she feels well enough for discharge at this time. Consultation/discussion with other physicians: Discussed patient's presenting complaint as well as workup findings with ED attending Dr. Degroot Disposition: Reviewed finding today's workup with patient informed that she does have 3+ bacteria in her urine however she informed me that she is currently on Keflex for a known urinary tract infection. Recommended that she continue taking that antibiotic and that she will be notified when her urine culture results came back in the next few days if adjustments to the medication need to be made. Wrongly recommended that she contact her OB provider tomorrow to discuss treatment of her hyperemesis gravidarum to avoid repeated ED visits. Instructed her to return immediately to the emergency department if she developed inability to tolerate p.o., fevers, vaginal bleeding. Patient is agreeable to this plan of care. Patient made aware of findings and had a detailed discussion with symptomatic care and return precautions, patient voiced understanding. Critical Care Critical Care Time Critical Care Time: No
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
--- OUTSIDE RECORDS SUMMARY | 2025-05-24 17:40 | XMS_ITS | Clinical Summary ---
Author Organization [facility] Address [address] [place] [address] Care Team Providers Care Professor Of Theatre Name Role Phone Unavailable Primary Care Provider Unavailabl e Source Comments [facility] is fully rolled out with thefollowing exceptions:General Clinical Research [facility] Social History Tobacco Use Types [...]
--- OUTSIDE RECORDS SUMMARY | 2025-05-24 17:40 | XMS_ITS | Clinical Summary ---
Author Organization Healthcare Address [address] [place] [address] Care Team Providers Care Freight Rate Specialist Name Role Phone Haider Katherin Champ MORALES Primary Care Provider +1- [phone] Allergies No known active allergies Medications FLUoxetine [...] SDOH Screenings 2023 UKY-Adult SDOH Screenings 2023 [id number] Vaccine ( season) 2024 UKY-Influenza Vaccine (#1) [...] Insurance [facility] MEDICAID Arturo Lozano, [place] [id number] [facility] Advance Directives Documents on File Type Date Recorded Patient Mobile Pet Groomer Expl anation Power of Administrative Personal Assistant 08/12/2021 POA for An otf Care Teams Freight Rate Specialist Relationship Specialty Start Date End Date Katherin Maloney DO [address] [place] [facility] [address] [id number] PCP - General 02/01/21
--- OUTSIDE RECORDS SUMMARY | 2025-05-24 17:40 | XMS_ITS | Encounter Summary ---
Author Organization Healthcare Address [address] [place] [address] Care Team Providers Care Environmental Sampler Name Role Phone Katherin Maloney DO Primary Care Provider +1- [phone] Encounter Details Date Type Department Care Team (Late st Contact Info) Description 04/16/2023 Community [facility] Community Practice [address] [place] [address] Nica Rae DO [address] [place] [address] Chronic abdominal pain (Primary Dx) Social [...] documented as of this encounter Care Teams Environmental Sampler Relationship Specialty Start Date End Date Katherin Maloney DO [address] [place] [address] PCP - General 02/01/21 documented as of this encounter
--- OUTSIDE RECORDS SUMMARY | 2025-05-24 17:40 | XMS_ITS | Encounter Summary ---
Author Organization [facility] Address [address] [place] [id number] Care Team Providers Care Creative Consultant Name Role Phone Con Maloneyen Champ MORALES Primary Care Provider +1- [phone] Reason for Referral * Consultation (Routine) - Authorized Specialty Diagnoses / Procedures Referred By Denise hernandez Referred To Contact Nephrology Diagnoses Abnormal kidney function Dorothy Kaplan, HEATER HELPER [address] [place] [address] Phone: tel: fax: [facility] [place] Nephrology, Bone & Mineral Metabolism [address] [facility], [address] [place] [address] Phone: tel: fax: Referral ID Status Reason Start Date Expiration Date Visits Requested Visits Authorized [id number] Authorized Specialty Services Required 10/28/2024 04/29/2026 1 1 * Consultation (Routine) - Authorized Specialty Diagnoses / Procedures Referred By Denise hernandez Referred To Contact Endocrinology Diagnoses Acquired hypothyroidism Dorothy Kaplan, HEATER HELPER [address] [address] Phone: tel: fax: [facility] Endocrinology [address] [place] [address] Phone: tel: fax: Referral ID Status Reason Start Date Expiration Date Visits Requested Visits Authorized [id number] Authorized Specialty Services Required 10/28/2024 04/29/2026 1 1 Encounter Details Date Type Department Care Team (Latest Contact Info) Description 10/28/2024 [facility] Practice [address] [place] [address] Dorothy Kaplan APRN [address] [address] Acquired hypothyroidism (Primary Dx); Abnormal kidney function [...] documented as of this encounter Care Teams Creative Consultant Relationship Specialty Start Date End Date Katherin Maloney DO [address] [address] PCP - General 02/01/21 documented as of this encounter
--- OUTSIDE RECORDS SUMMARY | 2025-05-24 17:40 | XMS_ITS | Clinical Summary ---
Author Organization [facility] Address [address] [place] [address] Phone Care Team Providers Care Director Business Management Name Role Phone Kuldeep Harris MD Primary Care Provider [phone] Allergies No known active allergies Medications LEVOthyroxine [...] 2005 HPV Completed 10/19/2017, 03/21, 02/20/2016 Insurance [facility] [id number] Care Teams Director Business Management Relationship Specialty Start Date End Date Kuldeep Harris MD [address] [place] [id number] PCP - General Internal Medicine-Adolescent Medicine 12/15/23
[2025-05-24] MEDS: ONDANSETRON 4MG ODT 4 MG SL (17:57)
[2025-05-24 18:01] LABS: Microscopic, Urine URINE MICROSCOPIC (MICROSCOPIC)
[2025-05-24] MEDS: ONDANSETRON 4MG/2ML VIAL 4 MG IV (18:05)
[2025-05-24 18:17] LABS: Hematocrit 40.0 % (37.0-47.0); Hemoglobin 14.0 g/dL (12.2-16.2); Immature Granulocytes % 0.3 %; Mean Corpuscular HGB Conc 35.0 g/dL (31.8-35.4); Mean Corpuscular Hemoglobin 29.9 pg (27.0-31.2); Mean Corpuscular Volume 85.3 fl (81-99); Nucleated Red Blood Cells % 0 %; Platelet Count 255 K/mm3 (142-424); Red Blood Count 4.69 M/mm3 (4.20-5.40); Red Cell Distribution Width-SD 39.2 fL; White Blood Count 14.1 K/mm3 (4.5-13.0)
[2025-05-24] MEDS: 0.9 % SODIUM CHLORIDE 1000ML 1,000 ML 999 ML IV (18:23)
[2025-05-24 18:42] LABS: Chloride 104 mmol/L (98-107)
[2025-05-24 18:43] LABS: Albumin Level 5.0 g/dl (3.5-5.0); Potassium 3.5 mmoL/L (3.5-5.1); Sodium 137 mmol/L (136-145)
[2025-05-24 18:44] LABS: Bilirubin,Urine Negative (Negative); Color,Urine YELLOW (Yellow); Glucose,Urine (UA) Negative (Negative); Ketones,Urine 2+ (Negative); Leukocyte Esterase,Urine Negative (Negative); PH,Urine 6.5 (5.0-8.5); Protein,Urine Negative (Negative); Specific Gravity, Urine <= 1.005 (1.005-1.030); Urobilinogen,Urine 0.2 EU/dl (0.2)
[2025-05-24 18:45] LABS: Lipase 70 U/L (23-300)
[2025-05-24 18:46] LABS: Alanine Aminotransferase 16 U/L (12-78); Albumin/Globulin Ratio 1.9 (1.1-1.8); Alkaline Phosphatase 52 U/L (38-126); Anion Gap 13.5 mEq/L (5-15); Aspartate Amino Transferase 32 U/L (14-36); Bilirubin,Total 0.7 mg/dl (0.2-1.3); Blood Urea Nitrogen 7 mg/dl (7-17); Carbon Dioxide 23 mmol/L (22.0-30.0); Creatinine Clearance Estimated 121 mL/min (50-200); Creatinine,Serum 0.70 mg/dl (0.52-1.04); Estimated Glomerular Filt Rate 107 ml/min (>60); GFR (African American) 129 ML/MIN (>60); Globulin 2.7 g/dL (1.3-3.2); Total Protein,Serum 7.7 g/dl (6.3-8.2)
[2025-05-24 18:47] LABS: Calcium 9.6 mg/dl (8.4-10.2); Glucose 88 mg/dl (74-100)
[2025-05-24 18:51] LABS: Bacteria,Urine 3+ /lpf
[2025-05-24] MEDS: METOCLOPRAMIDE HCL 10MG/2ML VIAL 10 MG IVP (19:19)
[2025-05-24 20:34] VITALS: BP 107/60; PULSE 65; RESP 18; TEMP 36.8; O2SAT 99
== END 2025-05-24 20:34 | disposition home or self-care (01) ==
PROVIDERS: Nurse Practitioner Family; Emergency Provider Student in an Organized Health Care Education/Training Program; PCP Internal Medicine Adolescent Medicine
DX: O21.0 Mild hyperemesis gravidarum (principal); O23.41 Unspecified infection of urinary tract in pregnancy, first trimester; R10.84 Generalized abdominal pain; Z3A.08 8 weeks gestation of pregnancy
CPT/HCPCS: 80053; 81001; 83690; 84702; 85025; 87086; 96361; 96374; 96375; 96376; 99284; J1200; J2405; J2765; J7030; Q0162

== ENCOUNTER 2025-05-26 11:10 | Observation (INO) | payer OTHER, SELFPAY ==
--- OUTSIDE RECORDS SUMMARY | 2006-11-09 01:00 | XMS_ITS | Encounter Summary ---
Author Organization [facility] Address [address] [place] [address] Care Team Providers Care [employer] Advisor Name Role Phone Unavailable Primary Care Provider Unavailabl e Encounter Details Date Type Department Care Team (Late st Contact Info) Description 11/09/2006 Hospital Encounter [facility] Division of Cardiology [address] [place] [phone] Social History Tobacco Use Types Packs/Day [...]
--- OUTSIDE RECORDS SUMMARY | 2024-12-24 17:30 | XMS_ITS ---
Author Organization [facility] PE D ARIK Address [address] [facility] [address] [facility] [address] [place], [place] [address] Care Team Providers Care Art Sales Consultant Name Role Phone Kuldeep Harris Primary Care Provider Dorothy Kaplan Unavailable [phone] Migration, Provider Unavailable Unavailable REASON FOR VISIT Mult[facility] To [facility] Conversion Encounter Medications Medication SIG (Take, Route, Frequency, Duration) Notes Start Date End Date Status Famotidine 40 MG 1 tab(s) orally once a day (at bedtime); Duration: 14 days 10/26/2023 Active Levothyroxine Sodium 150 MCG 1 tab(s) or ally once a day; Duration: 30 days 12/06/2024 Active Encounters Encounter Location Date Provider Diagnosis [facility] PED ARIK [address] [facility] [address] [place], [place] [address] 12/24/2024 Provider Migration Plan Of Treatment Medication Medication Name Sig Start Date Stop Date Notes Levothyroxine Sodium 150 MCG 1 tab(s) or ally once a day; Duration: 30 days 12/06/2024 Progress Notes * Magaly NATIONOB:2005 (20 yo F)Acc No.[id number]:12/24/2024 Patient: Liz DIAZ Provider: Chey medina Migration :2005 A ge:19 Y S ex:Female Date:12/24/2024 Address:[address] [place], [id number] Pcp:Kuldeep Harris Subjective: * Chief Complaints: * 1 . [facility] To [facility] Conversion Encounter. * Medical History: * Medications: T aking Famotidine 40 MG Tablet 1 tab(s) orally once a day (at bedtime) Objective: * Vitals: Assessment: Plan: * Treatment: * * Electronic signature of Jona solis Migration on 05/26/2025 at 11:16 AM EDT Sign off status: Pending * Provider: Chey medina Migration Date: 12/24/2024 Generated for Kimi mcknight/Niraj/Arpitsmitting on: 0 05/26/2025 11:16 AM EDT
[2025-05-26] VITALS (10 sets, daily range): BP systolic 98–120; BP diastolic 49–77; PULSE 55–81; RESP 16–19; TEMP 36.8–36.9; O2SAT 97–100; BMI 23.3
--- OUTSIDE RECORDS SUMMARY | 2025-05-26 11:16 | XMS_ITS | Encounter Summary ---
Author Organization [facility] Address [address] [place] [address] [id number] Care Team Providers Care Nurses Supervisor Name Role Phone Con Malnoeyen Champ MORALES Primary Care Provider +1- [phone] Reason for Referral * Consultation (Routine) - Authorized Specialty Diagnoses / Procedures Referred By Denise hernandez Referred To Contact Nephrology Diagnoses Abnormal kidney function Dorothy Kaplan, BASE FILLER OPERATOR [address] [place] [address] Phone: tel: fax: [facility] Nephrology, Bone & Mineral Metabolism [address] [facility], [address] [place] [address] Phone: tel: fax: Referral ID Status Reason Start Date Expiration Date Visits Requested Visits Authorized [id number] Authorized Specialty Services Required 10/28/2024 04/29/2026 1 1 * Consultation (Routine) - Authorized Specialty Diagnoses / Procedures Referred By Denise hernandez Referred To Contact Endocrinology Diagnoses Acquired hypothyroidism Dorothy Kaplan, BASE FILLER OPERATOR [address] [address] Phone: tel: fax: [facility] Endocrinology [address] [place] [address] Phone: tel: fax: Referral ID Status Reason Start Date Expiration Date Visits Requested Visits Authorized [id number] Authorized Specialty Services Required 10/28/2024 04/29/2026 1 1 Encounter Details Date Type Department Care Team (Latest Contact Info) Description 10/28/2024 [facility] Practice [address] [place] [address] Dorothy Kaplan APRN [address] [address] Acquired hypothyroidism (Primary Dx); Abnormal kidney function [...] documented as of this encounter Care Teams Nurses Supervisor Relationship Specialty Start Date End Date Katherin Maloney DO [address] [address] PCP - General 02/01/21 documented as of this encounter
--- OUTSIDE RECORDS SUMMARY | 2025-05-26 11:16 | XMS_ITS | Clinical Summary ---
Author Organization Healthcare Address [address] [place] [address] Care Team Providers Care Events Assistant Name Role Phone Haider Katherin Champ MORALES Primary Care Provider +1- [phone] Allergies No known active allergies Medications FLUoxetine [...] SDOH Screenings 2023 UKY-Adult SDOH Screenings 2023 [id number] Vaccine ( season) 2024 UKY-Influenza Vaccine (#1) [...] patient's age to complete this topic Insurance [facility] MEDICAID [facility] MEDICAID Arturo Lozano, [place] [address] [facility] MEDICAID Advance Directives Documents on File Type Date Recorded Patient Park Keeper Expl anation Power of Education Administrator 08/12/2021 POA for An otf Care Teams Events Assistant Relationship Specialty Start Date End Date Katherin Maloeny DO [address] [facility] [address] [id number] PCP - General 02/01/21
--- OUTSIDE RECORDS SUMMARY | 2025-05-26 11:16 | XMS_ITS | Clinical Summary ---
Author Organization [facility] Address [address] [place] [address] Care Team Providers Care Supervisor Multifocal Lens Name Role Phone Unavailable Primary Care Provider Unavailabl e Source Comments [facility] is fully rolled out with thefollowing exceptions:General Clinical Research [facility] Social History Tobacco Use Types [...] of 3 - 19+ 3-dose series) 01/10/2024 AMB SEASONAL FLU VACCINE (#1) 05/22/2025 COVID-19 Vaccine (1 - 2023-2 5 season) 2025 HIB IMMUNIZATION Aged Out No longer e [...]
--- OUTSIDE RECORDS SUMMARY | 2025-05-26 11:16 | XMS_ITS | Clinical Summary ---
Author Organization [facility] Address [address] [place] [address] Phone Care Team Providers Care Radio Communications Superintendent Name Role Phone Kuldeep Harris MD Primary Care Provider [phone] Allergies No known active allergies Medications LEVOthyroxine [...] Standard) 2021 COVID-19 Vaccine (1 - season) 2025 Influenza Vaccine (#1) 2025 , 07/10/2021, 06/29/2020, Additional history exists DTaP/TDaP/Td (7 - Td or Tdap) 02/19/2026 02/20/2016, 02/01/2010, 02/01/2010, Additional history exists Pneumococcal Vaccine 0-49 Aged Out 2005, 2005, 2005 No longer eligible based on patient's age to complete this topic Hepatitis B Vaccine Completed 01/12/2006, 2005, 2005 HPV Completed 10/19/2017, 03/21, 02/20/2016 Insurance [facility] [id number] Care Teams Radio Communications Superintendent Relationship Specialty Start Date End Date Kuldeep Harris MD [address] [place] [phone] PCP - General Internal Medicine-Adolescent Medicine 12/15/23
--- OUTSIDE RECORDS SUMMARY | 2025-05-26 11:16 | XMS_ITS | Encounter Summary ---
Author Organization Healthcare Address [address] [place] [address] Care Team Providers Care Cloth Feeder Name Role Phone Katherin Maloney DO Primary Care Provider +1- [phone] Encounter Details Date Type Department Care Team (Late st Contact Info) Description 04/16/2023 Community [facility] [address] [place] [address] Nica Rae DO [address] [place] [address] Chronic abdominal pain (Primary Dx) Social [...] as of this encounter Care Teams Cloth Feeder Relationship Specialty Start Date End Date Katherin Maloney DO [address] [place] [address] PCP - General 02/01/21 documented as of this encounter
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
[2025-05-26 11:25] LABS: Microscopic, Urine URINE MICROSCOPIC (MICROSCOPIC)
[2025-05-26 11:28] LABS: Color,Urine YELLOW (Yellow); Glucose,Urine (UA) Negative (Negative); Ketones,Urine 3+ (Negative); Leukocyte Esterase,Urine Negative (Negative); PH,Urine 6.0 (5.0-8.5); Protein,Urine TRACE (Negative); Specific Gravity, Urine 1.025 (1.005-1.030); Urobilinogen,Urine 0.2 EU/dl (0.2)
[2025-05-26 11:33] LABS: Hematocrit 40.2 % (37.0-47.0); Hemoglobin 14.3 g/dL (12.2-16.2); Immature Granulocytes % 0.5 %; Mean Corpuscular HGB Conc 35.6 g/dL (31.8-35.4); Mean Corpuscular Hemoglobin 30.2 pg (27.0-31.2); Mean Corpuscular Volume 85.0 fl (81-99); Nucleated Red Blood Cells % 0 %; Platelet Count 234 K/mm3 (142-424); Red Blood Count 4.73 M/mm3 (4.20-5.40); Red Cell Distribution Width-SD 39.3 fL; White Blood Count 10.9 K/mm3 (4.5-13.0)
[2025-05-26 11:42] LABS: Bilirubin,Urine 1+ (Negative)
[2025-05-26] MEDS: LACTATED RINGERS 1000ML 500 ML 999 ML IV (11:46)
--- NOTE | 2025-05-26 11:46 | ED_ITS ---
Discharge Plan Disposition Patient Disposition: Admitted Condition: Good Clinical Impressions Clinical Impression: Hyperemesis gravidarum Discharge ED Provider: Mickey Brown General Adult HPI General Chief complaint: Nausea/Vomiting/Diarrhea Stated complaint: 8 weeks - vomiting, sent by Ilya Hector Time Seen by Provider: 05/26/25 11:19 Mode of Arrival: Ambulatory Source of Information: Patient Description of Symptoms (Recalled from ER Triage Doc. by RN): Patient states she is approx 8 weeks and states she has been unable to keep anything down for the last few days. Patient states she has phenergan at home to take but hasn't taken any since yesterday, and has a prescription for Reglan at the pharmacy but has not picked it up yet. Due date 01/03/26. G1, P0. History of Present Illness HPI narrative: This is a 20-year-old female patient, with past medical history of hypothyroidism, anxiety, depression, who is presented to the emergency department today for evaluation of intractable nausea and vomiting. Patient is currently 8 weeks and has been experiencing hyperemesis throughout the week. She was seen here in our emergency department on 05/13/2025 for similar symptoms. At that time she was treated with Reglan, Zofran, and Benadryl IV as well as 1 L of lactated Ringer's. She had resolution of symptoms and was discharged home. She did have asymptomatic bacteriuria of so she was also treated with Keflex. She states that her symptoms have returned and she has been vomiting for several days. She states that the last time she vomited she had a coin sized speck of blood in her vomit. She is having some epigastric abdominal discomfort. No diarrhea, no vaginal discharge or vaginal bleeding, and she denies dysuria/hematuria. Related Data Home Medications ?Medication ?Instructions ?Recorded ?Confirmed levothyroxine 150 mcg tablet 150 mcg PO DAILY 05/26/25 05/26/25 Previous Rx's ?Medication ?Instructions ?Recorded vits no.126-ferrous fum 1 tab PO DAILY #30 ta bs 05/25/25 28 mg iron-folic acid 800 mcg tablet (Classic ) Allergies Allergy/AdvReac Type Severity Reaction Status Date / Time mushroom Allergy Rash Verified 05/23/25 11:05 [facility] Disclaimer: The information contained in this section may have been updated after the patient was seen, as this information can be updated by other users. Medical History (Updated 05/26/25 @ 14:22 by Ramya De León RN) Encounter for related examination in first trimester Marijuana use Serous otitis media Dysfunction of left eustachian tube Tinnitus PTSD (post-traumatic stress disorder) GERD (gastroesophageal reflux disease) Hypothyroid Suicidal intent Intentional acetaminophen overdose Suicidal ideation Pain in female pelvis Surgical History Status post arthroscopy of left shoulder Status post shoulder surgery H/O adenoidectomy H/O thyroidectomy History of tonsillectomy and adenoidectomy History of placement of ear tubes Family History Other No significant family history Social History Smoking Status: Current every day smoker tobacco type: e-cigarettes alcohol intake: never substance use type: marijuana current occupational status: previously employed Travel in the last 8 weeks?: None number of children: 0 caffeine: No Have you lived/traveled outside US in past 30 days?: No Contact w/someone who lives/traveled outside US past 30 days?: No Exposure to someone with infectious disease in past 14 days?: No Do you have a fever (greater than 100.4 F or 38 C)?: No Have you tested positive for COVID-19?: No Exposed to someone with COVID-19 in past 14 days?: No Do you have a sore throat?: No Do you have a cough?: No Do you have any weakness?: No Do you have any diarrhea?: No Are you experiencing any unusual bleeding?: No Do you have any muscle aches/pain?: No Do you have any abdominal pain?: No Are you experiencing loss of taste or smell?: No Other Medical History Have you received the Flu Vaccine for this season: No Have you received the Pneumonia Vaccine: No ROS Obtained: Yes Systems reviewed as appropriate & no additional complaints except as documented Physical Exam General General appearance: other (See MDM) Respiratory Respiratory exam: Present other (See MDM) Cardiovascular Cardiovascular exam: Present other (See MDM) Neurological Exam Neurological exam: Present other (See MDM) Medical Decision Making Medical Records Medical records reviewed: Yes I reviewed the patient's medical records. Screening: Per USPSTF and CDC recommendations, given the prevalence of disease in our region, it is our hospital?s policy to screen for HIV and viral Hepatitis for all patients aged 18 and over and those with ongoing risk factors. Rick Inquiry Pt receiving controlled substance: No Rick was queried for this patient: No Vital Signs: 05/26/25 11:17 05/26/25 11:33 05/26/25 11:48 Temperature 98.5 F Temperature Source Oral Pulse Rate 62 Pulse Rate [Right Brachial] 79 Respiratory Rate 16 Blood Pressure 110/49 L Blood Pressure [Right Arm] 120/70 Blood Pressure Mean [Right Arm] 86 Blood Pressure Source [Right Arm] Automatic Cuff Blood Pressure Position [Right Arm] Sitting 02 Sat by Pulse Oximetry 100 100 100 Oxygen Delivery Method Room Air Room Air Room Air 05/26/25 12:01 05/26/25 12:30 05/26/25 13:00 Temperature Temperature Source Pulse Rate 67 81 73 Pulse Rate [Right Brachial] Respiratory Rate Blood Pressure 108/67 L 101/54 L 105/65 L Blood Pressure [Right Arm] Blood Pressure Mean [Right Arm] Blood Pressure Source [Right Arm] Blood Pressure Position [Right Arm] 02 Sat by Pulse Oximetry 100 100 100 Oxygen Delivery Method Room Air 05/26/25 13:30 Temperature Temperature Source Pulse Rate 68 Pulse Rate [Right Brachial] Respiratory Rate Blood Pressure Blood Pressure [Right Arm] Blood Pressure Mean [Right Arm] Blood Pressure Source [Right Arm] Blood Pressure Position [Right Arm] 02 Sat by Pulse Oximetry 99 Oxygen Delivery Method Lab Data Lab Results 05/26/25 11:14: Urine Color Yellow, Urine Appearance Clear, Urine pH 6.0, Ur Specific [place] 1.025, Urine Protein Trace, Urine Glucose (UA) Negative, Urine Ketones 3+, Urine Blood Negative, Urine Nitrate Negative, Urine Bilirubin 1+ A, Urine Urobilinogen 0.2, Ur Leukocyte Esterase Negative, Urine RBC None, Urine WBC 3-5, Ur Squamous Epith Cells 3-5, Urine Bacteria Trace 05/26/25 11:26: WBC 10.9, RBC 4.73, Hgb 14.3, Hct 40.2, MCV 85.0, MCH 30.2, MCHC 35.6 H, RDW 12.8, Plt Count 234, MPV 10.0, Neut % (Auto) 71.8, Lymph % (Auto) 19.5, [place] % (Auto) 7.3, Eos % (Auto) 0.2, Baso % (Auto) 0.7, Neut # (Auto) 7.8, Lymph # (Auto) 2.1, [place] # (Auto) 0.8, Eos # (Auto) 0.0, Baso # (Auto) 0.1, S odium 135 L, Potassium 3.7, Chloride 103, Carbon Dioxide 21 L, Anion Gap 14.7, BUN 7, Creatinine 0.70, Estimated Creat Clear 121, Estimated GFR 107, Est GFR ( Amer) 129, Glucose 84, Calcium 9.5, Total Bilirubin 0.8, AST 44 H D, A LT 29 D, Alkaline Phosphatase 52, Total Protein 7.9, Albumin 5.0, Globulin 2.9, Albumin/Globulin Ratio 1.7, Lipase 110, Serum HCG, Qual Positive, Acetone Level None detected 05/26/25 11:26 05/26/25 11:26 Orders (Tests/Meds): ED MEDICATIONS Generic Name Dose Route Start Last Admin Trade Name Freq PRN Reason Stop Dose Admin Acetaminophen 1,000 mg 05/26/25 15:15 Acetaminophen 500mg Tab PO 06/25/25 15:14 Q6HP PRN Fever or Mild Pain (1-3) Al Hydrox/Mg Hydrox/Simethicone 30 ml 05/26/25 15:15 Aluminum/Magnesium/Simethicone 30ml Udc PO 06/25/25 15:14 Q4HP PRN GI Upset Lactated Ringer's 1,000 mls @ 125 mls/hr 05/26/25 15:15 Lactated Ringer's 1000 Ml Bag IV 05/26/25 23:14 .Q8H ONE Multivitamins 10 ml/ Thiamine 1,015 mls @ 125 mls/hr 05/26/25 16:00 05/26/25 15:45 HCl 100 mg/ Magnesium Sulfate IV 06/25/25 15:59 125 mls/hr 2 gm/ Lactated Ringer's Q8H JORGE LUIS Administration Metoclopramide HCl 10 mg 05/26/25 16:30 05/26/25 16:54 Metoclopramide Hcl 10mg/2ml Vial IVP 06/25/25 16:29 10 mg ACHS JORGE LUIS Administration Promethazine HCl 12.5 mg 05/26/25 15:12 Promethazine Hcl 25mg/Ml 1ml Vial IV 06/25/25 15:11 Q4HP PRN NAUSEA AND VOMITING Discontinued Medications Generic Name Dose Route Start Last Admin Trade Name Daniel PRN Reason Stop Dose Admin Lactated Ringer's 500 mls @ 999 mls/hr 05/26/25 11:40 05/26/25 12:30 Lactated Ringer's 1000 Ml Bag IV 05/26/25 12:10 Infused .Q31M ONE Infusion Multivitamins 10 ml/ Thiamine 1,015 mls @ 125 mls/hr 05/26/25 15:15 HCl 100 mg/ Magnesium Sulfate IV 06/25/25 15:14 2 gm/ Lactated Ringer's Q8H JORGE LUIS ORDERS Category Date Time Status Acetone, Serum (Rapid) Stat Lab 05/26/25 11:26 Completed CBC w/Auto Diff [Complete Blood Count Auto Diff] Stat Lab 05/26/25 11:26 Completed CMP [Comprehensive Metabolic Panel] Stat Lab 05/26/25 11:26 Completed HCG Qualitative, Serum Stat Lab 05/26/25 11:26 Completed Lipase Stat Lab 05/26/25 11:26 Completed UA [Urinalysis and Microscopic] Stat Lab 05/26/25 11:14 Completed ECG Data Tracing #1: I reviewed this ECG and interpreted as documented below: EKG personally interpreted by me demonstrates sinus bradycardia with a rate of 56 bpm, normal axis, no [place] prolongation, narrow QRS, no QTc prolongation. No ST elevation or depression. No overt signs of ischemia. There is sinus arrhythmia present. Medical Decision Narrative: In summary, this is a 20-year-old female patient who is A1 currently 8 weeks who is presenting to the emergency department at the direction of her CHEMICAL DEPENDENCY NURSE for evaluation of suspected hyperemesis gravidarum. Comorbidities include a past medical history of anxiety, depression, and hypothyroidism. On initial evaluation of the patient they were resting comfortably in no acute distress and nontoxic in appearance. They are hemodynamically stable, saturating well room air, and are neurologically intact. On physical examination the patient she has dry mucous membranes. Heart and lungs are clear to auscultation bilaterally. She has epigastric abdominal tenderness to palpation with no rebound or evidence of bel peritonitis. She has no lower extremity erythema or edema. Differential diagnose includes hyperemesis gravidarum, ketosis, dehydration, pancreatitis, electrolyte derangement, acute kidney injury, among others. Workup was initiated with hematologic labs as well as an EKG. Initial inventions have included 10 mg of metoclopramide, 1 L of lactated Ringer's. Labs personally turbid by me demonstrates no leukocytosis or evidence of anemia. There is no electrolyte derangements or evidence of acute kidney injury. Urinalysis does demonstrate 3+ ketones which raises my concern for starvation ketosis associated with hyperemesis gravidarum. No imaging was indicated for this patient's workup. On repeat assessment after 1 L of lactated Ringer's and 10 mg of Reglan the patient did appear better hydrated, and she was willing to try to tolerate oral intake. We provided the patient with food and drink she began experiencing recurrent vomiting. At this time I felt that she would be best served by admission. I had an interactive discussion with the CHEMICAL DEPENDENCY NURSE service who agreed to evaluate the patient in the emergency department. After our discussion of their evaluation they have asked that the patient be admitted to the labor and delivery floor. Patient was admitted in stable condition. Critical Care Critical Care Time Critical Care Time: No
[2025-05-26] MEDS: METOCLOPRAMIDE HCL 10MG/2ML VIAL 10 MG IVP ×3 (11:49→21:02)
[2025-05-26 11:54] LABS: Bacteria,Urine Trace /lpf
--- NOTE | 2025-05-26 12:03 | ECG_ITS ---
APPROVED REPORT Exam: Resting ECG HR:56 bpm ECG Measurements Heart Rate 56 AXES ME 150 P 65 QRSd 109 QRS 51 QT 412 T 34 QTc 403 Conclusion Sinus bradycardia with sinus arrhythmia Normal axis Normal intervals No STEMI Electronically signed by : Mickey Brown, 05/26/2025 17:36:31
[2025-05-26 13:10] LABS: Albumin Level 5.0 g/dl (3.5-5.0); Chloride 103 mmol/L (98-107); Potassium 3.7 mmoL/L (3.5-5.1); Sodium 135 mmol/L (136-145)
[2025-05-26 13:13] LABS: Alanine Aminotransferase 29 U/L (12-78); Albumin/Globulin Ratio 1.7 (1.1-1.8); Alkaline Phosphatase 52 U/L (38-126); Anion Gap 14.7 mEq/L (5-15); Aspartate Amino Transferase 44 U/L (14-36); Bilirubin,Total 0.8 mg/dl (0.2-1.3); Blood Urea Nitrogen 7 mg/dl (7-17); Calcium 9.5 mg/dl (8.4-10.2); Carbon Dioxide 21 mmol/L (22.0-30.0); Creatinine Clearance Estimated 121 mL/min (50-200); Creatinine,Serum 0.70 mg/dl (0.52-1.04); Estimated Glomerular Filt Rate 107 ml/min (>60); GFR (African American) 129 ML/MIN (>60); Globulin 2.9 g/dL (1.3-3.2); Glucose 84 mg/dl (74-100); HCG Qualitative, Serum Positive (Negative); Total Protein,Serum 7.9 g/dl (6.3-8.2)
--- NOTE | 2025-05-26 13:23 | PC.NURSE ---
pt provided sandwhich, chips and drink
--- NOTE | 2025-05-26 13:40 | PC.NURSE ---
PT DID NOT TOLERATE SANDWICH OR DRINK, NOTIFIED OB RESIDENT PROGRAM SPECIALIST PAGED DR MONTERROSO SPEAKING WITH DR JOHNSON
--- NOTE | 2025-05-26 13:44 | PC.NURSE ---
FERRY ENGINEER NOTIFIED OF ADMISSION
--- NOTE | 2025-05-26 14:12 | PC.NURSE ---
report called to norbert on second floor
[2025-05-26 15:03] LABS: Lipase 110 U/L (23-300)
[2025-05-26 15:16] LABS: Acetone, Serum (Rapid) None Detected (None Detect)
[2025-05-26] MEDS: MVI, ADULT NO.1 WITH VIT K 10 ML, THIAMINE HCL 100 MG, MAGNESIUM SULFATE 2 GM in LACTAT... 125 ML IV (15:45)
[2025-05-26] MEDS: PROMETHAZINE HCL 25MG/ML 1ML VIAL 12.5 MG IV (18:40)
[2025-05-26] MEDS: LACTATED RINGERS 1000ML 1,000 ML 125 ML IV (23:54)
[2025-05-27] MEDS: PROMETHAZINE HCL 25MG/ML 1ML VIAL 12.5 MG IV (04:16)
[2025-05-27 04:35] VITALS: BP 113/67; PULSE 74; RESP 18; TEMP 36.8; O2SAT 100
[2025-05-27] MEDS: METOCLOPRAMIDE HCL 10MG/2ML VIAL 10 MG IVP ×2 (06:12→10:52)
[2025-05-27 06:37] LABS: Immature Granulocytes % 0.4 %; Nucleated Red Blood Cells % 0 %
[2025-05-27 06:40] LABS: Hematocrit 33.6 % (37.0-47.0); Mean Corpuscular HGB Conc 34.2 g/dL (31.8-35.4); Mean Corpuscular Hemoglobin 29.5 pg (27.0-31.2); Mean Corpuscular Volume 86.2 fl (81-99); Platelet Count 188 K/mm3 (142-424); Red Blood Count 3.90 M/mm3 (4.20-5.40); Red Cell Distribution Width-SD 40.0 fL; White Blood Count 12.0 K/mm3 (4.5-13.0)
[2025-05-27 06:41] LABS: Hemoglobin 11.5 g/dL (12.2-16.2)
[2025-05-27 06:49] LABS: Alanine Aminotransferase 27 U/L (12-78); Albumin Level 3.7 g/dl (3.5-5.0); Albumin/Globulin Ratio 1.6 (1.1-1.8); Alkaline Phosphatase 43 U/L (38-126); Anion Gap 10.5 mEq/L (5-15); Aspartate Amino Transferase 32 U/L (14-36); Bilirubin,Total 0.6 mg/dl (0.2-1.3); Blood Urea Nitrogen 5 mg/dl (7-17); Calcium 8.3 mg/dl (8.4-10.2); Carbon Dioxide 22 mmol/L (22.0-30.0); Chloride 106 mmol/L (98-107); Creatinine Clearance Estimated 121 mL/min (50-200); Creatinine,Serum 0.70 mg/dl (0.52-1.04); Estimated Glomerular Filt Rate 107 ml/min (>60); GFR (African American) 129 ML/MIN (>60); Globulin 2.3 g/dL (1.3-3.2); Glucose 68 mg/dl (74-100); Potassium 3.5 mmoL/L (3.5-5.1); Sodium 135 mmol/L (136-145); Total Protein,Serum 6.0 g/dl (6.3-8.2)
[2025-05-27] MEDS: LEVOTHYROXINE 150MCG (0.15MG)TAB 150 MCG PO (08:40)
[2025-05-27] MEDS: MVI, ADULT NO.1 WITH VIT K 10 ML, THIAMINE HCL 100 MG, MAGNESIUM SULFATE 2 GM in LACTAT... 125 ML IV (08:41)
--- NOTE | 2025-05-27 10:25 | P.HP_ITS ---
History of Present Illness *Admission Date: 05/26/25 *Reason for visit:: Hyperemesis gravidarum, hypothyroidism *History of present illness: This is a 20-year-old female patient, with past medical history of hypothyroidism, anxiety, depression, who is presented to the emergency department today for evaluation of intractable nausea and vomiting. Patient is currently 8 weeks and has been experiencing hyperemesis throughout the week. She was seen here in our emergency department on 05/13/2025 for similar symptoms. At that time she was treated with Reglan, Zofran, and Benadryl IV as well as 1 L of lactated Ringer's. She had resolution of symptoms and was discharged home. She did have asymptomatic bacteriuria of so she was also treated with Keflex. She states that her symptoms have returned and she has been vomiting for several days. She states that the last time she vomited she had a coin sized speck of blood in her vomit. She is having some epigastric abdominal discomfort. No diarrhea, no vaginal discharge or vaginal bleeding, and she denies dysuria/hematuria. She says that she has lost about 9 pounds in this . [facility] Disclaimer: The information contained in this section may have been updated after the patient was seen, as this information can be updated by other users. Medical History Encounter for related examination in first trimester Marijuana use Serous otitis media Dysfunction of left eustachian tube Tinnitus PTSD (post-traumatic stress disorder) GERD (gastroesophageal reflux disease) Hypothyroid Suicidal intent Intentional acetaminophen overdose Suicidal ideation Pain in female pelvis Surgical History Status post arthroscopy of left shoulder Status post shoulder surgery H/O adenoidectomy H/O thyroidectomy History of tonsillectomy and adenoidectomy History of placement of ear tubes Family History No significant family history Social History Smoking Status: Current every day smoker tobacco type: e-cigarettes alcohol intake: never substance use type: marijuana current occupational status: previously employed Travel in the last 8 weeks?: None number of children: 0 caffeine: No Have you lived/traveled outside US in past 30 days?: No Contact w/someone who lives/traveled outside US past 30 days?: No Exposure to someone with infectious disease in past 14 days?: No Do you have a fever (greater than 100.4 F or 38 C)?: No Have you tested positive for COVID-19?: No Exposed to someone with COVID-19 in past 14 days?: No Do you have a sore throat?: No Do you have a cough?: No Do you have any weakness?: No Do you have any diarrhea?: No Are you experiencing any unusual bleeding?: No Do you have any muscle aches/pain?: No Do you have any abdominal pain?: No Are you experiencing loss of taste or smell?: No Other Medical History Have you received the Flu Vaccine for this season: No Have you received the Pneumonia Vaccine: No Review of Systems Review of Systems Review of systems:: pertinent systems reviewed and negative unless documented below Meds Home Medications and Allergies Home Medications ?Medication ?Instructions ?Recorded ?Confirmed ?Type vits no.126-ferrous fum 1 tab PO DAILY #30 ta bs 05/25/25 05/26/25 Rx 28 mg iron-folic acid 800 mcg tablet (Classic ) levothyroxine 150 mcg tablet 150 mcg PO DAILY 05/26/25 05/26/25 History New Prescriptions to Start Prescriptions: Allergies Allergy/AdvReac Type Severity Reaction Status Date / Time mushroom Allergy Rash Verified 05/23/25 11:05 Exam Data for Last 24 hours Vital signs and Labs for Last 24 Hours: Temp Pulse Resp BP Pulse Ox O2 Del Method 98.3 F 74 18 113/67 100 Room Air 05/27/25 04:35 05/27/25 04:35 05/27/25 04:35 05/27/25 04:35 05/27/25 04:35 05/27/25 04:35 Laboratory Results - last 24 hr 05/26/25 11:14: Urine Color Yellow, Urine Appearance Clear, Urine pH 6.0, Ur Specific [place] 1.025, Urine Protein Trace, Urine Glucose (UA) Negative, Urine Ketones 3+, Urine Blood Negative, Urine Nitrate Negative, Urine Bilirubin 1+ A, Urine Urobilinogen 0.2, Ur Leukocyte Esterase Negative, Urine RBC None, Urine WBC 3-5, Ur Squamous Epith Cells 3-5, Urine Bacteria Trace 05/26/25 11:26: WBC 10.9, RBC 4.73, Hgb 14.3, Hct 40.2, MCV 85.0, MCH 30.2, MCHC 35.6 H, RDW 12.8, Plt Count 234, MPV 10.0, Neut % (Auto) 71.8, Lymph % (Auto) 19.5, [place] % (Auto) 7.3, Eos % (Auto) 0.2, Baso % (Auto) 0.7, Neut # (Auto) 7.8, Lymph # (Auto) 2.1, [place] # (Auto) 0.8, Eos # (Auto) 0.0, Baso # (Auto) 0.1, Sodium 135 L, Potassium 3.7, Chloride 103, Carbon Dioxide 21 L, Anion Gap 14.7, BUN 7, Creatinine 0.70, Estimated Creat Clear 121, Estimated GFR 107, Est GFR ( Amer) 129, Glucose 84, Calcium 9.5, Total Bilirubin 0.8, AST 44 H D, ALT 29 D, Alkaline Phosphatase 52, Total Protein 7.9, Albumin 5.0, Globulin 2.9, Albumin/Globulin Ratio 1.7, Lipase 110, Serum HCG, Qual Positive, Acetone Level None detected 05/27/25 06:30: WBC 12.0, RBC 3.90 L, Hgb 11.5 L D, Hct 33.6 L, MCV 86.2, MCH 29.5, MCHC 34.2, RDW 12.9, Plt Count 188, MPV 10.1, Neut % (Auto) 66.8, Lymph % (Auto) 22.8, [place] % (Auto) 8.8, Eos % (Auto) 0.6, Baso % (Auto) 0.6, Neut # (Auto) 8.0 H, Lymph # (Auto) 2.7, [place] # (Auto) 1.1 H, Eos # (Auto) 0.1, Baso # (Auto) 0.1, Sodium 135 L, Potassium 3.5, Chloride 106, Carbon Dioxide 22, Anion Gap 10.5, BUN 5 L D, Creatinine 0.70, Estimated Creat Clear 121, Estimated GFR 107, Est GFR ( Amer) 129, Glucose 68 L, Calcium 8.3 L, Total Bilirubin 0.6, AST 32 D, ALT 27, Alkaline Phosphatase 43, Total Protein 6.0 L, Albumin 3.7 D, Globulin 2.3, Albumin/Globulin Ratio 1.6 I & O for Last 24 hours: Intake & Output 05/24/25 05/25/25 05/26/25 05/27/25 11:59 11:59 11:59 11:59 Intake Total 1489.583 / 1489.583 Balance 1489.583 / 1489.583 Weight 132 lb 132 lb Constitutional Constitutional: no acute distress *Routine HEENT Exam Head: Present normocephalic Eye: Present EOMI and PERRL ENT: Present mucous membranes moist *Routine Neck Exam Neck: Present supple; Absent lymphadenopathy *Routine Respiratory Exam Respiratory: Present CTA bilaterally *Routine Cardiovascular Exam Cardiovascular: Present RRR *Routine Abdominal Exam Abdominal: Present soft and normoactive bowel sounds; Absent tenderness *Routine Rectal Exam Rectal:: deferred *Routine Genitalia Exam Genitalia:: deferred *Routine Extremities Exam Extremities: Absent cyanosis, clubbing or edema *Routine Skin Exam Skin: Present warm; Absent rash *Routine Neurological Exam Neurological: Present alert and oriented X3 Assessment and Plan *Assessment and plan (1) Hyperemesis gravidarum: Status: Acute Category: Medical Code(s): O21.0 - Mild hyperemesis gravidarum (2) Hypothyroidism: Status: Acute Qualifiers: Hypothyroidism type: postablative Qualified Code(s): E89.0 - Postprocedural hypothyroidism Category: Medical Code(s): E03.9 - Hypothyroidism, unspecified Plan 1. She is admitted for rehydration and control of her nausea vomiting. 2. We will start IV vitamins daily as well. 4. We will continue with IV Phenergan for her nausea and vomiting. 5. We will gradually increase her food intake. #6. Will send her home when she is feeling a little better.
--- NOTE | 2025-05-27 10:28 | P.PN_ITS ---
Subjective *Date: 05/27/25 *Time: 10:28 Interval history: She says she is feeling a little better this morning. She has had 1 small episode of emesis. She does admit to smoking marijuana before she got . Her blood work is normal. She does have slightly elevated TSH but her free T4 is normal. She takes thyroid replacement medication. She is receiving IV fluids, IV vitamins and a banana bag and Phenergan. Medical Exam Vital signs and Labs for Last 24 Hours: Vital Signs Temp Pulse Pulse Resp BP BP Pulse Ox 05/27/25 04:35 98.3 F 74 18 113/67 100 05/26/25 21:00 98.4 F 55 L 17 98/58 L 97 05/26/25 14:34 70 19 112/77 100 05/26/25 14:20 98.2 F 73 18 105/65 L 05/26/25 13:30 68 99 05/26/25 13:00 73 105/65 L 100 05/26/25 12:30 81 101/54 L 100 05/26/25 12:01 67 108/67 L 100 05/26/25 11:48 62 110/49 L 100 05/26/25 11:33 100 05/26/25 11:17 98.5 F 79 16 120/70 100 O2 Del Method 05/27/25 04:35 Room Air 05/26/25 21:00 Room Air 05/26/25 14:34 Room Air 05/26/25 14:20 Room Air 05/26/25 13:30 05/26/25 13:00 05/26/25 12:30 05/26/25 12:01 Room Air 05/26/25 11:48 Room Air 05/26/25 11:33 Room Air 05/26/25 11:17 Room Air Intake and Output 05/26/25 05/27/25 05/27/25 19:59 03:59 11:59 Intake Total 864.583 / 1489.583 625 / 1489.583 Balance 864.583 / 1489.583 625 / 1489.583 Intake: Intake, Total IV Amount 864.583 / 1489.583 625 / 1489.583 Lactated Ringers 1000ML 500 ml 500 / 500 @ 999 mls/hr IV .Q31M ONE Rx#: [id number] Mvi, Adult No.1 with Vit K 10 364.583 / 989.583 625 / 989.583 ml Thiamine HCl 100 mg Magnesium Sulfate 2 gm In Lactated Ringers 1000ML 1,000 ml @ 125 mls/hr IV Q8H [facility] Rx#: [id number] Other: Weight 132 lb Patient Weight 05/27/25 11:59 Weight 132 lb Laboratory Results - last 24 hr 05/26/25 11:14: Urine Color Yellow, Urine Appearance Clear, Urine pH 6.0, Ur Specific [place] 1.025, Urine Protein Trace, Urine Glucose (UA) Negative, Urine Ketones 3+, Urine Blood Negative, Urine Nitrate Negative, Urine Bilirubin 1+ A, Urine Urobilinogen 0.2, Ur Leukocyte Esterase Negative, Urine RBC None, Urine WBC 3-5, Ur Squamous Epith Cells 3-5, Urine Bacteria Trace 05/26/25 11:26: WBC 10.9, RBC 4.73, Hgb 14.3, Hct 40.2, MCV 85.0, MCH 30.2, MCHC 35.6 H, RDW 12.8, Plt Count 234, MPV 10.0, Neut % (Auto) 71.8, Lymph % (Auto) 19.5, [place] % (Auto) 7.3, Eos % (Auto) 0.2, Baso % (Auto) 0.7, Neut # (Auto) 7.8, Lymph # (Auto) 2.1, [place] # (Auto) 0.8, Eos # (Auto) 0.0, Baso # (Auto) 0.1, Sodium 135 L, Potassium 3.7, Chloride 103, Carbon Dioxide 21 L, Anion Gap 14.7, BUN 7, Creatinine 0.70, Estimated Creat Clear 121, Estimated GFR 107, Est GFR ( Amer) 129, Glucose 84, Calcium 9.5, Total Bilirubin 0.8, AST 44 H D, ALT 29 D, Alkaline Phosphatase 52, Total Protein 7.9, Albumin 5.0, Globulin 2.9, Albumin/Globulin Ratio 1.7, Lipase 110, Serum HCG, Qual Positive, Acetone Level None detected 05/27/25 06:30: WBC 12.0, RBC 3.90 L, Hgb 11.5 L D, Hct 33.6 L, MCV 86.2, MCH 29.5, MCHC 34.2, RDW 12.9, Plt Count 188, MPV 10.1, Neut % (Auto) 66.8, Lymph % (Auto) 22.8, [place] % (Auto) 8.8, Eos % (Auto) 0.6, Baso % (Auto) 0.6, Neut # (Auto) 8.0 H, Lymph # (Auto) 2.7, [place] # (Auto) 1.1 H, Eos # (Auto) 0.1, Baso # (Auto) 0.1, Sodium 135 L, Potassium 3.5, Chloride 106, Carbon Dioxide 22, Anion Gap 10.5, BUN 5 L D, Creatinine 0.70, Estimated Creat Clear 121, Estimated GFR 107, Est GFR ( Amer) 129, Glucose 68 L, Calcium 8.3 L, Total Bilirubin 0.6, AST 32 D, ALT 27, Alkaline Phosphatase 43, Total Protein 6.0 L, Albumin 3.7 D, Globulin 2.3, Albumin/Globulin Ratio 1.6 I & O for Labs for Last 24 Hours: Intake & Output 05/24/25 05/25/25 05/26/25 05/27/25 11:59 11:59 11:59 11:59 Intake Total 1489.583 / 1489.583 Balance 1489.583 / 1489.583 Weight 132 lb 132 lb Head: Present normocephalic Neck: Present normal inspection Respiratory: Present normal respiratory effort; Absent accessory muscle use Assessment and Plan *Assessment and plan (1) Hyperemesis gravidarum: Status: Acute Category: Medical Code(s): O21.0 - Mild hyperemesis gravidarum (2) Hypothyroidism: Status: Acute Qualifiers: Hypothyroidism type: postablative Qualified Code(s): E89.0 - Postprocedural hypothyroidism Category: Medical Code(s): E03.9 - Hypothyroidism, unspecified Plan 1. She is feeling much better this morning. She has had 1 small episode of emesis. 2. We will gradually increase her diet and start full fluids this morning. She also would like mashed potatoes and I said this would be fine. 3. If she is feeling better tomorrow we will consider sending her home.
--- NOTE | 2025-05-27 13:37 | P.DS_ITS ---
General Admission date:: 05/26/25 Discharge date: 05/27/25 HPI HPI HPI: This is a 20-year-old female patient, with past medical history of hypothyroidism, anxiety, depression, who is presented to the emergency dep artment today for evaluation of intractable nausea and vomiting. Patient is currently 8 weeks and has been experiencing hyperemesis throughout the week. She was seen here in our emergency department on 05/13/2025 for similar symptoms. At that time she was treated with Reglan, Zofran, and Benadryl IV as well as 1 L of lactated Ringer's. She had resolution of symptoms and was discharged home. She did have asymptomatic bacteriuria of so she was also treated with Keflex. She states that her symptoms have returned and she has been vomiting for several days. She states that the last time she vomited she had a coin sized speck of blood in her vomit. She is having some epigastric abdominal discomfort. No diarrhea, no vaginal discharge or vaginal bleeding, and she denies dysuria/hematuria. She says that she has lost about 9 pounds in this . Hospital Course Hospital Course Hospital Course: She was admitted and given IV fluids as well as IV Phenergan for nausea and vomiting. She has been receiving IV vitamins as well. She was seen this morning and had 1 small episodes of emesis and today she has had some food and actually feels much better. She would like to go home today. We are discharging her home with a prescription for Phenergan suppositories. She will follow-up this week with Dr. Hector. Her condition on discharge is stable and improved. Exam Data for Last 24 hours Vital signs and Labs for Last 24 Hours: Temp Pulse Resp BP Pulse Ox O2 Del Method 98.3 F 74 18 113/67 100 Room Air 05/27/25 04:35 05/27/25 04:35 05/27/25 04:35 05/27/25 04:35 05/27/25 04:35 05/27/25 04:35 Laboratory Results - last 24 hr 05/26/25 11:26: Lipase 110, Acetone Level None detected 05/27/25 06:30: WBC 12.0, RBC 3.90 L, Hgb 11.5 L D, Hct 33.6 L, MCV 86.2, MCH 29.5, MCHC 34.2, RDW 12.9, Plt Count 188, MPV 10.1, Neut % (Auto) 66.8, Lymph % (Auto) 22.8, [place] % (Auto) 8.8, Eos % (Auto) 0.6, Baso % (Auto) 0.6, Neut # (Auto) 8.0 H, Lymph # (Auto) 2.7, [place] # (Auto) 1.1 H, Eos # (Auto) 0.1, Baso # (Auto) 0.1, Sodium 135 L, Potassium 3.5, Chloride 106, Carbon Dioxide 22, Anion Gap 10.5, BUN 5 L D, Creatinine 0.70, Estimated Creat Clear 121, Estimated GFR 107, Est GFR ( Amer) 129, Glucose 68 L, Calcium 8.3 L, Total Bilirubin 0.6, AST 32 D, ALT 27, Alkaline Phosphatase 43, Total Protein 6.0 L, Albumin 3.7 D, Globulin 2.3, Albumin/Globulin Ratio 1.6 I & O for Last 24 hours: Intake & Output 05/25/25 05/26/25 05/27/25 05/28/25 11:59 11:59 11:59 11:59 Intake Total 2489.583 / 2489.583 Balance 2489.583 / 2489.583 Weight 132 lb 132 lb Constitutional Constitutional: no acute distress *Routine HEENT Exam Head: Present normocephalic *Routine Respiratory Exam Respiratory: Present normal respiratory effort; Absent accessory muscle use Results Data Completed and Pending Labs on day of discharge: Labs from last 24 hours 05/27/25 05/26/25 06:30 11:26 WBC 12.0 RBC 3.90 L Hgb 11.5 L D Hct 33.6 L MCV 86.2 MCH 29.5 MCHC 34.2 RDW 12.9 Plt Count 188 MPV 10.1 Neut % (Auto) 66.8 Lymph % (Auto) 22.8 [place] % (Auto) 8.8 Eos % (Auto) 0.6 Baso % (Auto) 0.6 Neut # (Auto) 8.0 H Lymph # (Auto) 2.7 [place] # (Auto) 1.1 H Eos # (Auto) 0.1 Baso # (Auto) 0.1 Sodium 135 L Potassium 3.5 Chloride 106 Carbon Dioxide 22 Anion Gap 10.5 BUN 5 L D Creatinine 0.70 Estimated Creat Clear 121 Estimated GFR 107 Est GFR ( Amer) 129 Glucose 68 L Calcium 8.3 L Total Bilirubin 0.6 AST 32 D ALT 27 Alkaline Phosphatase 43 Total Protein 6.0 L Albumin 3.7 D Globulin 2.3 Albumin/Globulin Ratio 1.6 Lipase 110 Acetone Level None detected DS: Diagnosis Discharge Diagnosis (1) Hyperemesis gravidarum: Status: Acute Code(s): O21.0 - Mild hyperemesis gravidarum (2) Hypothyroidism: Status: Acute Code(s): E03.9 - Hypothyroidism, unspecified Qualifiers: Hypothyroidism type: postablative Qualified Code(s): E89.0 - Postprocedural hypothyroidism Meds Home Medications and Allergies Home Medications ?Medication ?Instructions ?Recorded ?Confirmed ?Type vits no.126-ferrous fum 1 tab PO DAILY #30 ta bs 05/25/25 05/26/25 Rx 28 mg iron-folic acid 800 mcg tablet (Classic ) levothyroxine 150 mcg tablet 150 mcg PO DAILY 05/26/25 05/26/25 History promethazine 12.5 mg rectal 12.5 mg UT Q6H PRN nausea and 05/27/25 Rx suppository vomiting #12 ea New Prescriptions to Start Prescriptions: promethazine Rahul Whitehaed Allergies Allergy/AdvReac Type Severity Reaction Status Date / Time mushroom Allergy Rash Verified 05/23/25 11:05 Discharge Plan Disposition Patient Disposition: Home, Self-Care Condition: Good Follow up Plan Prescriptions/Medication Reconciliation: New promethazine 12.5 mg suppository 12.5 mg UT Q6H PRN (Reason: nausea and vomiting) Qty: 12 2RF Continued Classic 28 mg iron- 800 mcg tablet 1 tab PO DAILY Qty: 30 11RF levothyroxine 150 mcg tablet 150 mcg PO DAILY Patient Comments: TAKE 1 TABLET BY MOUTH ONCE DAILY Problem Reconciliation Problems Reviewed?: Yes Patient Discharge Instructions ACTIVITY: Continue current activity DIET: continue same diet Print Language: Armenian Providers Primary Care Provider: Kuldeep Harris Admit Provider: Rahul Whitehead Attending Provider: Rahul Whitehead
== END 2025-05-27 14:27 | disposition home or self-care (01) ==
LOC: ER 11:28 → OB 14:01
PROVIDERS: Admitting Provider Nurse Practitioner Obstetrics & Gynecology; Emergency Provider Student in an Organized Health Care Education/Training Program; PCP Internal Medicine Adolescent Medicine; Visit Provider Nurse Practitioner Obstetrics & Gynecology
DX: O21.0 Mild hyperemesis gravidarum (principal); O99.281 Endocrine, nutritional and metabolic diseases complicating pregnancy, first trimester; O99.891 Other specified diseases and conditions complicating pregnancy; E89.0 Postprocedural hypothyroidism; R00.1 Bradycardia, unspecified; Z3A.08 8 weeks gestation of pregnancy; Z91.018 Allergy to other foods; Z79.890 Hormone replacement therapy
CPT/HCPCS: 36415; 80053; 81001; 82009; 83690; 84703; 85025; 93005; 96361; 96365; 96366; 96375; 96376; 99285; G0378; J2550; J2765; J3411; J3475; J7120

== ENCOUNTER 2025-07-12 11:32 | Outpatient (CLI) | payer OTHER, SELFPAY ==
--- OUTSIDE RECORDS SUMMARY | 2006-11-09 01:00 | XMS_ITS | Encounter Summary ---
Author Organization [facility] Address [address] [place] [address] Care Team Providers Care Realtime Reporter Name Role Phone Unavailable Primary Care Provider Unavailabl e Encounter Details Date Type Department Care Team (Late st Contact Info) Description 11/09/[address] [facility] Division of Cardiology [address] [place] [phone] Social History Tobacco Use Types Packs/Day [...]
[2025-07-12 12:10] LABS: Hematocrit 35.9 % (37.0-47.0); Hemoglobin 12.0 g/dL (12.2-16.2); Immature Granulocytes % 0.6 %; Mean Corpuscular HGB Conc 33.4 g/dL (31.8-35.4); Mean Corpuscular Hemoglobin 29.9 pg (27.0-31.2); Mean Corpuscular Volume 89.3 fl (81-99); Nucleated Red Blood Cells % 0 %; Platelet Count 197 K/mm3 (142-424); Red Blood Count 4.02 M/mm3 (4.20-5.40); Red Cell Distribution Width-SD 44.7 fL; White Blood Count 12.0 K/mm3 (4.5-13.0)
--- OUTSIDE RECORDS SUMMARY | 2025-07-12 12:19 | XMS_ITS | Data Portability ---
Author Organization [place] [facility] [place] [facility] ADMIN Address [address] [place] [id number] Care Team Providers Care Soil Conservationist Name Role Phone BLANCA VASQUEZ Primary Care Provider Assessment Encounter Date Assessment Date Assessment LastModified by Organization Details LastModified Time 05/18/2023 05/18/2023 18-year-old female with chronic abdominal pain and daily nausea and vomiting -Schedule EGD and colonoscopy for further evaluation. -Will Start Mirtazapine 15 mg p.o. qhs for chronic nausea. She states this has been refractory to Zofran and Promethazine. Cannabis cessation was counseled, however the patient nor her father are amendable to this. -Start Linzess for possible underlying constipation -She may use hyoscyamine as needed for abdominal pain. -Will obtain CT results from [facility]. -F/u after procedures [email or web address] Not available 05/18/2023 11:56:30 07/09/2023 07/09/2023 18-year-old female with chronic abdominal pain, constipation, and chronic nausea. EGD and colonoscopy with no etiology for her symptoms. She likely has IBS-C. -Continue Hyoscyamine for abdominal discomfort -Increase Linzess to 290 mcg p.o. once daily -I have counseled the patient on the risks of continued marijuana use and suspicion for cannabis hyperemesis syndrome. She intends to continue use despite this. She stopped Mirtazapine. [email or web address] Not available 07/09/2023 21:28:09 08/07/2023 08/07/2023 18-year-old female with chronic abdominal pain, constipation, and chronic nausea. EGD and colonoscopy with no etiology for her symptoms. She likely has IBS-C. -Continue Hyoscyamine for abdominal discomfort -Continue Linzess 290 mcg p.o. once daily -I have counseled the patient on the risks of continued marijuana use and suspicion for cannabis hyperemesis syndrome. She intends to continue use despite this. She stopped Mirtazapine. -Start QHS phenergan. [email or web address] Not available 08/07/2023 14:46:16 07/07/2024 07/07/2024 19-year-old female with chronic nausea and vomiting. Symptoms are cyclical EGD and colonoscopy previously with no etiology for her symptoms. She was previously suspected of having IBS and her abdominal pain and bowel irregularity have improved with diet changes. Nausea and vomiting have persisted. 1) Nausea and vomiting: Potentially cyclical vomiting syndrome. She has reduced her use of THC without improvement noted. Prior use of Mirtazapine and promethazine were not helpful. -Continue Zofran as needed. Refill provided. -Will obtain a gastric emptying study -Start treatment for possible CVS with coenzyme q10, riboflavin, and L-carnitine. She was informed that she may have to obtain some of these OTC as they may not be fillable by her pharmacy and may not be covered by insurance. 2) History of IBS: Pain and bowel irregularity have improved with dietary changes and improving oral hydration. She will continue. f/u 2 months [email or web address] Not available 07/07/2024 14:09:53 09/06/2024 09/06/2024 19-year-old female with chronic nausea and vomiting. Symptoms are cyclical. EGD and colonoscopy previously with no etiology for her symptoms. She was previously suspected of having IBS and her abdominal pain and bowel irregularity have improved with diet changes. Nausea and vomiting have persisted. 1) Nausea and vomiting: Potentially cyclical vomiting syndrome. She is currently symptom free and eating a healthier diet. Prior use of Mirtazapine and promethazine were not helpful. -THC abstinence counseled. -Continue Zofran as needed. -She recently had a normal gastric emptying study -She was previously start treatment for possible CVS with coenzyme q10, riboflavin, and L-carnitine. She did not stay on the treatment due to having minimal symptoms before starting. -Consider GBUS/HIDA scan with recurrent symptoms. 2) History of IBS: Pain and bowel irregularity have improved with dietary changes and improving oral hydration. She will continue. f/u PRN [email or web address] Not available 09/06/2024 15:41:07 Plan of Treatment Reminders Order Date Submit Date Provider Last Modified By Organization Details Last Modified Time Details Appointments None recorded. Lab None recorded. Referral None recorded. Procedures None recorded. Surgeries None recorded. Imaging NM, gastric emptying scan 2023 [place] [address] [address], [address] [place], [address], 13:23:19 Medication Orders coenzyme Q10 200 mg capsule 2023 [facility], [address], [address], 13:54:03 riboflavin (vitamin B2) 100 mg tablet 2023 024 [facility], [address], [address], 13:53:59 L-Carnitine 500 mg capsule 2023 024 [facility], [address], [address], 13:54:00 ondansetron 4 mg disintegrat ing tablet 2023 024 [facility], [address], [address], 4 13:46:55 promethazin e 25 mg tablet 2022 023 [facility], [address], [address], 3 14:48:15 Linzess 290 mcg capsule 2022 023 [facility], [address], [address], 3 13:48:25 hyoscyamine 0.125 mg sublingual tablet 2022 023 [facility], [address], [address], 3 13:48:26 Linzess 72 mcg capsule 2022 023 [facility], [address], [address], 3 11:07:13 mirtazapine 15 mg tablet 2022 023 [facility], [address], [address], 3 11:07:14 hyoscyamine 0.125 mg sublingual tablet 2022 023 [facility], [address], [address], 3 11:07:12 Patient TargetsNo targets recorded. Patient InstructionsNo instructions recorded. Reason for Referral None Reported. Results Created Date Observation Date Name Description Value Unit Range Abnormal Flag Note LastModifiedBy Organization Detail LastModifiedTime 08/16/20 24 08/16/2024 NM, gastr ic empty ing scan [facility] [place] [facility] [address] [place] [address] Phone: Fax: Name: MELVIN NATION Exam Date: 2023 : 005 Age 19 years Gender : F Access ion: [id number] Physic abbi: MITCHELL ROD Facili ty: [facility] Facili ty HSV: Outpat ient Exam: GASTRI C EMPTYI NG STUDY GASTRI C EMPTYI NG-SUL FUR COLLOI D CLINIC AL: Female , 19 years old.Lo wer abdomi nal pain n/v TECHNI QUE:Th e patien t was orally admini stered 5.5 mCi of Tc-sul fur colloi d with oatmea l. Gamma camera imagin g acquis itions at 1-60 minute s post radiop harmac eutica l admini strati on was perfor med. COMPAR FAMILIA STUDIE S : NM - None. CR - Not availa ble for review at this time. CT - Not availa ble for review at this time. MR - Not availa ble for review at this time. US - Not availa ble for review at this time. FINDIN GS: There is normal fillin g and emptyi ng of the stomac h. 0 hour percen t emptyi n% 1 hour percen t emptyi n% 2 hour percen t emptyi n% 4 hour percen t emptyi n% IMPRES NAZIA: No acute findin gs on this gastri c emptyi ng nuclea r medici ne scan. Electr onical ly signed by:Roberto parker MD07/23 06:45 PM EST RP Workst ation: SEALWR [id number] Dictat ed By: Michael Duque Transc ribed By: Transc ribed On: 2023 12:03 PM Electr onical ly signed by: Michael Duque 2023 Thank you for referr MELVIN Foley to [facility] [place] [facility]. Legall y authen ticate d by CLARK CHEW 2023-09 12:03: 21 CC'ed Logic: Orderi ng Provid er: ALONDRA WINN Attend ing Provid er: ALONDRA WINN Referr ing Provid er: ALONDRA WINN Admitt ing Provid er: ALONDRA WINN [email or web address] [facility] [address] , [place], [address], 11/26/2024 11:40:43 Result Notes Documentation Provider Name and Address Organization Details Recorded Time Nm, Gastric Emptying Scan : [facility] [address] [place] [address] Name: MELVIN NATION Exam Date: 08/16/2024 : 2005 Age 19 years Gender: F Physician: MITCHELL ROD Facility: [facility] Facility HSV: Outpatient Exam: GASTRIC EMPTYING STUDY GASTRIC EMPTYING-SULFUR COLLOID CLINICAL: Female, 19 years old.Lower abdominal pain n/v TECHNIQUE:The patient was orally administered 5.5 mCi of Tc-sulfur colloid with oatmeal. Gamma camera imaging acquisitions at 1-60 minutes post radiopharmaceutical administration was performed. COMPARISON STUDIES : NM - None. CR - Not available for review at this time. CT - Not available for review at this time. MR - Not available for review at this time. US - Not available for review at this time. FINDINGS: There is normal filling and emptying of the stomach. 0 hour percent emptyin% 1 hour percent emptyin% 2 hour percent emptyin% 4 hour percent emptyin% IMPRESSION: No acute findings on this gastric emptying nuclear medicine scan. Electronically signed by:Michael Law MD08/16/2024 06:45 PM [facility] Dictated By: Michael Law Transcribed By: Transcribed On: 08/16/2024 12:03 PM Electronically signed by: Michael Law 08/16/2024 Thank you for referring MELVIN NATION to [facility]. Legally authenticated by CHERRY CHEW 2024-08-16 12:03:21 CC'ed Logic: Ordering Provider: ALONDRA WINN Attending Provider: ALONDRA WINN Referring Provider: ALONDRA WINN Admitting Provider: ALONDRA Rod PA-C [address], [place], [address], [place] [facility] & [place] 11/26/2024 11:40:43 Problems Name Problem SNOMED Code Status Onset Date Resolution Date Notes Provider Name and Address Organization Details Recorded Time Nausea and vomiting 11092136 Active 2022 Mitchell Rod PA-C [address], [place], [address] , [place] [facility] & [place] 3 11:05:43 Abdominal pain 60074130 Active [address], [place], [address] , [facility] - [facility] & [place] 3 11:05:47 Chronic idiopathic constipation 97447992 Active [address], [place], [place], [address] [place] [address] , [place] [facility] & [place] 3 11:05:55 Irritable bowel syndrome characterized by constipation 423816787 Active 2022 Mitchell Rod PA-C [address], [place], [place], [address] [place] [address] , [facility] - [facility] & [place] 3 13:48:02 Cyclical vomiting syndrome 23271776 Active [address], [place], [place], [address] [place] [address] , [place] - [facility] & [place] 4 13:51:40 Irritable bowel syndrome 75095193 Active [address], [facility] [address] , [place] - [facility] & [place] 4 14:10:13 Problem Notes None recorded. Medical Equipment None Reported. Allergies No known drug allergies Medications Name Sig Start Date Stop Date Status Note LastModified by Organization Details LastModified Time cyclobenzapr ine 10 mg tablet TAKE 1 TABLET BY MOUTH AT BEDTIME FOR MUSCLE SPASM active Not Available Not Available No t Available methocarbamo l 500 mg tablet TAKE ONE TABLET BY MOUTH EVERY 6 HOURS NEEDED FOR PAIN active Not Available Not Available No t Available levothyroxin e 175 mcg tablet TAKE 1 TABLET BY MOUTH ONCE DAILY active Not Available Not Available No t Available promethazine -DM 6.25 mg-15 mg/5 mL oral syrup TAKE 5 ML BY MOUTH EVERY 6 HOURS FOR 5 DAYS active Not Available Not Available No t Available acetaminophe n 325 mg tablet TAKE TWO TABLETS BY MOUTH EVERY 6 HOURS NEEDED FOR FEVER OR mild pain active Not Available Not Available No t Available polyethylene glycol 3350 17 gram oral powder packet Take by oral route for 1 day. active Not Available Not Available N ot Available azithromycin 250 mg tablet TAKE 2 TABLETS BY MOUTH ON DAY 1, AND THEN TAKE 1 TABLET BY MOUTH ONCE A DAY ON DAY 2 THROUGH DAY 5 active Not Available Not Available No t Available riboflavin (vitamin B2) 100 mg tablet Take 2 tablets twice a day by oral route for 30 days. 2023 active Not Available Not Available Not Avai lable promethazine 12.5 mg tablet TAKE 1 TABLET BY MOUTH EVERY 6 HOURS NEEDED FOR NAUSEA AND VOMITING active Not Available Not Available No t Available ondansetron HCl 4 mg tablet TAKE 1 TABLET BY MOUTH EVERY 8 HOURS NEEDED FOR NAUSEA FOR 3 DAYS active Not Available Not Available No t Available famotidine 40 mg tablet TAKE 1 TABLET BY MOUTH EVERY DAY AT BEDTIME FOR 14 DAYS active Not Available Not Available No t Available Depo-Medrol 20 mg/mL suspension for injection Take by injection route. active Not Available Not Available No t Available famotidine 20 mg tablet TAKE 1 TABLET BY MOUTH TWICE DAILY FOR 6 WEEKS active Not Available Not Available No t Available ondansetron HCl 4 mg/5 mL oral solution TAKE 2.5ML BY MOUTH THREE TIMES DAILY NEEDED FOR NAUSEA AND VOMITING FOR 5 DAYS active Not Available Not Available N ot Available hydrocodone 7.5 mg-acetamino phen 325 mg tablet TAKE ONE TABLET BY MOUTH EVERY 4 HOURS NEEDED FOR post op pain MAY CAUSE DROWSINESS active Not Available Not Available N ot Available pantoprazole 40 mg tablet,delay ed release TAKE 1 TABLET BY MOUTH ONCE DAILY active Not Available Not Available No t Available hyoscyamine 0.125 mg sublingual tablet DISSOLVE 1 TABLET IN MOUTH EVERY 4 HOURS NEEDED FOR 30 DAYS active Not Available Not Available No t Available lidocaine 5 % topical patch APPLY 1 PATCH TOPICALLY TO THE AFFECTED AREA ONCE DAILY AND LEAVE IN PLACE FOR 12 HOURS, THEN REMOVE AND LEAVE OFF FOR 12 HOURS active Not Available Not Available No t Available promethazine 25 mg tablet TAKE 1 TABLET BY MOUTH EVERY 12 HOURS active Not Available Not Available No t Available omeprazole 20 mg capsule,[place] yed release active Not Available Not Available Not Available levothyroxin e 200 mcg tablet TAKE 1 TABLET BY MOUTH ONCE DAILY active Not Available Not Available No t Available mirtazapine 15 mg tablet TAKE 1 TABLET BY MOUTH ONCE DAILY AT BEDTIME active Not Available Not Available No t Available ondansetron 4 mg disintegrati ng tablet Place 1 tablet twice a day by translingua l route for 30 days. active Not Available Not Available No t Available fluticasone propionate 50 mcg/actuatio n nasal spray,suspen nazia USE 2 SPRAY(S) IN EACH NOSTRIL ONCE DAILY FOR ALLERGIES active Not Available Not Available No t Available medroxyproge sterone 150 mg/mL intramuscula r suspension INJECT 1ML INTRAMUSCUL FREDDY ONCE EVERY 3 MONTHS DIRECTED active Not Available Not Available No t Available amoxicillin 875 mg-potassium clavulanate 125 mg tablet TAKE 1 TABLET BY MOUTH EVERY 12 HOURS FOR 7 DAYS active Not Available Not Available N ot Available nitrofuranto in monohydrate/ macrocrystal s 100 mg capsule TAKE 1 CAPSULE BY MOUTH TWICE DAILY FOR 5 DAYS. MUST ADMINISTER WITH A MEAL/FOOD active Not Available Not Available No t Available coenzyme Q10 200 mg capsule Take 1 capsule twice a day by oral route for 30 days. 2023 active Not Available Not Available Not Avai lable omeprazole active Not Available Not Av ailable Not Available famotidine active Not Available Not Av ailable Not Available levothyroxin e (bulk) active Not Available Not Available Not Available L-Carnitine 500 mg capsule Take 2 capsules twice a day by oral route for 30 days. 2023 active Not Available Not Available Not Avai lable diclofenac 1 % topical gel APPLY 2 GRAMS TOPICALLY 4 TIMES DAILY FOR SHOULDER PAIN, APPLY TO SINGLE SHOULDER active Not Available Not Available No t Available Linzess 290 mcg capsule TAKE 1 CAPSULE BY MOUTH ONCE DAILY BEFORE MEAL(S) active Not Available Not Available No t Available Linzess 72 mcg capsule TAKE 1 CAPSULE BY MOUTH ONCE DAILY BEFORE MEAL(S) active Not Available Not Available No t Available Vitals Date Recorded Body weight Body mass index (BMI) Body mass index (BMI) [Percentile] Per age and sex Body height Body temperature Heart rate Oxygen saturation Oxygen saturation in Arterial blood by Pulse oximetry Heart rate Systolic And Diastolic Provider Name and Address Organization Details Last Updated DateTime 3 50080.2 7 g 25.3 kg/m2 83 % 160.02 cm 97.7 [degF] 66 /min 97 % 97 % 61 /min 118/83 mm[Hg[facility] 10[facility]17:16 Date Recorded Body height Body mass index (BMI) Body mass index (BMI) [Percentile] Per age and sex Body weight Body temperature Oxygen saturation Oxygen saturation in Arterial blood by Pulse oximetry Heart rate Heart rate Systolic And Diastolic Provider Name and Address Organization Details Last Updated DateTime 4 160.02 cm 24.2 kg/m2 74 % 97970 g 97.9 [degF] 97 % 97 % 67 /min 71 /min 135/90 mm[Hg] [facility] [place] 4 13:26:47 Date Recorded Body height Body mass index (BMI) Body mass index (BMI) [Percentile] Per age and sex Body weight Body temperature Oxygen saturation Oxygen saturation in Arterial blood by Pulse oximetry Heart rate Heart rate Systolic And Diastolic Provider Name and Address Organization Details Last Updated DateTime 3 160.02 cm 25.7 kg/m2 84 % 08205.8 9 g 97.3 [degF] 98 % 98 % 70 /min 58 /min 133/88 mm[Hg] Araseli Thomas [facility] & [place] 3 13:32:10 Date Recorded Body height Body mass index (BMI) [Percentile] Per age and sex Body mass index (BMI) Body weight Body temperature Oxygen saturation Oxygen saturation in Arterial blood by Pulse oximetry Heart rate Heart rate Systolic And Diastolic Provider Name and Address Organization Details Last Updated DateTime 3 160.02 cm 74 % 23.9 kg/m2 83952.3 3 g 97.7 [degF] 99 % 99 % 78 /min 88 /min 103/72 mm[Hg] Araseli Thomas [place] - [facility] & [place] 3 11:37:16 Date Recorded Body height Body mass index (BMI) Body mass index (BMI) [Percentile] Per age and sex Body weight Heart rate Heart rate Oxygen saturation Oxygen saturation in Arterial blood by Pulse oximetry Body temperature Systolic And Diastolic Provider Name and Address Organization Details Last Updated DateTime 4 160.02 cm 25.6 kg/m2 82 % 60787.3 8 g 70 /min 70 /min 99 % 99 % 97.6 [degF] 106/70 mm[Hg] [facility]ley [facility] & [place] 4 14:20:10 Social History Question Answer Notes LastModified by [facility] Details LastModified Time Tobacco Smoking Status Current Every Day Smoker Vape Keeley Salmeron [facility] & [place] 05/18/2023 10:19:07 What Is Your Level Of Caffeine Consumption? Moderate Information not available 08/07/2023 Sex: Unknown Functional Status Question Answer Note LastModified by [facility] Details LastModified Time Do you use any illicit or recreational drugs? Yes Marijuana [email or web address] Information not available 05/18/2023 Do you or have you ever used any other forms of tobacco or nicotine? No Information not available 08/07/2023 What is your level of alcohol consumption? Occasional [email or web address] Information not available 05/18/2023 Mental Status None recorded. Family History Relationship Description Onset Age of this Age Resolved Age Notes LastModified by Organization Details LastModified Time Father Gastroesopha geal reflux disease pt. added direct ly (09/05) [email or web address] Not available 09/05/2024 13:58:29 Father Hearing loss pt. added direct ly (09/05) [email or web address] Not available 09/05/2024 13:58:43 Father Substance abuse pt. added direct ly (09/05) [email or web address] Not available 09/05/2024 14:00:31 Father Allergy pt. added direct ly (09/05) [email or web address] Not available 09/05/2024 14:01:44 Mother Mental health problem pt. added direct ly (09/05) [email or web address] Not available 09/05/2024 13:59:28 Brother Mental health problem pt. added direct ly (09/05) [email or web address] Not available 09/05/2024 13:59:28 Maternal Aunt Mental health problem pt. added direct ly (09/05) [email or web address] Not available 09/05/2024 13:59:28 Maternal Aunt Substance abuse pt. added direct ly (09/05) [email or web address] Not available 09/05/2024 14:00:31 Paternal Grandmother Multiple sclerosis pt. added direct ly (09/05) [email or web address] Not available 09/05/2024 13:59:40 Paternal Grandmother Substance abuse pt. added direct ly (09/05) [email or web address] Not available 09/05/2024 14:00:31 Paternal Uncle Substance abuse pt. added direct ly (09/05) [email or web address] Not available 09/05/2024 14:00:31 Paternal Grandfather Substance abuse pt. added direct ly (09/05) [email or web address] Not available 09/05/2024 14:00:31 Paternal Aunt Disorder of thyroid gland pt. added direct ly (09/05) [email or web address] Not available 09/05/2024 14:01:01 Medical History No medical history recorded. Gynecological HistoryNo gynecological history recorded. Obstetrics History GPAL:G 0 P 0 0 0 0 Past Encounters Encounter ID Performer Location Encounter Start Date Encounter Closed Date Diagnosis/Indication Diagnosis SNOMED-CT Code Diagnosis ICD10 Code Diagnosis IMO Codes Diagnosis Note [id number] Mitchell Rod PA-C [facility] [address] [address] 05/18/2023 10:07:16 05/18/2023 11:41:24 Nausea and vomiting 89615549 R11.2 Abdominal pain 35173642 R10.9 Chronic id iopathic constipation 51492367 K59.04 [id number] Mitchell Rod PA-C [facility] [address] [address] 07/09/2023 13:18:33 07/09/2023 14:20:28 Nausea and vomiting 03546760 R11.2 Abdominal pain 57434124 R10.9 Irritable bowel syndrome characterized by constipation 352232739 K58.1 [id number] Johnathan Harp MD [facility] [address] [address] 08/07/2023 11:02:36 08/07/2023 11:51:56 Nausea and vomiting 01275234 R11.2 [id number] Mitchell Rod PA-C [facility] [address] [address] 07/07/2024 13:21:17 07/07/2024 13:54:47 Nausea and vomiting 03612327 R11.2 Cyclical v omiting syndrome 57344333 R11.15 Irritable bowel syndrome 30245443 K58.9 [id number] Mitchell Rod PA-C [facility] [address] [address] 09/06/2024 14:00:16 09/06/2024 15:06:50 Nausea and vomiting 68412404 R11.2 Cyclical v omiting syndrome 25571325 R11.15 Irritable bowel syndrome 07735540 K58.9 Health Concerns Section Related Observation LastModified by Organization Detai ls LastModified Time None Recorded Concern Status LastModified by Organization Details LastModified Time None Recorded Advance Directives Directive None Recorded Payers Insurance Date Sequence Insurance Name Policy Number Policy Alvarado Covered Member ID Alvarado Member ID Guarantor Name 09/03/2024 1 [employer] [facility] (MEDICAID HMO) Melvin Nation [id number] Melvin Nation Notes Date Note Type Note Provider Name and Address Organization Details Recorded Time 05/18/2023 text/html Ms. Nation is a 18-year-old female who was referred by Dr. Nica Rae for evaluation of chronic abdominal pain. She presents with her father today. They state that she has experiences chronic nausea, morning vomiting, and crampy lower abdominal pain since her elementary school years. She reports seeing several doctors in the past and underwent upper endoscopy on 2 occasions. She is not sure where, or by whom those were performed, but recalls that she was diagnosed with GERD and gastritis. She states she had 2 episodes of hematemesis with in the past couple of months. She is using a cannabis vape that she states she started to help her appetite and feels this is the only thing that has provided any relief. She has tried Zofran and promethazine for her nausea without any improvement. She is taking Omeprazole and Pepcid and does not feel that this has changed her symptoms either. She reports that if she does not have a BM in the morning, she has severe pain and nausea throughout the day. She estimates a 10 lb weight loss over the past year. She denies melena or hematochezia. Mitchell Rod PA-C [address] [facility], [place], [address], [facility] [place] & [place] 05/18/2023 11:56:40 07/09/2023 text/html PREVIOUS (05/18/23): Ms. Nation is a 18-year-old female who was referred by Dr. Nica Rae for evaluation of chronic abdominal pain. She presents with her father today. They state that she has experiences chronic nausea, morning vomiting, and crampy lower abdominal pain since her elementary school years. She reports seeing several doctors in the past and underwent upper endoscopy on 2 occasions. She is not sure where, or by whom those were performed, but recalls that she was diagnosed with GERD and gastritis. She states she had 2 episodes of hematemesis with in the past couple of months. She is using a cannabis vape that she states she started to help her appetite and feels this is the only thing that has provided any relief. She has tried Zofran and promethazine for her nausea without any improvement. She is taking Omeprazole and Pepcid and does not feel that this has changed her symptoms either. She reports that if she does not have a BM in the morning, she has severe pain and nausea throughout the day. She estimates a 10 lb weight loss over the past year. She denies melena or hematochezia. CURRENT (07/09/23): Ms. Nation returns to the office today for procedure follow-up. She underwent EGD and colonoscopy on 06/25/23 with normal gross endoscopic findings. Gastric biopsy showed mild chronic gastritis. She stopped the Mirtazapine as she did not find it helpful. She states she is self medicating with marijuana and has no intention of cutting back on this. The low dose Linzess did not help her produce a bowel movement. She also states she only had a few loose stools when she took the bowel prep. She is overall feeling better. She believes the hyoscyamine has been particularly helpful with managing her abdominal discomfort. Mitchell Rod PA-C [address], [place], [address], [facility] & [place] 07/09/2023 21:28:30 08/07/2023 text/html Ms. Nation is a very pleasant 18-year-old female who presents for follow-up of nausea vomiting abdominal pain. She underwent EGD and colonoscopy on 06/25/2023. She continues to use marijuana daily. Weight stable. Johnathan Harp MD [address], [place], [address], [facility] & [place] 08/07/2023 14:48:24 07/07/2024 text/html Ms. Nation is a very pleasant 19-year-old female who presents for follow-up of chronic nausea and vomiting. She underwent EGD and colonoscopy on 06/25/2023 without source of her symptoms identified. She was previously on treatment with Linzess due to constipation, but she states this is no longer an issue for her. She previous used marijuana daily, but states she has reduced this significant, but does report very occasional use. Her weight has remained stable. She reports that nausea is occurring in bouts every few months and often persists for months. She does have periods being symptom free for several weeks at a time. She has cut out a lot of processed foods and is eating healthier and drinking more water. Mitchell Rod PA-C [address], [place], [address], [facility] & [place] 07/07/2024 14:10:32 09/06/2024 text/html PREVIOUS 07/07/24): Ms. Nation is a very pleasant 19-year-old female who presents for follow-up of chronic nausea and vomiting. She underwent EGD and colonoscopy on 06/25/2023 without source of her symptoms identified. She was previously on treatment with Linzess due to constipation, but she states this is no longer an issue for her. She previous used marijuana daily, but states she has reduced this significant, but does report very occasional use. Her weight has remained stable. She reports that nausea is occurring in bouts every few months and often persists for months. She does have periods being symptom free for several weeks at a time. She has cut out a lot of processed foods and is eating healthier and drinking more water. CURRENT (09/06/24): Ms. Nation returns to the office today for follow-up regarding chronic nauesa and vomiting. She has had improvement in symptoms with diet changes and THC cessation. She has eliminated fast foods and greasy foods from her diet and is feeling well overall. She recently underwent a gastric emptying scan with normal results. She denies any additional issues at this time. Mitchell Rod PA-C [address], [place], [address], [facility] - [place] - [place] & [place] 09/06/2024 15:41:29 OBGyn Episode No OBEpisode recorded.
--- OUTSIDE RECORDS SUMMARY | 2025-07-12 12:19 | XMS_ITS | Clinical Summary ---
Author Organization Healthcare Address [address] [place] [address] Care Team Providers Care Board Attendant Name Role Phone Haider Katherin Champ MORALES Primary Care Provider [phone]- [phone] Allergies No known active allergies Medications FLUoxetine (PROzac) 40 MG capsule 08/01/2021 Active Euthyrox 150 MCG tablet 07/17/2021 Active nitrofurantoin, macrocrystal-mon ohydrate, (Macrobid) 100 MG capsule 08/06/2021 Active pantoprazole (Protonix) 40 MG EC tablet Take 1 tablet (40 mg total) by mouth 1 (one) time each day before breakfast. 30 tablet 3 08/13/2021 Active Active Problems Problem Noted Date Diagnosed Date Bilious vomiting with nausea 08/13/2021 Nicotine dependence due to vaping tobacco produc t 08/13/2021 Resolved Problems Problem Noted Date Diagnosed Date Resolved Date Chronic abdominal pain 08/13/202106/11 Family History Medical History Relation Name Comments [...] SDOH Screenings 2023 [facility]-Adult SDOH Screenings 2023 DZL-PILPS-88 Vaccine ( season) 2025 [facility]-Influenza Vaccine (#1) 05/22/202509/10, 07/10/2021, 06/29/2020, Additional [...] patient's age to complete this topic Insurance [id number] LARKIN [id number] [facility] MEDICA[facility] * Guarantor: RONNIE WELLINGTON Account Type Relation to Patient Date of Phone Billing Address Personal/Family Father [address], [place] [address] [facility] MEDICAID [place]cl[place] [id number] [facility] MEDICAID Advance Directives Documents on File Type Date Recorded Patient Ophthalmic Technologist Expl anation Power of Development Officer 08/12/2021 POA for An otf Care Teams Board Attendant Relationship Specialty Start Date End Date Katherin Maloney DO [facility] [place] [address] PCP - General 02/01/21
--- OUTSIDE RECORDS SUMMARY | 2025-07-12 12:19 | XMS_ITS | Encounter Summary ---
Author Organization Healthcare Address [address] [place] [address] Care Team Providers Care Metallurgical Laboratory Assistant Name Role Phone Katherin Maloney DO Primary Care Provider +1- [phone] Encounter Details Date Type Department Care Team (Late st Contact Info) Description 04/16/2023 [facility] [address] [place] [address] Nica Rae DO [address] [place] [address] [place] [address] Chronic abdominal pain (Primary Dx) Social [...] documented as of this encounter Care Teams Metallurgical Laboratory Assistant Relationship Specialty Start Date End Date Katherin Maloney DO [address] [place] [address] PCP - General 02/01/21 documented as of this encounter
--- OUTSIDE RECORDS SUMMARY | 2025-07-12 12:20 | XMS_ITS | Clinical Summary ---
Author Organization [facility] Address [address] [place] [address] Care Team Providers Care Hand Woodworking Sander Name Role Phone Unavailable Primary Care Provider Unavailabl e Source Comments [facility] is fully rolled out with thefollowing exceptions:General Clinical Research [facility] Social History Tobacco Use Types Packs/Day [...]
--- OUTSIDE RECORDS SUMMARY | 2025-07-12 12:20 | XMS_ITS | Clinical Summary ---
Author Organization [facility] Address [address] [place] [address] Phone Care Team Providers Care [facility] Hospitalist Name Role Phone Kuldeep Harris MD Primary Care Provider [phone] Allergies No known active allergies Medications LEVOthyroxine [...] - season) 2025 Influenza Vaccine (#1) 2025 2, 07/10/2021, 06/29/2020, Additional history exists DTaP/TDaP/Td (7 - Td or Tdap) 02/19/2026 02/20/2016, 02/01/2010, 02/01/2010, Additional history exists Pneumococcal Vaccine 0-49 Aged Out 2005, 2005, 2005 No longer eligible based on patient's age to complete this topic Hepatitis B Vaccine Completed 01/12/2006, 2005, 2005 HPV Completed 10/19/2017, 03/21, 02/20/2016 Insurance [facility] [address] Care Teams [facility] Hospitalist Relationship Specialty Start Date End Date Kuldeep Harris MD [address] [place] [id number] PCP - General Internal Medicine-Adolescent Medicine 12/15/23
--- OUTSIDE RECORDS SUMMARY | 2025-07-12 12:20 | XMS_ITS | Encounter Summary ---
Author Organization [facility] Address [address] [id number] Care Team Providers Care Trade Promotion Analyst Name Role Phone Con Maloneyen Champ MORALES Primary Care Provider +1- [phone] Reason for Referral * Consultation (Routine) - Authorized Specialty Diagnoses / Procedures Referred By Denise hernandez Referred To Contact Nephrology Diagnoses Abnormal kidney function Dorothy Kaplan, INTERNET MARKETING EXECUTIVE [address] [place] [address] Phone: tel: fax: [facility] Nephrology, Bone & Mineral Metabolism [address] [facility], [address] [place] [address] Phone: tel: fax: Referral ID Status Reason Start Date Expiration Date Visits Requested Visits Authorized [id number] Authorized Specialty Services Required 10/28/2024 04/29/2026 1 1 * Consultation (Routine) - Authorized Specialty Diagnoses / Procedures Referred By Denise hernandez Referred To Contact Endocrinology Diagnoses Acquired hypothyroidism Dorothy Kaplan, INTERNET MARKETING EXECUTIVE [address] [address] Phone: tel: fax: [facility]ology [address] [place] [address] Phone: tel: fax: Referral ID Status Reason Start Date Expiration Date Visits Requested Visits Authorized [id number] Authorized Specialty Services Required 10/28/2024 04/29/2026 1 1 Encounter Details Date Type Department Care Team (Latest Contact Info) Description 10/28/2024 [facility] [address] [place] [address] Dorothy Kaplan APRN [address] [address] Acquired hypothyroidism (Primary Dx); Abnormal kidney function [...] documented as of this encounter Care Teams Trade Promotion Analyst Relationship Specialty Start Date End Date Katherin Maloney DO [address] [address] PCP - General 02/01/21 documented as of this encounter
[2025-07-12 13:28] LABS: Hepatitis C Ab Qual. W/ RFX NEGATIVE (Negative)
[2025-07-12 14:20] LABS: Thyroid Stimulating Hormone 125.00 uIU/mL (0.465-4.68)
[2025-07-12 15:45] LABS: RPR W/RFX Titers Nonreactive (Nonreactive)
[2025-07-13 09:40] LABS: Hepatitis B Surface Antigen Negative (Negative); Rubella Antibodies, IgG 6.53 index (Immune >0.99)
[2025-07-13 18:50] LABS: T4 (Thyroxine) 8.2 ug/dl (5.53-11.0)
[2025-07-13 19:04] LABS: Free T4 (Free Thyroxine) 0.49 ng/dl (0.78-2.19)
[2025-07-13 19:48] LABS: Thyroid Stimulating Hormone 139.00 uIU/mL (0.465-4.68)
== END 2025-07-12 23:59 | disposition home or self-care (01) ==
LOC: LAB 11:32
PROVIDERS: Student in an Organized Health Care Education/Training Program; PCP Internal Medicine Adolescent Medicine; Visit Provider Obstetrics & Gynecology
DX: O21.0 Mild hyperemesis gravidarum (principal); Z3A.00 Weeks of gestation of pregnancy not specified
CPT/HCPCS: 36415; 84436; 84439; 84443; 85025; 86592; 86762; 86803; 86850; 87340; 87389

== ENCOUNTER 2025-07-16 10:55 | Emergency (ER) | payer OTHER, SELFPAY ==
--- OUTSIDE RECORDS SUMMARY | 2024-08-16 04:45 | XMS_ITS ---
Author Organization [facility] Address [address] [place] [address] Care Team Providers Care Pulp Making Plant Operator Name Role Phone Kuldeep Harris Primary Care Provider [phone] Dorothy Kaplan Unavailable [phone] REASON FOR VISIT 4 mo FU Encounters Encounter Location Date Provider Diagnosis [facility] [address] [place] [address] 08/16/2024 Dorothy Kaplan Plan Of Treatment No Information Progress Notes * Magaly NATIONOB:2005 (20 yo F)Acc No.[id number]:08/16/2024 Progress Notes Patient: Liz DIAZ Provider: VIOLETTA Monzon :2005 A ge:19 Y S ex:Female Date:08/16/2024 Address[address] [place], [id number] Pcp:Kuldeep Harris Subjective: * Chief Complaints: * 1 . 4 mo FU. * Medical History: Objective: * Vitals: Assessment: Plan: * Treatment: * * Electronic signature of Karyna Kaplan APRN on 07/16/2025 at 11:04 AM EDT Sign off status: Pending * Provider: VIOLETTA Monzon Date: 10/16/2023 Generated for Anabellai roxanna/Niraj/eTransmitting on: 1 11:04 AM EDT
--- OUTSIDE RECORDS SUMMARY | 2024-08-23 05:00 | XMS_ITS ---
Author Organization [facility] Address [address] [place] [address] Care Team Providers Care Template Layout Worker Name Role Phone Kuldeep Harris Primary Care Provider [phone] Dorothy Kaplan Unavailable [phone] REASON FOR VISIT 4 mo FU Encounters Encounter Location Date Provider Diagnosis [facility] [address] [place] [address] 08/23/2024 Dorothy Kaplan Plan Of Treatment No Information Progress Notes * Magaly NATIONOB:2005 (20 yo F)Acc No.[id number]:08/23/2024 Progress Notes Patient: Liz DIAZ Provider: VIOLETTA Monzon :2005 A ge:19 Y S ex:Female Date:08/23/2024 Address:[address] [place], [id number] Pcp:Kuldeep Harris Subjective: * Chief Complaints: * 1 . 4 mo FU. * Medical History: Objective: * Vitals: Assessment: Plan: * Treatment: * * Electronic signature of Karyna Kaplan APRN on 07/16/2025 at 11:04 AM EDT Sign off status: Pending * Provider: VIOLETTA Monzon Date: 1 10/24/2023 Generated for Printi roxanna/Niraj/eTransmitting on: 1 11:04 AM EDT
--- OUTSIDE RECORDS SUMMARY | 2024-12-24 17:30 | XMS_ITS ---
Author Organization [facility] PE D ARIK Address [address] [facility] [address] [facility] [address] [place], [place] [address] Care Team Providers Care Perianesthesia Rn Name Role Phone Kuldeep Harris Primary Care Provider [phone] Dorothy Kaplan Unavailable [phone] Migration, Provider Unavailable Unavailable REASON FOR VISIT Mult[facility] To [facility] Conversion Encounter Medications Medication SIG (Take, Route, Frequency, Duration) Notes Start Date End Date Status Famotidine 40 MG 1 tab(s) orally once a day (at bedtime); Duration: 14 days 10/26/2023 Active Levothyroxine Sodium 150 MCG 1 tab(s) or ally once a day; Duration: 30 days 12/06/2024 Active Encounters Encounter Location Date Provider Diagnosis [facility] PED ARIK [address] [facility] [address] [place] [address] 12/24/2024 Provider Migration Plan Of Treatment Medication Medication Name Sig Start Date Stop Date Notes Levothyroxine Sodium 150 MCG 1 tab(s) or ally once a day; Duration: 30 days 12/06/2024 Progress Notes * Magaly NATIONOB:2005 (20 yo F)Acc No.[id number]:12/24/2024 Patient: Liz DIAZ Provider: Chey medina Migration :2005 A ge:19 Y S ex:Female Date:12/24/2024 Address:[address] [place], [id number] Pcp:Kuldeep Harris Subjective: * Chief Complaints: * 1 . Multum To [facility] Conversion Encounter. * Medical History: * Medications: T aking Famotidine 40 MG Tablet 1 tab(s) orally once a day (at bedtime) Objective: * Vitals: Assessment: Plan: * Treatment: * * Electronic signature of Prov haleyr Migration on 07/16/2025 at 11:04 AM EDT Sign off status: Pending * Provider: Chey medina Migration Date: 0 12/24/2024 Generated for Kimi mcknight/Niraj/Arpitsmitting on: 1 11:04 AM EDT
--- OUTSIDE RECORDS SUMMARY | 2025-06-28 07:30 | XMS_ITS ---
Author Organization [facility] Address [address] [place], [place] [address] Care Team Providers Care Mailroom Personnel Name Role Phone StevenKuldeep Primary Care Provider Dorothy Kaplan Unavailable [phone] Ladi Wallace Unavailable [phone] Allergies No Known Allergies REASON FOR VISIT Vomiting; Stomach Pains Medications Medication SIG (Take, Route, Frequency, Duration) Notes Start Date End Date Status Levothyroxine Sodium 150 MCG 1 tab(s) or ally once a day; Duration: 30 days Active Promethazine HCl 12.5 MG 1 tablet as nee ded Orally every 6 hrs Active 28-0.8 MG 1 tablet Orally Once a day Active B-6 50 MG 1/2 tablet Orally 3 times a day Active Doxylamine Succinate (Sleep) 25 MG 1 tablet at bedtime as needed Orally Once a day Active Vital Signs Temperature 97.8 degrees Fahrenheit 06/28/20 25 Heart Rate 80 /min 06/28/2025 Blood pressure systolic 116 mm Hg 06/28/20 25 Blood pressure diastolic 74 mm Hg 025 Height 63.25 in 06/28/2025 Weight 140.2 lbs 06/28/2025 BMI 24.64 kg/m2 06/28/2025 Encounters Encounter Location Date Provider Diagnosis [facility] [address] [place], [place] [address] 06/28/2025 Ladi Wallace Gastroenteritis K52. 9 Assessments Encounter Date Diagnosis (ICD Code) Assessment Notes Treatment Notes Treatment Clinical Notes Section Notes 06/28/2025 Gastroenteritis (ICD-10 - K52.9) Reassurance. Discussed usual viral etiology and self-limiting condition. Encouraged BRAT diet and clear fluids. Monitor for evidence of significant dehydration and notify of any blood or mucous in stool. Avoid juice and anti-diarrheal agents. Use tylenol as needed for fevers. Plan Of Treatment Treatment Notes Assessment Notes Gastroenteritis Reassurance. Discuss ed usual viral etiology and self-limiting condition. Encouraged BRAT diet and clear fluids. Monitor for evidence of significant dehydration and notify of any blood or mucous in stool. Avoid juice and anti-diarrheal agents. Use tylenol as needed for fevers. Next Appt Details Follow Up: prn, Reason: Progress Notes * CHAPIS MagalyOB:2005 (20 yo F)Acc No.[id number]:06/28/2025 Progress Notes Patient: Liz DIAZ Provider: Josh Wallace APRN :2005 A ge:20 Y S ex:Female Date:06/28/2025 Address:[facility] [address], [facility], [id number] Pcp:Kuldeep Harris Subjective: * Chief Complaints: * 1 . Vomiting; Stomach Pains. * HPI: g en: 20 y/o female who is 13 weeks presents with vomiting and diarrhea. that began at 0200 this morning. No fevers. + body aches. No blood or mucus in stool. Exposed to stomach bug. Keeping down fluids. Has promethazine at home from [place]. * ROS: R ESPIRATORY: no C ough. C ONSTITUTIONAL: no L oss of appetite. n o F ever. D ERMATOLOGY: no R carmel. E NT: Reviewed, No Symptoms Reported: Y es. * Medical History: S easonal allergies, PE tubes, Hypothyroidism, MDD, PTSD, Anxiety d/o, Self cutting, Hashimotos' goiter, GERD, Normal EGD and colonoscopy 06/13, Hyperemesis gravidarm. * Medications: T aking Doxylamine Succinate (Sleep) 25 MG Tablet 1 tablet at bedtime as needed Orally Once a day , Taking B-6 50 MG Tablet 1/2 tablet Orally 3 times a day , Taking 28-0.8 MG Tablet 1 tablet Orally Once a day , Taking Promethazine HCl 12.5 MG Tablet 1 tablet as needed Orally every 6 hrs , Taking Levothyroxine Sodium 150 MCG Tablet 1 tab(s) orally once a day , Discontinued Cephalexin 500 MG Capsule 1 capsule Orally 3 times a day , Medication List reviewed and reconciled with the patient * Allergies: N .K.D.A. Objective: * Vitals: N urse: aw, Pain: 5, Temp: 97.8, RR: 16, HR: 80, BP: 116/74, Ht: 63.25, Wt: 140.2, BMI:24.64. * Examination: G astroenterology: General Appearance: p leasant, NAD. Oral cavity: n ormal. Sclera: a nicteric. Heart sounds: r egular, normal S1 S2 , no murmurs. Lungs: c lear, no crackles or wheezes. Abdomen: s oft, BS present, mild diffuse tenderness, n o guarding or rigidity, no masses felt. Skin W ithout acute rashes. Assessment: * Assessment: 1. G astroenteritis - K52.9 (Primary) Plan: * Treatment: * Follow Up: p rn * * Sign off status: Completed true * Provider: Josh Wallace APRN Date: Generated for Kimi mcknight/Niraj/Julianoitting on: 11:04 AM EDT History and Physical Notes * HPI (History of Present Illness) Category Sub-Category Detail Notes Category Not es gen 20 y/o female w ho is 13 weeks presents with vomiting and diarrhea. that began at 0200 this morning. No fevers. + body aches. No blood or mucus in stool. Exposed to stomach bug. Keeping down fluids. Has promethazine at home from [place] Examination Category Sub-Category Detail Notes Category Not es Gastroenterology Oral cavity: normal Sclera: anicteric Heart sounds: regular, normal S1 S 2 , no murmurs Lungs: clear, no crackles o r wheezes Abdomen: soft, BS present, mi ld diffuse tenderness, no guarding or rigidity, no masses felt Hernias: General Appearance: pleasant, NAD Skin Without acute rashes
[2025-07-16] VITALS (7 sets, daily range): BP systolic 108–130; BP diastolic 65–87; PULSE 76–89; RESP 13–15; TEMP 36.9–37; O2SAT 98–100; BMI 24.7
--- OUTSIDE RECORDS SUMMARY | 2025-07-16 11:03 | XMS_ITS | Data Portability ---
Author Organization [place] [facility] [place] [facility] Address [address] [place] [address] Care Team Providers Care Brain Picker Name Role Phone BLANCA VASQUEZ Primary Care [...] abdominal pain. -Will obtain CT results from [facility]. -F/u after procedures [email or web address] Not available 05/18/2023 11:56:30 07/09/2023 07/09/2023 18-year-old [...] continue use despite this. She stopped Mirtazapine. [email or web address] Not available 07/09/2023 21:28:09 08/07/2023 08/07/2023 18-year-old [...] hydration. She will continue. f/u 2 months [email or web address] Not available 07/07/2024 14:09:53 09/06/2024 09/06/2024 19-year-old [...] oral hydration. She will continue. f/u PRN [email or web address] Not available 09/06/2024 15:41:07 Plan of Treatment Reminders Order Date Submit Date Provider Last Modified By Organization Details Last Modified Time Details Appointments None recorded. Lab None recorded. Referral None recorded. Procedures None recorded. Surgeries None recorded. Imaging NM, gastric emptying scan [address] [place] [address] [address], [address] [place], [address], 13:23:19 Medication Orders coenzyme Q10 200 mg capsule 2023 [facility], [address], [address], 13:54:03 riboflavin (vitamin B2) 100 mg tablet 2023 024 [facility], [address], [address], 13:53:59 L-Carnitine 500 mg capsule 2023 024 [facility], [address], [address], 13:54:00 ondansetron 4 mg disintegrat ing tablet 2023 024 [facility], [address], [address], 4 13:46:55 promethazin e 25 mg tablet 2022 023 [facility], [address], [address], 3 14:48:15 Linzess 290 mcg capsule 2022 023 [facility], [address], [address], 3 13:48:25 hyoscyamine 0.125 mg sublingual tablet 2022 023 [facility], [address], [address], 3 13:48:26 Linzess 72 mcg capsule 2022 023 [facility], [address], [address], 3 11:07:13 mirtazapine 15 mg tablet 2022 023 [facility], [address], [address], 3 11:07:14 hyoscyamine 0.125 mg sublingual tablet 2022 023 [facility], [address], [address], 3 11:07:12 Patient TargetsNo targets recorded. Patient InstructionsNo instructions recorded. Reason for Referral None Reported. Results Created Date Observation Date Name Description Value Unit Range Abnormal Flag Note LastModifiedBy Organization Detail LastModifiedTime 08/16/20 24 08/16/2024 NM, gastr ic empty ing scan [facility] [address] [place] [address] Phone: Fax: Name: MELVIN NATION Exam Date: 2023 : 005 Age 19 years Gender : F Access ion: [id number] Physic abbi: MITCHELL ROD Facili ty: [facility] Facili ty HSV: Outpat ient Exam: GASTRI [...] Thank you for referr MELVIN Foley to [facility]. Legall y authen ticate d by CLARK CHEW 2023-09 12:03: 21 CC'ed Logic: Orderi ng Provid er: ALONDRA WINN Attend ing Provid er: ALONDRA WINN Referr ing Provid er: ALONDRA WINN Admitt ing Provid er: ALONDRA WINN [email or web address] [facility] - Physical Therapy [address] , [place], [address], 11/26/2024 11:40:43 Result Notes Documentation Provider Name and Address Organization Details Recorded Time Nm, Gastric Emptying Scan : [facility] [address] [place] [address] Name: MELVIN NATION Exam Date: 08/16/2024 : 2005 Age 19 years Gender: F Physician: MITCHELL ROD Facility: [facility] Facility HSV: Outpatient Exam: GASTRIC EMPTYING STUDY [...] Electronically signed by:Michael Law MD08/16/2024 06:[address] [facility] Dictated By: Michael Law Transcribed By: Transcribed On: 08/16/2024 12:03 PM Electronically signed by: Michael Law 08/16/2024 Thank you for referring MELVIN NATION to [facility]. Legally authenticated by CHERRY CHEW 2024-08-16 12:03:21 CC'ed Logic: Ordering Provider: ALONDRA WINN Attending Provider: ALONDRA WINN Referring Provider: ALONDRA WINN Admitting Provider: ALONDRA Rod PA-C [address], [place], [address], [place] - [facility] & [place] 11/26/2024 11:40:43 Problems Name Problem SNOMED Code Status Onset Date Resolution Date Notes Provider Name and Address Organization Details Recorded Time Nausea and vomiting 82227846 Active 2022 Mitchell Rod PA-C [address], [place], [address] , [place] - [facility] & [place] 3 11:05:43 Abdominal pain 01395170 Active [address], [place], [address] , [facility] - [facility] & [place] 3 11:05:47 Chronic idiopathic constipation 45669675 Active [address], [place], [place], [address] [place] [address] , [place] [facility] & [place] 3 11:05:55 Irritable bowel syndrome characterized by constipation 333920890 Active 2022 Mitchell Rod PA-C [address], [place], [place], [address] [place] [address] , [facility] - [facility] & [place] 3 13:48:02 Cyclical vomiting syndrome 32168818 Active [address], [place], [place], [address] [place] [address] , [place] [facility] & [place] 4 13:51:40 Irritable bowel syndrome 11961768 Active [address], [facility] [address] , [place] - [facility] & [place] 4 14:10:13 Problem Notes None recorded. Medical [...] Address Organization Details Last Updated DateTime 3 67354.2 7 g 25.3 kg/m2 83 % 160.02 cm 97.7 [degF] 66 /min 97 % 97 % 61 /min 118/83 mm[Hg] [facility] 10[facility]16 Date Recorded Body height Body mass index (BMI) Body mass index (BMI) [Percentile] Per age and sex Body weight Body temperature Oxygen saturation Oxygen saturation in Arterial blood by Pulse oximetry Heart rate Heart rate Systolic And Diastolic Provider Name and Address Organization Details Last Updated DateTime 4 160.02 cm 24.2 kg/m2 74 % [address] g 97.9 [degF] 97 % 97 % 67 /min 71 /min 135/90 mm[Hg] [facility] [place] 4 13:26:47 Date Recorded Body height Body mass index (BMI) Body mass index (BMI) [Percentile] Per age and sex Body weight Body temperature Oxygen saturation Oxygen saturation in Arterial blood by Pulse oximetry Heart rate Heart rate Systolic And Diastolic Provider Name and Address Organization Details Last Updated DateTime 3 160.02 cm 25.7 kg/m2 84 % 64926.8 9 g 97.3 [degF] 98 % 98 % 70 /min 58 /min 133/88 mm[Hg] Araseli Thomas [facility] & [place] 3 13:32:10 Date Recorded Body height Body mass index (BMI) [Percentile] Per age and sex Body mass index (BMI) Body weight Body temperature Oxygen saturation Oxygen saturation in Arterial blood by Pulse oximetry Heart rate Heart rate Systolic And Diastolic Provider Name and Address Organization Details Last Updated DateTime 3 160.02 cm 74 % 23.9 kg/m2 63060.3 3 g 97.7 [degF] 99 % 99 % 78 /min 88 /min 103/72 mm[Hg] Araseli Thomas [place] - [facility] & [place] 3 11:37:16 Date Recorded Body height Body mass index (BMI) Body mass index (BMI) [Percentile] Per age and sex Body weight Heart rate Heart rate Oxygen saturation Oxygen saturation in Arterial blood by Pulse oximetry Body temperature Systolic And Diastolic Provider Name and Address Organization Details Last Updated DateTime 4 160.02 cm 25.6 kg/m2 82 % 61501.3 8 g 70 /min 70 /min 99 % 99 % 97.6 [degF] 106/70 mm[Hg] Keeley Salmeron [facility] & [place] 4 14:20:10 Social History Question Answer Notes LastModified by [employer] Details LastModified Time Tobacco Smoking Status Current Every Day Smoker Vape Keeley Salmeron [facility], [facility] & [place] 05/18/2023 10:19:07 What Is Your Level Of Caffeine Consumption? Moderate Information not available 08/07/2023 Sex: Unknown Functional Status Question Answer Note LastModified by [employer] Details LastModified Time Do you use any illicit or recreational drugs? Yes Marijuana [email or web address] Information not available 05/18/2023 Do you or have you ever used any other forms of tobacco or nicotine? No Information not available 08/07/2023 What is your level of alcohol consumption? Occasional [email or web address] Information not available 05/18/2023 Mental Status None [...] ICD10 Code Diagnosis IMO Codes Diagnosis Note [id number] Mitchell Rod PA-C [facility] [address] [address] 05/18/2023 10:07:16 05/18/2023 11:41:24 Nausea and vomiting 41478344 R11.2 Abdominal pain 18061918 R10.9 Chronic id iopathic constipation 29296186 K59.04 [id number] Mitchell Rod PA-C [facility] [address] [address] 07/09/2023 13:18:33 07/09/2023 14:20:28 Nausea and vomiting 56056881 R11.2 Abdominal pain 11616647 R10.9 Irritable bowel syndrome characterized by constipation 061074784 K58.1 [id number] Johnathan Harp MD [facility] [address] [address] 08/07/2023 11:02:36 08/07/2023 11:51:56 Nausea and vomiting 99712008 R11.2 [id number] Mitchell Rod PA-C [facility] [address] [address] 07/07/2024 13:21:17 07/07/2024 13:54:47 Nausea and vomiting 86099656 R11.2 Cyclical v omiting syndrome 83013134 R11.15 Irritable bowel syndrome 98035845 K58.9 [id number] Mitchell Rod PA-C [facility] [address] [address] 09/06/2024 14:00:16 09/06/2024 15:06:50 Nausea and vomiting 08894016 R11.2 Cyclical v omiting syndrome 62862262 R11.15 Irritable bowel syndrome 88136115 K58.9 Health Concerns Section Related Observation LastModified by Organization Detai ls LastModified Time None Recorded Concern Status LastModified by Organization Details LastModified Time None Recorded Advance Directives Directive None Recorded Payers Insurance Date Sequence Insurance Name Policy Number Policy Alvarado Covered Member ID Alvarado Member ID Guarantor Name 09/03/2024 1 [employer] [facility] (MEDICAID HMO) Melvin Nation [id number] Melvin Nation Notes Date Note Type Note [...] denies melena or hematochezia. Mitchell Rod PA-C [address] [facility], [place], [address], [facility] [place] [facility] [place] 05/18/2023 11:56:40 07/09/2023 text/html PREVIOUS (05/18/23): Ms. [...] Mitchell Rod PA-C [address], [place], [address], [facility] & [place] 07/09/2023 21:28:30 08/07/2023 text/html Ms. Nation is a very pleasant 18-year-old female who presents for follow-up of nausea vomiting abdominal pain. She underwent EGD and colonoscopy on 06/25/2023. She continues to use marijuana daily. Weight stable. Johnathan Harp MD [address], [place], [address], [facility] & [place] 08/07/2023 14:48:24 07/07/2024 text/html Ms. Nation is [...] Mitchell Rod PA-C [address], [place], [address], [facility] & [place] 07/07/2024 14:10:32 09/06/2024 text/html PREVIOUS 07/07/24): Ms. [...] issues at this time. Mitchell Rod PA-C [address], [place], [address], [facility] - [place] - [place] & [place] 09/06/2024 15:41:29 OBGyn Episode No OBEpisode recorded.
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
--- NOTE | 2025-07-16 11:15 | XR_ITS ---
PROCEDURE INFORMATION: Exam: XR Chest Exam date and time: 07/16/2025 11:44 AM Age: 20 years old Clinical indication: Cough TECHNIQUE: Imaging protocol: Radiologic exam of the chest. Views: 1 view. COMPARISON: CR XR CHEST PORTABLE 12/21/2024 11:20 PM FINDINGS: Lungs: There is a new left perihilar infiltrate. Pleural spaces: Unremarkable. No pleural effusion. No pneumothorax. Heart/Mediastinum: Unremarkable. No cardiomegaly. Bones/joints: Unremarkable. IMPRESSION: New left perihilar infiltrate suspicious for pneumonia. Follow-up to resolution is recommended.
--- NOTE | 2025-07-16 11:20 | ED_ITS ---
Discharge Plan Disposition Patient Disposition: Home, Self-Care Prescriptions Prescriptions: New amoxicillin-pot clavulanate 875-125 mg tablet 1 tab PO BID 7 Days Qty: 14 0RF azithromycin 250 mg tablet See Rx Instructions .ROUTE .COMPLEX Qty: 6 0RF Rx Instructions: For 250 mg dose pack: take 500 mg today (day 1), then 250 mg for 4 days (days 2-5) No Action promethazine 12.5 mg tablet 12.5 mg PO PRN Patient Comments: TAKE 1 TABLET BY MOUTH EVERY 6 HOURS pyridoxine (vitamin B6) 25 mg tablet 25 mg PO TID Unisom (doxylamine) 25 mg tablet 25 mg PO BID levothyroxine 175 mcg tablet 175 mcg PO DAILY Qty: 60 1RF Rx Instructions: Take 1 tab every day Classic 28 mg iron- 800 mcg tablet 1 tab PO DAILY Qty: 30 11RF levothyroxine 150 mcg tablet 150 mcg PO DAILY Patient Comments: TAKE 1 TABLET BY MOUTH ONCE DAILY Referrals Follow up/Referrals: Kuldeep Harris MD [Primary Care Provider, Internal Medicine] - See instructions Activity Restrictions/Add. Instructions Additional Instructions/Restrictions: Your x-ray showed a right-sided pneumonia. Take antibiotics as prescribed. I do encourage you to follow-up with your DIRECT CHILL CASTING OPERATOR physician if symptoms do not improve. If you develop any new or worsening symptoms, or if you become concerned for your help for any reason, return to the emergency department for evaluation Clinical Impressions Clinical Impression: Pneumonia Instructions Patient Instructions: DI for Acute Abdominal Pain Print Language Print Language: Turkmen Discharge ED Provider: Holden Magana Adult HPI General Chief complaint: Abdominal Pain Stated complaint: 15 wks preg, neck/back pain, abd cramps, cough Time Seen by Provider: 07/16/25 11:10 Mode of Arrival: Ambulatory Source of Information: Patient Description of Symptoms (Recalled from ER Triage Doc. by RN): pt presents to ED with c/o neck pain, back pain with no injury. smyptoms ongoing for the past 4 days. pt also reports cough and lower abdominal pain ongoing for the past 2 days. pt is 15 weeks , first , pt sees dr rodriguez for ob. pt reports pain with urination. History of Present Illness HPI narrative: Liz Mota is a 20y female with a history of hyperemesis gravidarum who is currently 15 weeks , hypothyroidism, urinary tract infection who presents to the emergency department for complaints of neck pain, lower back pain, nasal congestion, cough and dysuria for 4 days. Patient states that she was seen by her OB physician 4 days ago and then developed symptoms afterwards. She states that she has tried Tylenol and heating pads on her neck for her headache without significant relief. She denies any fevers. She does report some abdominal pain that is lower and thinks that she has had a urinary tract infection, however she is not sure the results of her urine studies that were obtained on the . She denies any complications with this other than low thyroid and they recently increased her levothyroxine dosing. Related Data Home Medications ?Medication ?Instructions ?Recorded ?Confirmed levothyroxine 150 mcg tablet 150 mcg PO DAILY 05/26/25 07/13/25 promethazine 12.5 mg tablet 12.5 mg PO PRN 06/13/25 doxylamine succinate 25 mg tablet 25 mg PO BID 5 07/13/25 (Unisom (doxylamine)) pyridoxine (vitamin B6) 25 mg 25 mg PO TID 07/12/25 tablet Previous Rx's ?Medication ?Instructions ?Recorded vits no.126-ferrous fum 1 tab PO DAILY #30 ta bs 05/25/25 28 mg iron-folic acid 800 mcg tablet (Classic ) levothyroxine 175 mcg tablet 175 mcg PO DAILY #60 tabs 07/13/25 amoxicillin 875 mg-potassium 1 tab PO BID 7 days #14 t abs 07/16/25 clavulanate 125 mg tablet azithromycin 250 mg tablet See Rx Instructions PO .COM PLEX #6 07/16/25 tabs Allergies Allergy/AdvReac Type Severity Reaction Status Date / Time mushroom Allergy Rash Verified 07/13/25 15:32 [facility] Disclaimer: The information contained in this section may have been updated after the patient was seen, as this information can be updated by other users. Medical History Amenorrhea Ovarian cyst Confirmed intrauterine on ultrasound Burn Encounter for IUD removal Injury of foot, left Hemorrhagic cyst of right ovary Bilateral lower abdominal pain Spell of behavior change Syncope and collapse Dehydration Syncope and collapse Elevated serum creatinine Encounter for IUD insertion Migraine Syncope, vasovagal Gastritis Low back pain Acute low back pain due to trauma Enteritis Pancreatitis Acute left flank pain Abdominal pain Chronic GERD Depo-Provera contraceptive status Anxiety Encounter for related examination in first trimester Marijuana use Serous otitis media This seems to be more of an issue on the left side than the right Dysfunction of left eustachian tube Tinnitus PTSD (post-traumatic stress disorder) GERD (gastroesophageal reflux disease) Hypothyroid Suicidal intent Intentional acetaminophen overdose Suicidal ideation Pain in female pelvis Surgical History Status post arthroscopy of left shoulder Status post shoulder surgery H/O adenoidectomy H/O thyroidectomy History of tonsillectomy and adenoidectomy History of placement of ear tubes Family History Other No significant family history Social History Smoking Status: Current every day smoker tobacco type: e-cigarettes alcohol intake: never substance use type: marijuana current occupational status: previously employed Travel in the last 8 weeks?: None number of children: 0 caffeine: No Have you lived/traveled outside [place] in past 30 days?: No Contact w/someone who lives/traveled outside US past 30 days?: No Exposure to someone with infectious disease in past 14 days?: No Do you have a fever (greater than 100.4 F or 38 C)?: No Have you tested positive for COVID-19?: No Exposed to someone with COVID-19 in past 14 days?: No Do you have a sore throat?: No Do you have a cough?: No Do you have any weakness?: No Do you have any diarrhea?: No Are you experiencing any unusual bleeding?: No Do you have any muscle aches/pain?: Yes Do you have any abdominal pain?: No Are you experiencing loss of taste or smell?: No Other Medical History Have you received the Flu Vaccine for this season: No Have you received the Pneumonia Vaccine: No ROS Obtained: Yes Systems reviewed as appropriate & no additional complaints except as documented Physical Exam General General appearance: alert and in no apparent distress Comment: Non-toxic Head Head exam: atraumatic Eye Eye exam: Present normal appearance ENT ENT exam: Present normal external ear exam Neck Neck exam: Present full ROM Chest Chest inspection: Present symmetric chest wall rise Respiratory Respiratory exam: Present normal lung sounds bilaterally; Absent respiratory distress or wheezes Cardiovascular Cardiovascular exam: Present regular rate and normal rhythm Abdominal Exam Abdominal exam: Present soft and tenderness (generalized but primarily over the suprapubic region); Absent distention or guarding Extremities Exam Extremities exam: Present normal inspection Back Exam Back exam: Present normal inspection Neurological Exam Neurological exam: Present alert and oriented X3 Psychiatric Psychiatric exam: Present normal affect Skin Skin exam: Present warm and dry Medical Decision Making Medical Records Screening: Per USPSTF and CDC recommendations, given the prevalence of disease in our region, it is our hospital?s policy to screen for HIV and viral Hepatitis for all patients aged 18 and over and those with ongoing risk factors. Rick Inquiry Pt receiving controlled substance: No Vital Signs: 07/16/25 11:00 07/16/25 11:02 07/16/25 11:30 Temperature 98.6 F Temperature Source Oral Pulse Rate 86 89 Pulse Rate [Left Radial] 88 Respiratory Rate 13 Blood Pressure 120/74 109/66 L Blood Pressure [Right Arm] 120/74 Blood Pressure Mean Blood Pressure Mean [Right Arm] 89 Blood Pressure Source Blood Pressure Position 02 Sat by Pulse Oximetry 100 100 99 Oxygen Delivery Method Room Air Room Air 07/16/25 12:22 07/16/25 12:30 07/16/25 13:00 Temperature Temperature Source Pulse Rate 84 88 85 Pulse Rate [Left Radial] Respiratory Rate Blood Pressure 108/70 L 110/68 111/65 Blood Pressure [Right Arm] Blood Pressure Mean 80 Blood Pressure Mean [Right Arm] Blood Pressure Source Blood Pressure Position 02 Sat by Pulse Oximetry 98 99 99 Oxygen Delivery Method Room Air Room Air Room Air 07/16/25 13:32 Temperature 98.4 F Temperature Source Oral Pulse Rate 76 Pulse Rate [Left Radial] Respiratory Rate 15 Blood Pressure 130/87 Blood Pressure [Right Arm] Blood Pressure Mean Blood Pressure Mean [Right Arm] Blood Pressure Source Automatic Cuff Blood Pressure Position Supine 02 Sat by Pulse Oximetry Oxygen Delivery Method Room Air Lab Data Lab Results 07/16/25 11:05: WBC 11.8, RBC 4.19 L, Hgb 12.7, Hct 37.5, MCV 89.5, MCH 30.3, MCHC 33.9, RDW 13.7, Plt Count 216, MPV 9.8, Neut % (Auto) 75.2, Lymph % (Auto) 15.9, [place] % (Auto) 7.2, Eos % (Auto) 0.7, Baso % (Auto) 0.4, Neut # (Auto) 8.9 H, Lymph # (Auto) 1.9, [place] # (Auto) 0.9, Eos # (Auto) 0.1, Baso # (Auto) 0.1, S odium 132 L, Potassium 3.9, Chloride 99, Carbon Dioxide 26, Anion Gap 10.9, BUN 5 L, Creatinine 0.70, Estimated Creat Clear 129, Estimated GFR 107, Est GFR ( Amer) 129, Glucose 85, Calcium 9.0, Total Bilirubin 0.5, AST 32, ALT 15, Alkaline Phosphatase 90, C-Reactive Protein 161.4 H, Total Protein 8.0 D, Albumin 4.3, Globulin 3.7 H, Albumin/Globulin Ratio 1.2 07/16/25 11:44: SARS-CoV-2 (PCR) Not detected, Influenza A Untype (PCR) Not detected, Influenza Type B (PCR) Not detected 07/16/25 11:47: Urine Color Yellow, Urine Appearance Clear, Urine pH 8.0, Ur Specific [place] 1.015, Urine Protein Negative, Urine Glucose (UA) Negative, Urine Ketones 2+, Urine Blood Negative, Urine Nitrate Negative, Urine Bilirubin Negative, Urine Urobilinogen 0.2, Ur Leukocyte Esterase Trace, Urine RBC None, Urine WBC 3-5, Ur Squamous Epith Cells 3-5, Urine Bacteria Trace 07/16/25 11:05 07/16/25 11:05 Orders (Tests/Meds): ED MEDICATIONS Discontinued Medications Generic Name Dose Route Start Last Admin Trade Name Daniel PRN Reason Stop Dose Admin Acetaminophen 1,000 mg 07/16/25 11:15 07/16/25 11:42 Acetaminophen 500mg Tab PO 07/16/25 11:16 1,000 mg ONCE ONE Administration ORDERS Category Date Time Status CXR --portable [XR chest portable] Stat Exams 07/16/25 11:15 Completed POCUS Point of Care (ER Only) Stat Exams 07/16/25 11:20 Completed CBC w/Auto Diff [Complete Blood Count Auto Diff] Stat Lab 07/16/25 11:05 Completed CMP [Comprehensive Metabolic Panel] Stat Lab 07/16/25 11:05 Completed CRP [C-Reactive Protein] Stat Lab 07/16/25 11:05 Completed Rapid PCR Covid and Flu A/B Stat Lab 07/16/25 11:44 Completed UA [Urinalysis and Microscopic] Stat Lab 07/16/25 11:47 Completed Medical Decision Narrative: Liz Mota is a 20y female with a history of hyperemesis gravidarum who is currently 15 weeks , hypothyroidism, urinary tract infection who presents to the emergency department for complaints of neck pain, lower back pain, nasal congestion, cough and dysuria for 4 days. Patient states that she was seen by her OB physician 4 days ago and then developed symptoms afterwards. She states that she has tried Tylenol and heating pads on her neck for her headache without significant relief. She denies any fevers. She does report some abdominal pain that is lower and thinks that she has had a urinary tract infection, however she is not sure the results of her urine studies that were obtained on the . She denies any complications with this other than low thyroid and they recently increased her levothyroxine dosing. She denies any vaginal bleeding, discharge or leakage of fluids. On arrival, patient is hemodynamically stable with normal BP of 120/74, HR 88, afebrile, 100% SpO2 on room air. Physical exam, as stated above, reveals a non-toxic appearing female in no distress. She has a gravid abdomen that is diffusely tender but non-peritonitic. Cardiopulmonary exam without wheezing, rales, or rhonchi. No murmurs or rubs. differential diagnosis includes but is not limited to: pneumonia, viral respiratory illness, electrolyte derangement, UTI, among others. The most morbid conditions were considered and workup was based on these. Workup in the emergency department included UA, rapid PCR COVID and flu, [id number]-ci-ycml OB ultrasound, chest x-ray, CRP, CMP, CBC with differential. Patient was administered 1000 mg of oral Tylenol. I did discuss patient utility of obtaining chest x-ray and shielding her abdomen to protect her fetus from radiation exposure and she is in agreement to proceed with this. Chest x-ray interpreted by me personally. There is a left perihilar infiltrate concerning for pneumonia. See radiology report for details. Dzomn-gq-pzay OB ultrasound showed heart rate of 141 bpm. Fetus is frequently moving. See procedure note for details. Patient's lab work shows normal white blood cell count of 11.8, no anemia, mildly low sodium of 132 but electrolytes grossly unremarkable nonactionable. No KYLE. CRP is elevated at 161. Patient's urine with ketones but no evidence of infection. Given findings on chest x-ray and symptomatology consistent with pneumonia, I do feel that she would benefit from a course of antibiotics. Patient is being prescribed oral Augmentin and azithromycin. I did encourage her to follow-up with her OB physician and return to the emergency department for any new or worsening symptoms. All questions were answered. She demonstrated understanding and was in agreement this plan. She was then discharged from the emergency department in stable condition. Procedures Limited Ultrasound Indication:: Limited OB ultrasound Indication: 15 weeks , abdominal pain Identified structures: Uterus Findings: Uterus: Definitive IUP FHR: 141 bpm Impression: -IUP: Present - heart rate: 141 Images [were saved] to permanent archive The study [was] technically adequate CPT Transabdominal: 11890-99 This study was performed by me, and I personally interpreted all images/videos. Based on my clinical judgement, these images were adequate and did not necessitate further imaging. Critical Care Critical Care Time Critical Care Time: No
[2025-07-16 11:24] LABS: Hematocrit 37.5 % (37.0-47.0); Hemoglobin 12.7 g/dL (12.2-16.2); Immature Granulocytes % 0.6 %; Mean Corpuscular HGB Conc 33.9 g/dL (31.8-35.4); Mean Corpuscular Hemoglobin 30.3 pg (27.0-31.2); Mean Corpuscular Volume 89.5 fl (81-99); Nucleated Red Blood Cells % 0 %; Platelet Count 216 K/mm3 (142-424); Red Blood Count 4.19 M/mm3 (4.20-5.40); Red Cell Distribution Width-SD 45.0 fL; White Blood Count 11.8 K/mm3 (4.5-13.0)
[2025-07-16 11:27] LABS: Albumin Level 4.3 g/dl (3.5-5.0); Chloride 99 mmol/L (98-107); Potassium 3.9 mmoL/L (3.5-5.1); Sodium 132 mmol/L (136-145)
[2025-07-16 11:30] LABS: Alanine Aminotransferase 15 U/L (12-78); Albumin/Globulin Ratio 1.2 (1.1-1.8); Alkaline Phosphatase 90 U/L (38-126); Anion Gap 10.9 mEq/L (5-15); Aspartate Amino Transferase 32 U/L (14-36); Bilirubin,Total 0.5 mg/dl (0.2-1.3); Blood Urea Nitrogen 5 mg/dl (7-17); Calcium 9.0 mg/dl (8.4-10.2); Carbon Dioxide 26 mmol/L (22.0-30.0); Creatinine Clearance Estimated 129 mL/min (50-200); Creatinine,Serum 0.70 mg/dl (0.52-1.04); Estimated Glomerular Filt Rate 107 ml/min (>60); GFR (African American) 129 ML/MIN (>60); Globulin 3.7 g/dL (1.3-3.2); Glucose 85 mg/dl (74-100); Total Protein,Serum 8.0 g/dl (6.3-8.2)
[2025-07-16] MEDS: ACETAMINOPHEN 500MG TAB 1000 MG PO (11:42)
[2025-07-16 12:03] LABS: Coronavirus 19, PCR Not Detected (NotDetected); Influenza A, PCR Not Detected (NotDetected); Influenza B, PCR Not Detected (NotDetected)
[2025-07-16 12:05] LABS: Microscopic, Urine URINE MICROSCOPIC (MICROSCOPIC)
[2025-07-16 12:21] LABS: C-Reactive Protein 161.4 mg/L (0-4)
[2025-07-16 13:12] LABS: Bilirubin,Urine Negative (Negative); Color,Urine YELLOW (Yellow); Glucose,Urine (UA) Negative (Negative); Ketones,Urine 2+ (Negative); Leukocyte Esterase,Urine TRACE (Negative); PH,Urine 8.0 (5.0-8.5); Protein,Urine Negative (Negative); Specific Gravity, Urine 1.015 (1.005-1.030); Urobilinogen,Urine 0.2 EU/dl (0.2)
[2025-07-16 13:29] LABS: Bacteria,Urine Trace /lpf
== END 2025-07-16 13:32 | disposition home or self-care (01) ==
PROVIDERS: Emergency Provider Student in an Organized Health Care Education/Training Program; PCP Internal Medicine Adolescent Medicine
DX: O99.512 Diseases of the respiratory system complicating pregnancy, second trimester (principal); J18.9 Pneumonia, unspecified organism; E87.1 Hypo-osmolality and hyponatremia; M54.2 Cervicalgia; R09.81 Nasal congestion; O99.332 Smoking (tobacco) complicating pregnancy, second trimester; F17.290 Nicotine dependence, other tobacco product, uncomplicated; Z3A.15 15 weeks gestation of pregnancy
CPT/HCPCS: 71045; 80053; 81001; 85025; 86140; 87636; 99284; 99285

== ENCOUNTER 2025-08-08 11:39 | Outpatient (CLI) | payer OTHER, SELFPAY ==
--- NOTE | 2025-08-08 11:51 | US_ITS ---
FINAL REPORT TECHNIQUE: Multiple sonographic images of the kidneys were obtained in the longitudinal and transverse planes. CLINICAL HISTORY: lower back pain-- 18 wk preg FINDINGS: The right kidney measures 9.1 cm in sied-rt-thfn length. There is no mass or stone. There is mild right hydronephrosis. Cortical echogenicity and cortical thickness are within normal limits. The left kidney measures 10.1 cm in olhw-uj-eegh length. There is no mass or stone. There is minimal left hydronephrosis. Cortical echogenicity and cortical thickness are within normal limits. IMPRESSION: Mild right, minimal left hydronephrosis, likely physiologic related to . No renal mass or stone. Reviewed, Interpreted and Dictated by Agapito Anne MD Transcribed by Corina Johns Authenticated and [facility]
[2025-08-08 12:17] LABS: Hematocrit 34.7 % (37.0-47.0); Hemoglobin 11.5 g/dL (12.2-16.2); Immature Granulocytes % 0.9 %; Mean Corpuscular HGB Conc 33.1 g/dL (31.8-35.4); Mean Corpuscular Hemoglobin 29.8 pg (27.0-31.2); Mean Corpuscular Volume 89.9 fl (81-99); Nucleated Red Blood Cells % 0 %; Platelet Count 187 K/mm3 (142-424); Red Blood Count 3.86 M/mm3 (4.20-5.40); Red Cell Distribution Width-SD 43.5 fL; White Blood Count 10.9 K/mm3 (4.5-13.0)
[2025-08-08 12:32] LABS: Alanine Aminotransferase 41 U/L (12-78); Albumin Level 4.2 g/dl (3.5-5.0); Albumin/Globulin Ratio 1.6 (1.1-1.8); Alkaline Phosphatase 71 U/L (38-126); Anion Gap 6.4 mEq/L (5-15); Aspartate Amino Transferase 35 U/L (14-36); Bilirubin,Total 0.4 mg/dl (0.2-1.3); Blood Urea Nitrogen 11 mg/dl (7-17); Calcium 9.4 mg/dl (8.4-10.2); Carbon Dioxide 27 mmol/L (22.0-30.0); Chloride 101 mmol/L (98-107); Creatinine,Serum 0.70 mg/dl (0.52-1.04); Estimated Glomerular Filt Rate 107 ml/min (>60); GFR (African American) 129 ML/MIN (>60); Globulin 2.7 g/dL (1.3-3.2); Glucose 77 mg/dl (74-100); Potassium 4.4 mmoL/L (3.5-5.1); Sodium 130 mmol/L (136-145); Total Protein,Serum 6.9 g/dl (6.3-8.2)
[2025-08-08 12:34] VITALS: BP 106/52; PULSE 86; RESP 18; TEMP 36.9; O2SAT 97; BMI 25.8
[2025-08-08 12:49] LABS: T4 (Thyroxine) 23.8 ug/dl (5.53-11.0)
[2025-08-08 12:59] LABS: Free T4 (Free Thyroxine) 1.45 ng/dl (0.78-2.19)
[2025-08-08 13:03] LABS: Thyroid Stimulating Hormone 1.58 uIU/mL (0.465-4.68)
== END 2025-08-08 14:51 | disposition home or self-care (01) ==
LOC: OBOUT 11:41 → OB 11:42
PROVIDERS: PCP Internal Medicine Adolescent Medicine; Visit Provider Obstetrics & Gynecology
DX: O99.891 Other specified diseases and conditions complicating pregnancy (principal); N13.30 Unspecified hydronephrosis; Z3A.18 18 weeks gestation of pregnancy
CPT/HCPCS: 36415; 76770; 80053; 84436; 84439; 84443; 85025; 99212

== ENCOUNTER 2025-08-15 12:36 | Outpatient (CLI) | payer OTHER, SELFPAY ==
--- NOTE | 2025-08-15 13:00 | US_ITS ---
PROCEDURE: US OB /MATERNAL DETAIL CLINICAL INDICATION: 20 wk anatomy scan COMPARISON: US US OB TRANSVAGINAL from 05/16/2025 FINDINGS: Transabdominal sonographic images of the pelvis were obtained. From her established due date she is 19 weeks 6 days. Single viable intrauterine gestation. Breech position. Placenta: Anteriorplacenta grade 1. There are several small placental lakes seen. There is an average amount of fluid. The cervix appears satisfactory. Closed and measuring 3.41 cm in length. Complete survey performed and was unremarkable on the submitted images as in PACS. No discrete anomalies identified on survey imaging by technologist. Active fetus. Three-vessel cord with satisfactory umbilical cord insertion. 4- chamber heart noted. Situs, aortic arch, LVOT, RVOT, three-vessel view appear normal. Survey of brain & ventricles Unremarkable. Cerebellum, thalamus, choroid plexus, cisterna magna appear normal. Face and neck survey unremarkable. Profile, nasion, lips and nose appeared normal. Diaphragm and chest views unremarkable. Abdomen: Both kidneys noted and unremarkable. Stomach and bladder noted and satisfactory. Spine: Survey of the spine satisfactory with no anomalies identified nor imaged. Cervical, thoracic, lower spine appear normal. Both arms and legs noted. Amniotic Fluid: Adequate. Measurements: Average ultrasound age 20weeks 2days. Estimated due date by ultrasound age 0412/31/2025. Estimated weight 335g BPD = 20weeks 3days HC = 20weeks 2days AC = 20weeks 3days FL = 20weeks 0 days Growth Percentile= 62 Heart Rate = 149bpm Cerebellum = 19weeks 4days Humerus = 20weeks 6days HC/AC is 1.17 FL/BPD is 0.67 FL/AC is 0.21 IMPRESSION: 1. Viable fetus in the breech presentation with an anterior placenta grade 1. There are several small placental lakes. 2. The fluid is within normal limits. 3. Anatomical scan appears normal. 4. biometry is consistent with the dates. Dictated by: Rahul Whitehead MD 08/15/2025 14:16 Rahul Whitehead MD in [place] 08/15/2025 14:16
== END 2025-08-15 23:59 | disposition home or self-care (01) ==
LOC: RAD 12:37
PROVIDERS: PCP Internal Medicine Adolescent Medicine; Visit Provider Obstetrics & Gynecology
DX: O32.1XX0 Maternal care for breech presentation, not applicable or unspecified (principal); O28.3 Abnormal ultrasonic finding on antenatal screening of mother; Z3A.19 19 weeks gestation of pregnancy
CPT/HCPCS: 76811

== ENCOUNTER 2025-09-05 13:30 | Outpatient (CLI) | payer OTHER, SELFPAY ==
--- OUTSIDE RECORDS SUMMARY | 2006-11-09 | XMS_ITS | Encounter Summary ---
Author Organization [facility] Address [address] [place] [id number] Care Team Providers Care Patient Observer Name Role Phone Unavailable Primary Care Provider Unavailabl e Encounter Details Date Type Department Care Team (Late st Contact Info) Description 11/09/2006 Hospital Encounter [facility] Division of Cardiology [address] [place] [phone] Social History Tobacco Use Types Packs/Day Years Used Date Smoking Tobacco: Never Assessed Comments Unknown Sex and Gender Information Value Date Recorded Sex Assigned at Not on file Legal Sex Female 5:20 AM EST Gender Identity Not on file Sexual Orientation Not on file documented as of this encounter Plan of Treatment Not on file documented as of this encounter Visit Diagnoses Not on filedocumented in this encounter
--- OUTSIDE RECORDS SUMMARY | 2025-09-05 13:33 | XMS_ITS | Encounter Summary ---
Author Organization [facility] Address [address] [id number] Care Team Providers Care Logistics System Engineer Name Role Phone Con Maloneyen Champ MORALES Primary Care Provider [phone]- [phone] Reason for Referral * Consultation (Routine) - Authorized Specialty Diagnoses / Procedures Referred By Denise hernandez Referred To Contact Nephrology Diagnoses Abnormal kidney function Dorothy Kaplan, DRY DIP WORKER [address] [place] [address] Phone: tel: fax: [facility] Nephrology, Bone & Mineral Metabolism [address] [facility], [address] [place] [address] Phone: tel: fax: Referral ID Status Reason Start Date Expiration Date Visits Requested Visits Authorized [id number] Authorized Specialty Services Required 10/28/2024 04/29/2026 1 1 * Consultation (Routine) - Authorized Specialty Diagnoses / Procedures Referred By Denise hernandez Referred To Contact Endocrinology Diagnoses Acquired hypothyroidism Dorothy Kaplan, DRY DIP WORKER [address] [address] Phone: tel: fax: [facility] [address] [place] [id number] Phone: tel: fax: Referral ID Status Reason Start Date Expiration Date Visits Requested Visits Authorized [id number] Authorized Specialty Services Required 10/28/2024 04/29/2026 1 1 Encounter Details Date Type Department Care Team (Latest Contact Info) Description 10/28/2024 [facility] [address] [place] [address] Dorothy Kaplan APRN [address] [address] Acquired hypothyroidism (Primary Dx); Abnormal kidney function [...] documented as of this encounter Care Teams Logistics System Engineer Relationship Specialty Start Date End Date Katherin Maloney DO [address] [address] PCP - General 02/01/21 documented as of this encounter
--- OUTSIDE RECORDS SUMMARY | 2025-09-05 13:33 | XMS_ITS | Clinical Summary ---
Author Organization [facility] Address [address] [place] [address] Phone Care Team Providers Care Aerospace Physiological Technician Name Role Phone Kuldeep Harris MD Primary Care Provider [phone] Allergies No known active allergies Medications LEVOthyroxine [...] 2005 HPV Completed 10/19/2017, 03/21, 02/20/2016 Insurance [facility] [id number] Care Teams Aerospace Physiological Technician Relationship Specialty Start Date End Date Kuldeep Harris MD [address] [place] [id number] PCP - General Internal Medicine-Adolescent Medicine 12/15/23
--- OUTSIDE RECORDS SUMMARY | 2025-09-05 13:33 | XMS_ITS | Encounter Summary ---
Author Organization [facility] Address [address] [place] [address] Care Team Providers Care Copyholder Name Role Phone Katherin Maloney DO Primary Care Provider [phone]- [phone] Encounter Details Date Type Department Care Team (Late st Contact Info) Description 04/16/2023 [facility] Practice [address] [place] [address] Nica Rae DO [address] [place] [address] [place] [id number] Chronic abdominal pain (Primary Dx) Social [...] documented as of this encounter Care Teams Copyholder Relationship Specialty Start Date End Date Katherin Maloney DO [address] [place] [address] PCP - General 02/01/21 documented as of this encounter
--- OUTSIDE RECORDS SUMMARY | 2025-09-05 13:33 | XMS_ITS | Clinical Summary ---
Author Organization [facility] Address [address] [place] [address] Care Team Providers Care Real Estate Office Manager Name Role Phone [place] Katherin Champ MORALES Primary Care Provider [phone]- [phone] Allergies No known active allergies Medications FLUoxetine [...] SDOH Screenings 2023 [facility]-Adult SDOH Screenings 2023 [id number] Vaccine ( season) 2025 [facility]-Influenza Vaccine (#1) [...] to complete this topic Insurance [address] [place] [id number] [facility] MEDICAID * Guarantor: RONNIE WELLINGTON Account Type Relation to Patient Date of Phone Billing Address Personal/Family Father [address] [place], [place] [address] [facility] MEDICAID [place] [id number] [facility] MEDICAID Advance Directives Documents on File Type Date Recorded Patient Ethylene Plant Helper Expl anation Power of Food Mixer Assembler 08/12/2021 POA for An otf Care Teams Real Estate Office Manager Relationship Specialty Start Date End Date Katherin Maloney DO [facility] [place] [address] PCP - General 02/01/21
--- OUTSIDE RECORDS SUMMARY | 2025-09-05 13:33 | XMS_ITS | Clinical Summary ---
Author Organization [facility] Address [address] [place] [id number] Care Team Providers Care Tax Collection Coordinator Name Role Phone Unavailable Primary Care Provider Unavailabl e Source Comments [facility] is fully rolled out with thefollowing exceptions:General Clinical Research [facility] Social History Tobacco Use Types Packs/Day [...] 2006 DTAP/Tdap/Td IMMUNIZATION (1 - Tdap) 01/10/2012 Yearly Physical Ages 3-18+ 01/10/2016 VARICELLA IMMUNIZATION (1 of 2 - 13+ 2-dose series) 2018 HPV IMMUNIZATION (1 - 3-dose series) 01/10/2020 MCV4 IMMUNIZATION (1 - 2-dos e series) 2021 MENINGOCOCCAL B VACCINE (1 o f 2 - Standard) 2021 HEPATITIS B IMMUNIZATION (1 of 3 - 19+ 3-dose series) 01/10/2024 AMB SEASONAL FLU VACCINE (#1) 05/22/2025 COVID-19 Vaccine ( - 2024-2 6 season) 2025 HIB IMMUNIZATION Aged Out No [...]
[2025-09-05 15:33] LABS: Free T4 (Free Thyroxine) 1.43 ng/dl (0.78-2.19)
[2025-09-05 15:48] LABS: Thyroid Stimulating Hormone 5.51 uIU/mL (0.465-4.68)
== END 2025-09-05 23:59 | disposition home or self-care (01) ==
LOC: LAB 13:30
PROVIDERS: PCP Internal Medicine Adolescent Medicine; Visit Provider Student in an Organized Health Care Education/Training Program
DX: E89.0 Postprocedural hypothyroidism (principal)
CPT/HCPCS: 36415; 84439; 84443